=== PATIENT | female | born 1960 | race Caucasian/White ===

== ENCOUNTER → 2017-11-07 | Outpatient (CLI) | payer MEDICARE | PROVIDERS: ATTEND Internal Medicine Infectious Disease | DX: Z51.81 Encounter for therapeutic drug level monitoring (principal); Z79.2 Long term (current) use of antibiotics | CPT/HCPCS: 80202 ==

== ENCOUNTER 2017-12-28 19:52 | Emergency (ER) | payer MEDICARE, OTHER ==
[~2017-12-28] VITALS: Ht 152.4 cm; Wt 45.4 kg
[2017-12-28 20:11] LABS: BASOPHILS % (AUTO) 0 % (0-10); EOSINOPHILS % (AUTO) 0 % (0-10); LYMPHOCYTES # (AUTO) 0.6 X 10^3 (1.0-4.0); LYMPHOCYTES % (AUTO) 6 % (12-44); MEAN CORPUSCULAR HEMOGLOBIN 30 PG (25-34); MEAN CORPUSCULAR HGB CONC 33 G/DL (32-36); MEAN CORPUSCULAR VOLUME 91 FL (80-99); MEAN PLATELET VOLUME 9.8 FL (7.4-10.4); MONOCYTES % (AUTO) 10 % (0-12); NEUTROPHILS # (AUTO) 8.1 X 10^3 (1.8-7.8); NEUTROPHILS % (AUTO) 84 % (42-75); PLATELET COUNT 201 10^3/uL (130-400); RED BLOOD COUNT 1.77 10^6/uL (4.35-5.85); RED CELL DISTRIBUTION WIDTH 19.9 % (10.0-14.5); WHITE BLOOD COUNT 9.7 10^3/uL (4.3-11.0)
[2017-12-28 20:13] LABS: HEMATOCRIT 16 % (35-52); HEMOGLOBIN 5.3 G/DL (11.5-16.0)
[2017-12-28 20:24] LABS: INR 1.4 (0.8-1.4); PROTHROMBIN TIME PATIENT 17.3 SEC (12.2-14.7)
[2017-12-28 20:28] LABS: BAND NEUTROPHILS 6 %; BASOPHILS % (MANUAL) 0 %; EOSINOPHILS % (MANUAL) 0 %; LYMPHOCYTES % (MANUAL) 6 %; MONOCYTES % (MANUAL) 5 %; NEUTROPHILS % (MANUAL) 83 %; RBC MORPH NORMAL
[2017-12-28 20:29] LABS: ALBUMIN 2.8 GM/DL (3.2-4.5); BILIRUBIN,TOTAL 0.3 MG/DL (0.1-1.0); CALCIUM 9.3 MG/DL (8.5-10.1); CREATININE SERUM 3.81 MG/DL (0.60-1.30); POTASSIUM 4.6 MMOL/L (3.6-5.0); TOTAL PROTEIN 7.4 GM/DL (6.4-8.2)
[2017-12-28] MEDS ORDERED: fentaNYL INJECTION 100 MCG/2 ML AMP IVP ONE (20:30)
[2017-12-28] MEDS ORDERED: CEFEPIME INJECTION 2,000 MG in NS (IVPB) 50 ML IV ONE (20:30)
[2017-12-28] MEDS ORDERED: NS IV 1000 ML 1,000 ML ONE (21:19)
--- NOTE | 2017-12-28 21:28 | Diagnostic Imaging Report ---
PROCEDURE: CT abdomen and pelvis without contrast. TECHNIQUE: Multiple contiguous axial images were obtained through the abdomen and pelvis without the use of intravenous contrast. INDICATION: Recent unknown surgery with swelling at the incision site. COMPARISON: No comparison available. FINDINGS: There is a moderate right-sided pleural collection demonstrated. This is of low density compatible with an effusion. There is some minor right base consolidation. There do, however, appear to be alveolar infiltrates within the left lower lobe suggesting pneumonitis or pneumonia. The liver demonstrates no noncontrast evidence of a focal intrahepatic abnormality. The patient is status post cholecystectomy. There are a few bubbles of biliary gas likely related to sphincterotomy. There is gas noted within the common bile duct. The spleen demonstrates no focal abnormality. There is no adrenal mass. The pancreas is unremarkable. The kidneys are atrophic and demonstrate nephrocalcinosis. There is no hydronephrosis. There is an apparent gastric lap band. The small and large bowel appear normal in caliber without evidence of obstruction. There is some mild diffuse thickening demonstrated of the sigmoid colon and the rectum which may be on a congestive basis or related to third spacing. There is no free fluid within the pelvis. The urinary bladder is decompressed by a Benoit catheter. The uterus is unremarkable without evidence of a pelvic mass. No pathologically enlarged lymph nodes are demonstrated. Rather severe atherosclerotic calcification is present within the aorta and within its branches. There are degenerative features present within the spine but no acute or suspicious osseous abnormality. Extensive body wall edema is noted without evidence of a definable fluid collection or abscess. IMPRESSION: 1. Moderate right pleural effusion. 2. Alveolar opacities within the left lower lobe suggest developing pneumonia or pneumonitis. 3. Operative changes of cholecystectomy with pneumobilia. There is no abnormal biliary dilatation. 4. Prior operative changes of a gastric lap band. 5. Atrophic kidneys with nephrocalcinosis. 6. Advanced atherosclerotic disease. 7. No findings of bowel obstruction. The diffuse thickening of the distal segments of the colon is favored to likely be on a congestive basis as there is no adjacent inflammation within the pericolonic fat. 8. No free air, free fluid or abscess demonstrated. 9. Extensive body wall edema. Dictated by: Dictated on workstation # [id number]
--- NOTE | 2017-12-28 21:37 | Diagnostic Imaging Report ---
EXAMINATION: Portable chest INDICATION: Altered mental status with infected wound from abdominal surgery. Correlation is made with CT examination from 12/28/2017. FINDINGS: Patient's known right-sided effusion is not as well delineated on this examination. There is blunting of the right costophrenic angle. The patchy opacity within the left lower lobe minimally evident. In the right lung, there also appear to be some interstitial opacities within the more superior aspect of the right lung. Given the appearance on CT within the left lower lobes this is favored to be on an infectious basis. Heart size is mildly prominent but the central pulmonary vascularity appears normal. There is no pneumothorax. There is a gastric lap band in the left upper quadrant. IMPRESSION: 1. Patchy interstitial infiltrates within both lungs and known right-sided pleural effusion. Given the CT appearance of the opacities on the abdominal CT, this is favored to be on an infectious basis. Asymmetry would also be atypical for pulmonary edema. Dictated by: Dictated on workstation # [id number]
--- NOTE | 2017-12-28 21:42 | ED General ---
General Chief Complaint: Altered Mental Status Stated Complaint: AMS Nursing Triage Note: PT TO ROOM #5 [facility]IA [facility] C[facility] FROM [facility] WITH C/O ALTERED MENTAL STATUS. FACILITY REPORTS PT HAD DIALYSIS THIS AM AND RETURNED WITH ALTERED MENTAL STATUS. FACILITY REPORTS PT REFUSES TO ALLOW ABD DRSG TO BE CHANGED FROM SURGICAL PROCEDURE UNKNOWN. UPON ARRIVAL TO ED PT ABLE TO FOLLOW COMMANDS AND ALERT TO SELF, SAME, AND . PT UNABLE TO RECALL DAYS EVENTS AND CURRENT SITUATION. PT REPORTS PAIN TO LOWER ABD. LOWER ABD DRSG REMOVED WITH PROVIDER IN ROOM AND AREA NOTED TO HAVE PURULENT DRAINAGE WITH FOUL ODOR NOTED. [facility] PLACED 20G IV TO RT HAND AND INFUSED 350ML NS IN TRANSIT TO ED. LUNG SOUNDS CTA BILAT. 2MM PERRLA. BS 208. PT NOTED TO HAVE MILD EDEMA TO BILAT LOWER EXTREMITIES. Nursing Sepsis Screen: Possible Severe Sepsis Risk Source of Information: Patient, EMS, Family, Prison Records, Old Records Exam Limitations: No Limitations History of Present Illness Date Seen by Provider: Dec 28, 2017 Time Seen by Provider: 19:53 Initial Comments This 57-year-old woman presents to the emergency room via EMS from [facility] in [place], [place], with concerns about fever and altered mental status. Patient went to dialysis this morning and returned home disoriented, confused, and somewhat lethargic as reported by detention staff. She has an extensive chronic wound of the lower abdomen that is cared for by detention staff. They report the wound seems to be worsening and there appears to be black necrotic tissue in the wound. There is also greenish drainage coming from the wound (as seen on dressings). Patient has had increased pain in that area in recent days and her Percocet dose was recently increased. Staff also report that Protonix and antibiotics (Bactrim) were ordered to start today. Patient has a history of anemia and has required transfusions in the past. There is no obvious source of bleeding per detention staff. Patient developed a fever of 100.9 today for detention staff. Vital signs are stable upon arrival. Patient's primary care provider is Dr. Tate. Her critical care specialist is Ana Barrios. Patient is normally alert, oriented, conversational, and able to get around in a wheelchair independently. Allergies and Home Medications Allergies Coded Allergies: lisinopril (Verified Allergy, Unknown, 12/28/17) Patient Home Medication List Home Medication List Reviewed: Yes Review of Systems Review of Systems Constitutional: see HPI EENTM: no symptoms reported Respiratory: no symptoms reported Cardiovascular: no symptoms reported Gastrointestinal: no symptoms reported Genitourinary: see HPI : No Musculoskeletal: no symptoms reported Skin: see HPI Psychiatric/Neurological: See HPI Hematologic/Lymphatic: See HPI Immunological/Allergic: no symptoms reported Past Uydzebx-Xkthmg-Pygqyp Hx Past Med/Social Hx: Reviewed and Corrections made Patient Social History Recent Foreign Travel: No Contact w/Someone Who Travel: No Recent Infectious Disease Expo: No Past Medical History Surgeries: Yes (fistula left upper extremity) Abdominal Respiratory: No Cardiac: Yes (chronic hypoxia) High Cholesterol, Hypertension Neurological: No : No 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: No Genitourinary: Yes Renal Failure, Dialysis Gastrointestinal: No Musculoskeletal: No Endocrine: Yes Diabetes, Insulin dep HEENT: No Cancer: No Psychosocial: No Integumentary: Yes (chronic wound of the abdomen) Blood Disorders: Yes (anemia) Physical Exam-Suspected Sepsis Physical Exam Vital Signs Vital Signs - First Documented 12/28/17 19:55 Temp 99.6 Pulse 96 Resp 18 B/P (MAP) 138/83 (101) Pulse Ox 100 O2 Delivery Nasal Cannula O2 Flow Rate 2.00 Capillary Refill : Less Than 3 Seconds Blood Pressure Mean: 101 Height, Weight, BMI Height: 5'0" Weight: 100lbs. oz. 45.798095sw; BMI Method:Estimated General Appearance: No Apparent Distress, WD/WN HEENT: PERRL/EOMI, Normal ENT Inspection, Other (mucous membranes somewhat dry) Neck: Normal Inspection Respiratory: Lungs Clear, Normal Breath Sounds, No Accessory Muscle Use, No Respiratory Distress Cardiovascular: Regular Rate, Rhythm, No Edema, No Murmur Gastrointestinal: Abnormal Bowel Sounds (decreased bowel sounds), Tenderness, Other (there is a large deep packed wound extending across the lower abdomen. There appears to be some necrotic tissue within the wound. There is some green drainage on the dressing.) Extremity: Normal Capillary Refill, Normal Inspection, No Pedal Edema Neurologic/Psychiatric: Alert, No Motor/Sensory Deficits, Normal Mood/Affect, refrigerator car icer II-XII Norm as Tested, Other (alert and talkative but disoriented/confused) Skin: warm/dry, other (large packed abdominal wound with apparent necrotic tissue. There is greenish drainage on the dressing. Skin is indurated and very tender) Focused Exam Lactate Level 12/28/17 20:22: Lactic Acid Level 1.31 Lactic Acid Level Laboratory Tests Test 12/28/17 20:22 Lactic Acid Level 1.31 MMOL/L (0.50-2.00) Progress/Results/Core Measures Suspected Sepsis Recent Fever Within 48 Hours: Yes Infection Criteria Present: Suspected New Infection New/Unexplained Altered Menta: Yes Sepsis Screen: Possible Severe Sepsis Risk SIRS Temperature:99.6 Pulse: 96 Respiratory Rate: 18 Laboratory Tests 12/28/17 19:55: White Blood Count 9.7 Blood Pressure 138 /83 Mean: 101 12/28/17 20:22: Lactic Acid Level 1.31 Laboratory Tests 12/28/17 19:55: Creatinine 3.81H, INR Comment 1.4, Platelet Count 201, Total Bilirubin 0.3 Results/Orders Lab Results Laboratory Tests Test 12/28/17 19:55 12/28/17 20:01 12/28/17 20:22 Range/Units White Blood Count 9.7 4.3-11.0 10^3/uL Red Blood Count 1.77 L 4.35-5.85 10^6/uL Hemoglobin 5.3 *L 11.5-16.0 G/DL Hematocrit 16 *L 35-52 % Mean Corpuscular Volume 91 80-99 FL Mean Corpuscular Hemoglobin 30 25-34 PG Mean Corpuscular Hemoglobin Concent 33 32-36 G/DL Red Cell Distribution Width 19.9 H 10.0-14.5 % Platelet Count 201 130-400 10^3/uL Mean Platelet Volume 9.8 7.4-10.4 FL Neutrophils (%) (Auto) 84 H 42-75 % Lymphocytes (%) (Auto) 6 L 12-44 % Monocytes (%) (Auto) 10 0-12 % Eosinophils (%) (Auto) 0 0-10 % Basophils (%) (Auto) 0 0-10 % Neutrophils # (Auto) 8.1 H 1.8-7.8 X 10^3 Lymphocytes # (Auto) 0.6 L 1.0-4.0 X 10^3 Monocytes # (Auto) 1.0 0.0-1.0 X 10^3 Eosinophils # (Auto) 0.0 0.0-0.3 10^3/uL Basophils # (Auto) 0.0 0.0-0.1 10^3/uL Neutrophils % (Manual) 83 % Lymphocytes % (Manual) 6 % Monocytes % (Manual) 5 % Eosinophils % (Manual) 0 % Basophils % (Manual) 0 % Band Neutrophils 6 % Blood Morphology Comment NORMAL Prothrombin Time 17.3 H 12.2-14.7 SEC INR Comment 1.4 0.8-1.4 Activated Partial Thromboplast Time 40 H 24-35 SEC Sodium Level 133 L 135-145 MMOL/L Potassium Level 4.6 3.6-5.0 MMOL/L Chloride Level 94 L 98-107 MMOL/L Carbon Dioxide Level 20 L 21-32 MMOL/L Anion Gap 19 H 5-14 MMOL/L Blood Urea Nitrogen 33 H 7-18 MG/DL Creatinine 3.81 H 0.60-1.30 MG/DL Estimat Glomerular Filtration Rate 12 BUN/Creatinine Ratio 9 Glucose Level 155 H 70-105 MG/DL Calcium Level 9.3 8.5-10.1 MG/DL Corrected Calcium 10.3 H 8.5-10.1 MG/DL Total Bilirubin 0.3 0.1-1.0 MG/DL Aspartate Amino Transf (AST/SGOT) 25 5-34 U/L Alanine Aminotransferase (ALT/SGPT) 19 0-55 U/L Alkaline Phosphatase 275 H 40-136 U/L Total Protein 7.4 6.4-8.2 GM/DL Albumin 2.8 L 3.2-4.5 GM/DL Glucometer 208 H 70-110 MG/DL Lactic Acid Level 1.31 0.50-2.00 MMOL/L My Orders Orders - ZACHERY BRANTLEY MD Cbc With Automated Diff (12/28/17 20:03) Comprehensive Metabolic Panel (12/28/17 20:03) Blood Culture (12/28/17 20:03) Sputum Culture (12/28/17 20:03) Urinalysis (12/28/17 20:03) Urine Culture (12/28/17 20:03) Protime With Inr (12/28/17 20:03) Partial Thromboplastin Time (12/28/17 20:03) Chest 1 View, Ap/Pa Only (12/28/17 20:03) Saline Lock/Iv-Start (12/28/17 20:03) Saline Lock/Iv-Start (12/28/17 20:03) Vital Signs Adult Sepsis Patie Q15M (12/28/17 20:03) O2 (12/28/17 20:03) Remove Rings In Anticipation O (12/28/17 20:03) Lactic Acid Analyzer (12/28/17 20:03) Manual Differential (12/28/17 19:55) Red Cells Leukocytes Reduced (12/28/17 20:14) Ct Abdomen/Pelvis Wo (12/28/17 20:14) Wound Culture (12/28/17 20:14) Cefepime Injection (Maxipime Injection) (12/28/17 20:30) Type And Screen (12/28/17 20:14) Fentanyl Injection (Sublimaze Injection (12/28/17 20:30) Ns Iv 1000 Ml (Sodium Chloride 0.9%) (12/28/17 21:19) Medications Given in ED Current Medications Medications Dose Ordered Sig/Jorge A Route Start Time Stop Time Status Last Admin Dose Admin Cefepime HCl 2000 mg/Sodium Chloride 50 ml @ 100 mls/hr ONCE ONCE IV 12/28/17 20:30 12/28/17 20:59 DC 12/28/17 20:50 100 MLS/HR Fentanyl Citrate 12.5 mcg ONCE ONCE IVP 12/28/17 20:30 12/28/17 20:31 DC 12/28/17 20:49 12.5 MCG Vital Signs/I&O 12/28/17 12/28/17 19:55 21:51 Temp 99.6 98.0 Pulse 96 82 Resp 18 18 B/P (MAP) 138/83 (101) 149/40 Pulse Ox 100 96 O2 Delivery Nasal Cannula Nasal Cannula O2 Flow Rate 2.00 2.00 Capillary Refill : Less Than 3 Seconds Blood Pressure Mean: 101 Progress Note : Progress Note Septic workup was pursued because of report of fever. Patient received approximately 700 mL of normal saline as started by EMS. Patient was found to be severely anemic and blood transfusion was started with one unit of packed red blood cells. No active bleeding was identified. Blood and wound cultures were obtained. Cefepime 2 g IV was started for initial antibiotic management. Case was discussed with Dr. Hanks, hospitalist at [facility] in [place]. He excepts a transfer of patient. He requested the transfusion of one unit packed red blood cells as well as initial antibiotic therapy. He is in agreement with cefepime and vancomycin as a second antibiotic to be administered. We were not able to start the vancomycin prior to transfer. Blood was transfusing at the time of transfer. Patient's vital signs remained stable. She remained alert. CT scan was reviewed just prior to transfer and patient had a right pleural effusion with possible superimposed pneumonia. The abdominal wound did not demonstrate any deep abscess or other major findings on CT imaging. Blood sugar remained stable. Catheter urine was attempted but no urine was produced. Patient states she no longer produces any significant urine. Patient's states she is a full code but does not want prolonged life supporting measures if she has neurologic compromise. He did present to the emergency room prior to transfer. He supported the decision for transfer, antibiotics, and transfusion. Imaging studies were clouded to [facility]. Diagnostic Imaging Diagonstic Imaging: CT Plain Films/CT/US/NM/MRI: abdomen, pelvis Comments CT abdomen and pelvis viewed by me and report reviewed. See report below: NAME: LUKE DANGELO [facility] REC#: [id number] PT STATUS: REG ER : 1960 PHYSICIAN: ZACHERY BRANTLEY MD ADMIT DATE: 12/28/17/ER Signed Date of Exam: 12/28/17 CT ABDOMEN/PELVIS WO PROCEDURE: CT abdomen and pelvis without contrast. TECHNIQUE: Multiple contiguous axial images were obtained through the abdomen and pelvis without the use of intravenous contrast. INDICATION: Recent unknown surgery with swelling at the incision site. COMPARISON: No comparison available. FINDINGS: There is a moderate right-sided pleural collection demonstrated. This is of low density compatible with an effusion. There is some minor right base consolidation. There do, however, appear to be alveolar infiltrates within the left lower lobe suggesting pneumonitis or pneumonia. The liver demonstrates no noncontrast evidence of a focal intrahepatic abnormality. The patient is status post cholecystectomy. There are a few bubbles of biliary gas likely related to sphincterotomy. There is gas noted within the common bile duct. The spleen demonstrates no focal abnormality. There is no adrenal mass. The pancreas is unremarkable. The kidneys are atrophic and demonstrate nephrocalcinosis. There is no hydronephrosis. There is an apparent gastric lap band. The small and large bowel appear normal in caliber without evidence of obstruction. There is some mild diffuse thickening demonstrated of the sigmoid colon and the rectum which may be on a congestive basis or related to third spacing. There is no free fluid within the pelvis. The urinary bladder is decompressed by a Benoit catheter. The uterus is unremarkable without evidence of a pelvic mass. No pathologically enlarged lymph nodes are demonstrated. Rather severe atherosclerotic calcification is present within the aorta and within its branches. There are degenerative features present within the spine but no acute or suspicious osseous abnormality. Extensive body wall edema is noted without evidence of a definable fluid collection or abscess. IMPRESSION: 1. Moderate right pleural effusion. 2. Alveolar opacities within the left lower lobe suggest developing pneumonia or pneumonitis. 3. Operative changes of cholecystectomy with pneumobilia. There is no abnormal biliary dilatation. 4. Prior operative changes of a gastric lap band. 5. Atrophic kidneys with nephrocalcinosis. 6. Advanced atherosclerotic disease. 7. No findings of bowel obstruction. The diffuse thickening of the distal segments of the colon is favored to likely be on a congestive basis as there is no adjacent inflammation within the pericolonic fat. 8. No free air, free fluid or abscess demonstrated. 9. Extensive body wall edema. Dictated by: Dictated on workstation # [id number] Dict: 12/28/172114 Trans: 12/28/172138 Interpreted by: BRENT DAVIS MD Electronically signed by: BRENT DAVIS MD 12/28/172138 Diagonstic Imaging: Xray Plain Films/CT/US/NM/MRI: chest Comments Chest x-ray viewed by me and report reviewed. See report below: NAME: LUKE DANGELO [facility] REC#: [id number] PT STATUS: REG ER : 1960 PHYSICIAN: ZACHERY BRANTLEY MD ADMIT DATE: 12/28/17/ER Signed Date of Exam: 12/28/17 CHEST 1 VIEW, AP/PA ONLY EXAMINATION: Portable chest INDICATION: Altered mental status with infected wound from abdominal surgery. Correlation is made with CT examination from 12/28/2017. FINDINGS: Patient's known right-sided effusion is not as well delineated on this examination. There is blunting of the right costophrenic angle. The patchy opacity within the left lower lobe minimally evident. In the right lung, there also appear to be some interstitial opacities within the more superior aspect of the right lung. Given the appearance on CT within the left lower lobes this is favored to be on an infectious basis. Heart size is mildly prominent but the central pulmonary vascularity appears normal. There is no pneumothorax. There is a gastric lap band in the left upper quadrant. IMPRESSION: 1. Patchy interstitial infiltrates within both lungs and known right-sided pleural effusion. Given the CT appearance of the opacities on the abdominal CT, this is favored to be on an infectious basis. Asymmetry would also be atypical for pulmonary edema. Dictated by: Dictated on workstation # [id number] Dict: 12/28/172127 Trans: 12/28/172138 Interpreted by: BRENT DAVIS MD Electronically signed by: BRENT DAVIS MD 12/28/172138 Departure Impression Primary Impression: Febrile illness Additional Impressions: End stage renal failure on dialysis Pleural effusion, right Chronic abdominal wound infection Qualified Codes: S31.109A - Unspecified open wound of abdominal wall, unspecified quadrant without penetration into peritoneal cavity, initial encounter; L08.9 - Local infection of the skin and subcutaneous tissue, unspecified Abdominal pain Qualified Codes: R10.30 - Lower abdominal pain, unspecified Altered mental status Qualified Codes: R41.82 - Altered mental status, unspecified Severe anemia Disposition: 02 XFER SHT-TRM HOSP Condition: Stable Transfer Time Spoke to Accepting Phy: 20:35 Transfer Progress Notes Case was discussed with who accepts transfer. Transfer Time: 22:03 Transfer Facility: [facility] via [facility] Method of Transfer: EMS Departure-Patient Inst. Referrals: KELLI TATE MD (PCP/Family) Primary Care Physician ZACHERY BRANTLEY MD Dec 28, 2017 21:42
[2017-12-28 21:51] VITALS: BP 149/40
[2017-12-28 22:01] VITALS: BP 141/48
[2017-12-28 22:13] VITALS: BP 141/48
== END 2017-12-28 22:13 | disposition short-term general hospital (02) ==
LOC: EDUNIT# 19:52 → ER 19:53
DX: E11.22 Type 2 diabetes mellitus with diabetic chronic kidney disease (principal); I12.0 Hypertensive chronic kidney disease with stage 5 chronic kidney disease or end stage renal disease; N18.6 End stage renal disease; J91.8 Pleural effusion in other conditions classified elsewhere; D64.9 Anemia, unspecified; L98.499 Non-pressure chronic ulcer of skin of other sites with unspecified severity; R41.82 Altered mental status, unspecified; E78.00 Pure hypercholesterolemia, unspecified; Z99.2 Dependence on renal dialysis; Z88.8 Allergy status to other drugs, medicaments and biological substances
CPT/HCPCS: 36415; 36430; 51702; 71045; 74176; 80053; 82962; 83605; 85007; 85027; 85610; 85730; 86850; 86900; 86901; 86920; 87040; 87070; 87077; 87186; 87205; 99291

== ENCOUNTER 2018-01-05 18:59 | Emergency (ER) | payer MEDICARE, OTHER ==
[~2018-01-05] VITALS: Ht 167.6 cm; Wt 68.0 kg
[2018-01-05 20:04] LABS: BASOPHILS % (AUTO) 0 % (0-10); EOSINOPHILS % (AUTO) 0 % (0-10); HEMATOCRIT 23 % (35-52); HEMOGLOBIN 7.4 G/DL (11.5-16.0); LYMPHOCYTES # (AUTO) 0.7 X 10^3 (1.0-4.0); LYMPHOCYTES % (AUTO) 18 % (12-44); MEAN CORPUSCULAR HEMOGLOBIN 29 PG (25-34); MEAN CORPUSCULAR HGB CONC 32 G/DL (32-36); MEAN CORPUSCULAR VOLUME 91 FL (80-99); MEAN PLATELET VOLUME 10.1 FL (7.4-10.4); MONOCYTES # (AUTO) 0.6 X 10^3 (0.0-1.0); MONOCYTES % (AUTO) 14 % (0-12); NEUTROPHILS # (AUTO) 2.8 X 10^3 (1.8-7.8); NEUTROPHILS % (AUTO) 68 % (42-75); PLATELET COUNT 180 10^3/uL (130-400); RED BLOOD COUNT 2.58 10^6/uL (4.35-5.85); RED CELL DISTRIBUTION WIDTH 19.2 % (10.0-14.5); WHITE BLOOD COUNT 4.1 10^3/uL (4.3-11.0)
--- NOTE | 2018-01-05 20:15 | ED Integumentary General ---
General Chief Complaint: Skin/Wound Problems Stated Complaint: WOUND Nursing Triage Note: PT BROUGHT IN BY EMS WITH COMPLAINT OF ABD WOUND. PT RECENTLY DISCHARGED FROM [facility] FOR WOUND CARE. PER ASSISTED, PT NEEDED TO BE SENT TO FOR WOUND CARE TONIGHT. PT DOES NOT KNOW HOW WOUND BEGAN Source: patient Exam Limitations: no limitations History of Present Illness Date Seen by Provider: Jan 05, 2018 Time Seen by Provider: 19:15 Initial Comments Here with report of wound to the abdomen that there is concerns about worsening. Patient has been in another hospital for this wound and recently got out of the hospital at [facility] in [place], [place] and sent back to snf. Wound care evaluation was done today and apparently the wound care physician, Dr. 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 He is concerned that debridement and sent her for evaluation. Initially he wanted the patient sent to [facility] as reportedly [facility] in [place] does not believe it needs surgery. Dr. Childers is of different opinion. He actually requested EMS transport directly to but this was unable to be accomplished and patient was transferred to our facility. Patient reports that she feels about the same she' s has for the last several days. No recent fever. Wound pain is about the same. Denies nausea or vomiting. She does have PICC line placed to the right arm. She is apparently on vancomycin IV. History challenge by multiple facilities evaluating and doctors evaluating the patient. Timing/Duration: this afternoon Severity: mild, moderate Location: torso (pannus of the abdomen) Possible Cause: no cause identified Associated Symptoms: change in skin texture, edema; No fever Allergies and Home Medications Allergies Coded Allergies: lisinopril (Verified Allergy, Unknown, 12/28/17) Patient Home Medication List Home Medication List Reviewed: Yes Review of Systems Review of Systems Constitutional: see HPI; No chills, No fever Respiratory: no symptoms reported Cardiovascular: no symptoms reported Gastrointestinal: No diarrhea, No nausea, No vomiting Genitourinary: no symptoms reported Musculoskeletal: no symptoms reported Skin: see HPI, change in color, lesions, other (large pannus wound of the left and right lower abdomen) Psychiatric/Neurological: No Symptoms Reported All Other Systems Reviewed Negative Unless Noted: Yes Past Qqykeeu-Vvqfwk-Efzimw Hx Past Med/Social Hx: Reviewed Nursing Past Med/Soc Hx Patient Social History Alcohol Use: Denies Use Recreational Drug Use: No Smoking Status: Former Smoker 2nd Hand Smoke Exposure: No Recent Foreign Travel: No Contact w/Someone Who Travel: No Recent Infectious Disease Expo: No Recent Hopitalizations: No Immunizations Up To Date Tetanus Booster (TDap): Unknown PED Vaccines UTD: Yes Seasonal Allergies Seasonal Allergies: No Past Medical History Surgeries: Yes (fistula left upper extremity) Abdominal Respiratory: No Cardiac: Yes (chronic hypoxia) High Cholesterol, Hypertension Neurological: No 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: No Genitourinary: Yes Renal Failure, Dialysis Gastrointestinal: No Gastroesophageal Reflux Musculoskeletal: No Endocrine: Yes Diabetes, Insulin dep HEENT: No Cancer: No Psychosocial: No Integumentary: Yes (chronic wound of the abdomen) Recent Skin Changes Blood Disorders: Yes (anemia) Family Medical History Reviewed Nursing Family Hx Physical Exam Vital Signs Vital Signs - First Documented 01/05/18 19:00 Temp 97.7 Pulse 94 Resp 18 B/P (MAP) 119/25 (56) Pulse Ox 98 O2 Delivery Nasal Cannula O2 Flow Rate 2.00 Capillary Refill : Less Than 3 Seconds General Appearance: WD/WN, no apparent distress HEENT: PERRL/EOMI, pharynx normal Neck: full range of motion, supple Cardiovascular: regular rate, rhythm, no murmur Respiratory: lungs clear, normal breath sounds Gastrointestinal: soft, tenderness (lower pannus) Extremities: non-tender, normal inspection Neurologic/Psychiatric: alert, oriented x 3 Skin Problem Location: torso (anterior abdomen on the pannus from the area of the suprapubic region extending to the pannus fold from hip to hip) Skin Problem Character: other (wound is surrounded by warmth. There is a black pressure-like cover over the pannus wound. The wound extends well into the pannus. There does not appear to be foul-smelling drainage.) Progress/Results/Core Measures Results/Orders Lab Results Laboratory Tests Test 01/05/18 19:09 Range/Units White Blood Count 4.1 L 4.3-11.0 10^3/uL Red Blood Count 2.58 L 4.35-5.85 10^6/uL Hemoglobin 7.4 L 11.5-16.0 G/DL Hematocrit 23 L 35-52 % Mean Corpuscular Volume 91 80-99 FL Mean Corpuscular Hemoglobin 29 25-34 PG Mean Corpuscular Hemoglobin Concent 32 32-36 G/DL Red Cell Distribution Width 19.2 H 10.0-14.5 % Platelet Count 180 130-400 10^3/uL Mean Platelet Volume 10.1 7.4-10.4 FL Neutrophils (%) (Auto) 68 42-75 % Lymphocytes (%) (Auto) 18 12-44 % Monocytes (%) (Auto) 14 H 0-12 % Eosinophils (%) (Auto) 0 0-10 % Basophils (%) (Auto) 0 0-10 % Neutrophils # (Auto) 2.8 1.8-7.8 X 10^3 Lymphocytes # (Auto) 0.7 L 1.0-4.0 X 10^3 Monocytes # (Auto) 0.6 0.0-1.0 X 10^3 Eosinophils # (Auto) 0.0 0.0-0.3 10^3/uL Basophils # (Auto) 0.0 0.0-0.1 10^3/uL Sodium Level 141 135-145 MMOL/L Potassium Level 3.9 3.6-5.0 MMOL/L Chloride Level 99 98-107 MMOL/L Carbon Dioxide Level 18 L 21-32 MMOL/L Anion Gap 24 H 5-14 MMOL/L Blood Urea Nitrogen 44 H 7-18 MG/DL Creatinine 5.30 H 0.60-1.30 MG/DL Estimat Glomerular Filtration Rate 8 BUN/Creatinine Ratio 8 Glucose Level 210 H 70-105 MG/DL Lactic Acid Level 1.19 0.50-2.00 MMOL/L Calcium Level 9.3 8.5-10.1 MG/DL Corrected Calcium 10.1 8.5-10.1 MG/DL Total Bilirubin 0.2 0.1-1.0 MG/DL Aspartate Amino Transf (AST/SGOT) 13 5-34 U/L Alanine Aminotransferase (ALT/SGPT) 14 0-55 U/L Alkaline Phosphatase 194 H 40-136 U/L C-Reactive Protein High Sensitivity 3.97 H 0.00-0.50 MG/DL Total Protein 7.8 6.4-8.2 GM/DL Albumin 3.0 L 3.2-4.5 GM/DL My Orders Orders - FAIZAN MUIR MD Cbc With Automated Diff (01/05/18 19:56) Comprehensive Metabolic Panel (01/05/18 19:56) Hs C Reactive Protein (01/05/18 19:56) Lactic Acid Analyzer (01/05/18 19:56) Blood Culture (01/05/18 19:56) Vital Signs/I&O 01/05/18 19:00 Temp 97.7 Pulse 94 Resp 18 B/P (MAP) 119/25 (56) Pulse Ox 98 O2 Delivery Nasal Cannula O2 Flow Rate 2.00 Blood Pressure Mean: 56 Progress Progress Note : Progress Note Seen and evaluated. I did speak with Dr. Childers, the wound care physician who is phone number is [phone] regarding the wound. He is very concerned that this is what necrosis and medical condition and need surgical debridement. We will evaluate labs and I will try to contact [facility] in [place], [place] as that has been the facility treating her. Patient does have fairly significant wound. She is on dialysis and is due for dialysis tomorrow as she has it on Monday, and Monday. Monitor patient. 2035: I have spoken more with the patient about her illness. I have initiated contact with [facility] in [place], [place]. Patient and family report that the snf has concerns about their ability to care for her wound. The wound care team has concerns about the type of wound and the management needs. 2109: I have spoken with the surgeon on-call at [facility] in [place], [place]. 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 He indicates that she could be reevaluated at [facility] in [place]. We can arrange for direct admission to that facility and they are certainly willing to get this done for the patient for reevaluation especially due to concerns about wound changes from the snf and the wound care team at the snf. I did discuss this with the patient and she is really wanting to go to . There is concerns because her is the capability of [facility] in [facility] is able to handle her current needs and there may be cost associated with transfer to facility at greater distance due to current regulations. This was discussed with the patient. She really wants to go to but does not want to incur fees. She would prefer to just leave and have family member take her up there. 2119: I did call [facility] to inform them of the patient's concerns and the likelihood that she will department here AGAINST MEDICAL ADVICE and presented to the emergency department there. I did discuss all of the current findings and patient and family concerns and will send any and all information available to me to their facility to facilitate appropriate medical care. We have their fax number and direct line for the triage nurse. 2129: I rediscussed this all with the family and the patient has decided to leave AGAINST MEDICAL ADVICE as soon as family arise with oxygen and they will go directly to emergency department. Patient will be signed out AGAINST MEDICAL ADVICE due to ongoing care needs and my concern that she has not been out of a medical care facility in several months due to her dialysis and underlying medical condition and transfer by private vehicle could be dangerous to her. Patient understands and agrees. will be updated of departure. 2329: Sister arrives. She did not bring oxygen and is going back to the snf to get that. Patient is still wanting to go to by POV. She remains stable with heart rate of 77, O2 sat 99 percent on 2 L via nasal cannula with blood pressure 128/55 and in no distress. Patient still intends to leave AGAINST MEDICAL ADVICE. Departure Impression Primary Impression: Chronic abdominal wound infection Qualified Codes: S31.109S - Unspecified open wound of abdominal wall, unspecified quadrant without penetration into peritoneal cavity, sequela; L08.9 - Local infection of the skin and subcutaneous tissue, unspecified Additional Impressions: End stage renal failure on dialysis Calciphylaxis cutis Disposition: AGAINST MEDICAL ADVICE Condition: Stable/Unchanged Departure-Patient Inst. Decision time for Depature: 21:35 Referrals: KELLI PRAJAPATI MD (PCP/Family) Primary Care Physician Patient Instructions: Cellulitis (Skin Infection), Adult (DC) Add. Discharge Instructions: All discharge instructions reviewed with patient and/or family. Voiced understanding. You have large wound to the abdomen that needs further evaluation and care. You are leaving AGAINST MEDICAL ADVICE to go to [facility]. Please do not hesitate to return for any concerns as we will assist with transfer to closest appropriate medical facility as needed and provide care as needed. You should go directly to the Medical Center of your choosing. Copy Copies To 1: SHAWNA HINES TIMOTHY D MD Jan 05, 2018 20:15
[2018-01-05 20:17] LABS: BILIRUBIN,TOTAL 0.2 MG/DL (0.1-1.0); CALCIUM 9.3 MG/DL (8.5-10.1); CREATININE SERUM 5.3 MG/DL (0.60-1.30); POTASSIUM 3.9 MMOL/L (3.6-5.0); TOTAL PROTEIN 7.8 GM/DL (6.4-8.2)
[2018-01-06 00:07] VITALS: BP 128/55
== END 2018-01-06 00:07 | disposition left against medical advice (07) ==
LOC: EDUNIT# 18:59 → ER 19:02
DX: S31.109A Unspecified open wound of abdominal wall, unspecified quadrant without penetration into peritoneal cavity, initial encounter (principal); L08.9 Local infection of the skin and subcutaneous tissue, unspecified; E11.22 Type 2 diabetes mellitus with diabetic chronic kidney disease; I12.0 Hypertensive chronic kidney disease with stage 5 chronic kidney disease or end stage renal disease; N18.6 End stage renal disease; E83.59 Other disorders of calcium metabolism; E78.00 Pure hypercholesterolemia, unspecified; K21.9 Gastro-esophageal reflux disease without esophagitis; Z99.2 Dependence on renal dialysis; Z88.8 Allergy status to other drugs, medicaments and biological substances; Z87.891 Personal history of nicotine dependence; X58.XXXA Exposure to other specified factors, initial encounter
CPT/HCPCS: 36415; 80053; 83605; 85025; 86141; 87040

== ENCOUNTER 2018-01-23 10:18 | Emergency (ER) | payer MEDICARE, OTHER ==
[~2018-01-23] VITALS: Ht 167.6 cm; Wt 68.0 kg
[2018-01-23] MEDS ORDERED: DEXTROSE 50% 50 ML (IMS) SYR ONE (10:29)
[2018-01-23 10:54] LABS: BASOPHILS % (AUTO) 0 % (0-10); EOSINOPHILS % (AUTO) 1 % (0-10); HEMATOCRIT 24 % (35-52); HEMOGLOBIN 7.6 G/DL (11.5-16.0); LYMPHOCYTES # (AUTO) 0.8 X 10^3 (1.0-4.0); LYMPHOCYTES % (AUTO) 16 % (12-44); MEAN CORPUSCULAR HEMOGLOBIN 30 PG (25-34); MEAN CORPUSCULAR HGB CONC 32 G/DL (32-36); MEAN CORPUSCULAR VOLUME 94 FL (80-99); MEAN PLATELET VOLUME 9.8 FL (7.4-10.4); MONOCYTES # (AUTO) 0.9 X 10^3 (0.0-1.0); MONOCYTES % (AUTO) 18 % (0-12); NEUTROPHILS # (AUTO) 3.2 X 10^3 (1.8-7.8); NEUTROPHILS % (AUTO) 66 % (42-75); PLATELET COUNT 178 10^3/uL (130-400); RED BLOOD COUNT 2.54 10^6/uL (4.35-5.85); RED CELL DISTRIBUTION WIDTH 19.7 % (10.0-14.5); WHITE BLOOD COUNT 4.9 10^3/uL (4.3-11.0)
--- NOTE | 2018-01-23 11:09 | ED General ---
General Chief Complaint: General Problems/Pain Stated Complaint: "DOESN'T FEEL RIGHT" Nursing Triage Note: TO ED PER EMS FROM [facility]. STAFF REPORTS PATIENT NOT FEELING WELL ON EMS ARRIVAL IN CUSTODIAL BLOOD SUGAR 42 ORAL GLUCOSE GIVEN. ON ADMIT TO ED SLOW TO RESPOND BUT WILL ANSWER QUESTIONS. GLUCOSE RECHECKED REMIANS 42 D50 GIVEN IV AT 103. HAS DIALYSIS YESTERDAY. Nursing Sepsis Screen: No Definite Risk Source of Information: Patient, EMS, Family History of Present Illness Date Seen by Provider: Jan 23, 2018 Time Seen by Provider: 10:53 Initial Comments Here with report of not feeling well from the custodial. Apparently had low blood sugar. Was given oral glucose by EMS. This did not change her demeanor much. Arrives with blood sugar still 42. Report of fever today. 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 She has been seen at [facility] in [place], [place] as well as [facility]. She had several day visit at [facility] and then 10 day visit at . The visit was most recently. She did have dialysis yesterday and was told that her blood counts were low. This sometimes causes confusion with her. Did arrive with a temperature of 99.2. Family member reports that it was over 100 earlier. Timing/Duration: 1-2 Days Severity: Moderate Associated Systoms: No Chest Pain, No Cough; Fever/Chills; No Nausea/Vomiting, No Shortness of Air; Weakness Allergies and Home Medications Allergies Coded Allergies: lisinopril (Verified Allergy, Unknown, 12/28/17) Patient Home Medication List Home Medication List Reviewed: Yes Review of Systems Review of Systems Constitutional: see HPI; No chills; fever, weakness EENTM: no symptoms reported Respiratory: no symptoms reported Cardiovascular: no symptoms reported Gastrointestinal: No nausea, No vomiting Genitourinary: no symptoms reported Musculoskeletal: no symptoms reported Skin: see HPI, other (large pannus lesion covered by dressing) Psychiatric/Neurological: See HPI; Denies Headache; Weakness All Other Systems Reviewed Negative Unless Noted: Yes Past Zfboynu-Thvnkp-Mcafcl Hx Past Med/Social Hx: Reviewed Nursing Past Med/Soc Hx Patient Social History Alcohol Use: Denies Use Recreational Drug Use: No Smoking Status: Unknown if Ever Smoked 2nd Hand Smoke Exposure: No Recent Foreign Travel: No Contact w/Someone Who Travel: No Recent Infectious Disease Expo: No Recent Hopitalizations: No Immunizations Up To Date Tetanus Booster (TDap): Unknown PED Vaccines UTD: Yes Seasonal Allergies Seasonal Allergies: No Past Medical History Surgeries: Yes (fistula left upper extremity) Abdominal Respiratory: No Cardiac: Yes (chronic hypoxia) High Cholesterol, Hypertension Neurological: No 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: No Genitourinary: Yes Renal Failure, Dialysis Gastrointestinal: No Gastroesophageal Reflux Musculoskeletal: No Endocrine: Yes Diabetes, Insulin dep HEENT: No Cancer: No Psychosocial: No Integumentary: Yes (chronic wound of the abdomen) Recent Skin Changes Blood Disorders: Yes (anemia) Family Medical History Reviewed Nursing Family Hx No Pertinent Family Hx Physical Exam Vital Signs Vital Signs - First Documented 01/23/18 10:18 Temp 99.2 Pulse 86 Resp 18 B/P (MAP) 145/64 (91) Pulse Ox 100 O2 Delivery Nasal Cannula Capillary Refill : Less Than 3 Seconds Height, Weight, BMI Height: 5'6.00" Weight: 150lbs. oz. 68.107009te; BMI Method:Stated General Appearance: No Apparent Distress, Chronically ill HEENT: PERRL/EOMI, Pharynx Normal Neck: Non Tender, Supple Respiratory: Lungs Clear, Normal Breath Sounds Cardiovascular: Regular Rate, Rhythm, No Murmur Gastrointestinal: Soft, Tenderness (mild above pannus wounds but reports less than previous) Back: Normal Inspection, No CVA Tenderness, No Vertebral Tenderness Extremity: Normal Range of Motion, Non Tender Neurologic/Psychiatric: Alert, Oriented x3, Motor Weakness (global) Skin: Warm/Dry, Erythema (above pannus wound mild and less than on previous visit) Focused Exam Lactate Level 01/23/18 10:25: Lactic Acid Level 0.83 Lactic Acid Level Laboratory Tests Test 01/23/18 10:25 Lactic Acid Level 0.83 MMOL/L (0.50-2.00) Progress/Results/Core Measures Suspected Sepsis Recent Fever Within 48 Hours: Yes Infection Criteria Present: Suspected New Infection New/Unexplained Altered Menta: No Sepsis Screen: No Definite Risk SIRS Temperature:99.2 Pulse: 86 Respiratory Rate: 18 Laboratory Tests 01/23/18 10:25: White Blood Count 4.9 Blood Pressure 145 /64 Mean: 91 01/23/18 10:25: Lactic Acid Level 0.83 Laboratory Tests 01/23/18 10:25: Creatinine 5.05H, Platelet Count 178, Total Bilirubin 0.3 01/23/18 11:07: INR Comment 1.4 Results/Orders Lab Results Laboratory Tests Test 01/23/18 10:25 01/23/18 10:28 01/23/18 11:07 Range/Units White Blood Count 4.9 4.3-11.0 10^3/uL Red Blood Count 2.54 L 4.35-5.85 10^6/uL Hemoglobin 7.6 L 11.5-16.0 G/DL Hematocrit 24 L 35-52 % Mean Corpuscular Volume 94 80-99 FL Mean Corpuscular Hemoglobin 30 25-34 PG Mean Corpuscular Hemoglobin Concent 32 32-36 G/DL Red Cell Distribution Width 19.7 H 10.0-14.5 % Platelet Count 178 130-400 10^3/uL Mean Platelet Volume 9.8 7.4-10.4 FL Neutrophils (%) (Auto) 66 42-75 % Lymphocytes (%) (Auto) 16 12-44 % Monocytes (%) (Auto) 18 H 0-12 % Eosinophils (%) (Auto) 1 0-10 % Basophils (%) (Auto) 0 0-10 % Neutrophils # (Auto) 3.2 1.8-7.8 X 10^3 Lymphocytes # (Auto) 0.8 L 1.0-4.0 X 10^3 Monocytes # (Auto) 0.9 0.0-1.0 X 10^3 Eosinophils # (Auto) 0.0 0.0-0.3 10^3/uL Basophils # (Auto) 0.0 0.0-0.1 10^3/uL Sodium Level 136 135-145 MMOL/L Potassium Level 4.9 3.6-5.0 MMOL/L Chloride Level 100 98-107 MMOL/L Carbon Dioxide Level 19 L 21-32 MMOL/L Anion Gap 17 H 5-14 MMOL/L Blood Urea Nitrogen 51 H 7-18 MG/DL Creatinine 5.05 H 0.60-1.30 MG/DL Estimat Glomerular Filtration Rate 9 BUN/Creatinine Ratio 10 Glucose Level 39 *L 70-105 MG/DL Lactic Acid Level 0.83 0.50-2.00 MMOL/L Calcium Level 9.5 8.5-10.1 MG/DL Corrected Calcium 10.5 H 8.5-10.1 MG/DL Total Bilirubin 0.3 0.1-1.0 MG/DL Aspartate Amino Transf (AST/SGOT) 16 5-34 U/L Alanine Aminotransferase (ALT/SGPT) 13 0-55 U/L Alkaline Phosphatase 251 H 40-136 U/L Total Protein 6.7 6.4-8.2 GM/DL Albumin 2.8 L 3.2-4.5 GM/DL Glucometer 47 *L 70-110 MG/DL Prothrombin Time 16.8 H 12.2-14.7 SEC INR Comment 1.4 0.8-1.4 Activated Partial Thromboplast Time 40 H 24-35 SEC Micro Results Microbiology 01/23/18 Influenza Types A,B Antigen (WOLF) - Final, Complete My Orders Orders - FAIZAN MUIR MD D50w (Emergency) Syringe (Dextrose 50% 5 (01/23/18 10:29) Cbc With Automated Diff (01/23/18 10:40) Comprehensive Metabolic Panel (01/23/18 10:40) Blood Culture (01/23/18 10:40) Sputum Culture (01/23/18 10:40) Urinalysis (01/23/18 10:40) Urine Culture (01/23/18 10:40) Protime With Inr (01/23/18 10:40) Partial Thromboplastin Time (01/23/18 10:40) Chest 1 View, Ap/Pa Only (01/23/18 10:40) Saline Lock/Iv-Start (01/23/18 10:40) Vital Signs Adult Sepsis Patie Q15M (01/23/18 10:40) O2 (01/23/18 10:40) Remove Rings In Anticipation O (01/23/18 10:40) Lactic Acid Analyzer (01/23/18 10:40) Influenza A And B Antigens (01/23/18 10:40) General/Regular (01/23/18 Lunch) Piperacillin Sodium/Tazobactam (Zosyn Vi (01/23/18 12:45) Medications Given in ED Current Medications Medications Dose Ordered Sig/Jorge A Route Start Time Stop Time Status Last Admin Dose Admin Dextrose 50 ml STK-MED ONCE .ROUTE 01/23/18 10:29 01/23/18 10:30 DC 01/23/18 10:30 50 ML Vital Signs/I&O 01/23/18 10:18 Temp 99.2 Pulse 86 Resp 18 B/P (MAP) 145/64 (91) Pulse Ox 100 O2 Delivery Nasal Cannula Capillary Refill : Less Than 3 Seconds Blood Pressure Mean: 91 Progress Note : Progress Note Seen and evaluated. IV, labs, UA, chest x-ray, blood cultures and lactic acid ordered. D50 1 amp IV ordered for low blood sugar. Monitor patient. Doing better afterwards. Monitor patient. 1245: Patient noted to have right lower lobe pneumonia. Zosyn 4.5 g IV ordered. Initiated contact with [facility] in [facility] as patient will need admission but needs dialysis center. While in 250: I did speak with Dr. Pulido, on-call for hospitalist and reviewed the case. He accepted patient for transfer with Dr. Flood accepting. Patient will go by EMS. I did discuss this with the patient and family and they are in full agreement with transfer. Diagnostic Imaging Diagonstic Imaging: Xray Plain Films/CT/US/NM/MRI: chest Comments VIA [facility], [facility]. [place], [place] NAME: LUKE DANGELO [facility] REC#: [id number] PT STATUS: REG ER : 1960 PHYSICIAN: FAIZAN MUIR MD ADMIT DATE: 01/23/18/ER Draft Date of Exam:01/23/18 CHEST 1 VIEW, AP/PA ONLY INDICATION: Hypoglycemia. COMPARISON: 12/28/2017. FINDINGS: There is cardiomegaly and some venous congestion. There is a right basilar infiltrate. There is no pleural effusion or pneumothorax. The mediastinum is unremarkable. IMPRESSION: Right basilar infiltrate, suspect for pneumonia. Cardiomegaly and mild central pulmonary venous congestion. Dictated on workstation # [id number] Dict: 01/23/18 1115 Trans: 01/23/18 1119 [id number] Interpreted by: MOSHE ARECHIGA MD Electronically signed by: Departure Impression Primary Impression: Right lower lobe pneumonia Qualified Codes: J18.1 - Lobar pneumonia, unspecified organism Additional Impressions: End stage renal disease on dialysis Calciphylaxis Disposition: 02 XFER SHT-TRM HOSP Condition: Stable Transfer Time Spoke to Accepting Phy: 12:50 Transfer Time: 12:50 Transfer Facility: [place], [place], Dr. Flood accepting Method of Transfer: EMS Departure-Patient Inst. Referrals: KELLI PRAJAPATI MD (PCP/Family) Primary Care Physician FAIZAN MUIR MD Jan 23, 2018 11:09
[2018-01-23 11:16] LABS: ALBUMIN 2.8 GM/DL (3.2-4.5); BILIRUBIN,TOTAL 0.3 MG/DL (0.1-1.0); CALCIUM 9.5 MG/DL (8.5-10.1); CREATININE SERUM 5.05 MG/DL (0.60-1.30); POTASSIUM 4.9 MMOL/L (3.6-5.0); TOTAL PROTEIN 6.7 GM/DL (6.4-8.2)
--- NOTE | 2018-01-23 11:19 | Diagnostic Imaging Report ---
INDICATION: Hypoglycemia. COMPARISON: 12/28/2017. FINDINGS: There is cardiomegaly and some venous congestion. There is a right basilar infiltrate. There is no pleural effusion or pneumothorax. The mediastinum is unremarkable. IMPRESSION: Right basilar infiltrate, suspect for pneumonia. Cardiomegaly and mild central pulmonary venous congestion. Dictated by: Dictated on workstation # [id number]
[2018-01-23 11:30] LABS: INR 1.4 (0.8-1.4); PROTHROMBIN TIME PATIENT 16.8 SEC (12.2-14.7)
[2018-01-23] MEDS ORDERED: PIPERACILLIN SODIUM/TAZOBACTAM 4.5 GM in NS (IVPB) 100 ML IV ONE (12:45)
[2018-01-23 13:30] VITALS: BP 130/48
== END 2018-01-23 13:54 | disposition short-term general hospital (02) ==
LOC: EDUNIT# 10:18 → ER 10:19
DX: J18.1 Lobar pneumonia, unspecified organism (principal); E11.22 Type 2 diabetes mellitus with diabetic chronic kidney disease; I12.0 Hypertensive chronic kidney disease with stage 5 chronic kidney disease or end stage renal disease; N18.6 End stage renal disease; E83.59 Other disorders of calcium metabolism; E78.00 Pure hypercholesterolemia, unspecified; K21.9 Gastro-esophageal reflux disease without esophagitis; D64.9 Anemia, unspecified; Z99.2 Dependence on renal dialysis; Z88.8 Allergy status to other drugs, medicaments and biological substances; Z98.890 Other specified postprocedural states
CPT/HCPCS: 36415; 71045; 80053; 82962; 83605; 85025; 85610; 85730; 87040; 87804; 96365; 96375

== ENCOUNTER 2018-01-29 20:04 | Emergency (ER) | payer MEDICARE ==
[~2018-01-29] VITALS: Ht 167.6 cm; Wt 68.0 kg
[2018-01-29 20:21] LABS: BASOPHILS % (AUTO) 0 % (0-10); EOSINOPHILS % (AUTO) 0 % (0-10); HEMATOCRIT 21 % (35-52); LYMPHOCYTES # (AUTO) 0.5 X 10^3 (1.0-4.0); LYMPHOCYTES % (AUTO) 12 % (12-44); MEAN CORPUSCULAR HGB CONC 32 G/DL (32-36); MEAN CORPUSCULAR VOLUME 96 FL (80-99); MEAN PLATELET VOLUME 9.5 FL (7.4-10.4); MONOCYTES # (AUTO) 0.6 X 10^3 (0.0-1.0); MONOCYTES % (AUTO) 14 % (0-12); NEUTROPHILS % (AUTO) 74 % (42-75); PLATELET COUNT 135 10^3/uL (130-400); RED CELL DISTRIBUTION WIDTH 19.6 % (10.0-14.5)
[2018-01-29 20:23] LABS: HEMOGLOBIN 6.7 G/DL (11.5-16.0); MEAN CORPUSCULAR HEMOGLOBIN 30 PG (25-34)
[2018-01-29 20:35] LABS: INR 1.3 (0.8-1.4); PROTHROMBIN TIME PATIENT 16.6 SEC (12.2-14.7)
--- NOTE | 2018-01-29 20:35 | ED General ---
General Chief Complaint: Fever-Adult/Adol Stated Complaint: FEVER/AMS Nursing Triage Note: fever/ams after hd today. Nursing Sepsis Screen: No Definite Risk Source of Information: Patient (LIMITED HISTORIAN), Long-Term Records, Old Records History of Present Illness Date Seen by Provider: Jan 29, 2018 Time Seen by Provider: 20:07 Initial Comments PT ARRIVES VIA EMS FROM [facility] PT HAS ESRD ON DIALYSIS PT WAS NOTED TO HAVE FEVER OF 101.7 A SHORT WHILE AGO, ON RETURNING FROM DIALYSIS [facility] STAFF IMMEDIATELY CALLED EMS AND THEN GAVE TYLENOL [facility] REPORTED INITIAL BP OF 79/42 WITH REPEAT BP OF 117/52 BLOOD GLUCOSE 182 [facility] REPORTED "ALTERED MENTAL STATUS" --NORMALLY IS ALERT, ORIENTED. 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--HAS BEEN RECENTLY TREATED WITH VANCOMYCIN AND ZOSYN VIA PICC LINE, RECENTLY MID DECEMBER, BUT PT NO LONGER HAS PICC LINE AND IS NOT CURRENTLY ON ANY ANTIBIOTICS AT THIS TIME PT STATES SHE DOES NOT KNOW IF SHE HAS HAD A COUGH, OR IF SHE IS SHORT OF BREATH , OR IF SHE HAS CHEST PAIN OR IF SHE HAS HAD NAUSEA/VOMITING PT DOES REPORT THAT SHE DOES NOT MAKE URINE PT HAS HAD 4 VISITS HERE SINCE 12/28, LAST VISIT 01/23 AND PT HAD PNEUMONIA AT THAT TIME PT HAS HAD RECENT ADMITS TO [facility] A 10 DAY STAY AT , ALL IN THE LAST MONTH, ACCORDING TO OLD RECORDS IT IS ALSO NOTED IN OLD CHART THAT FAMILY MEMBER HAD REPORTED THAT PT OFTEN GETS CONFUSED/HAS ALTERED MENTAL STATUS WHEN HER HGB GETS LOW AND AFTER DIALYSIS --PT HAS CHRONIC ANEMIA PCP: DR. PRAJAPATI Allergies and Home Medications Allergies Coded Allergies: lisinopril (Verified Allergy, Unknown, 12/28/17) Home Medications Amlodipine Besylate 10 Mg Tablet, 10 MG PO DAILY, (Reported) Carvedilol 25 Mg Tab, 25 MG PO BID, (Reported) Clonidine HCl 0.1 Mg Tablet, 0.1 MG PO TID, (Reported) Insulin NPH Human Isophane 100 Unit/1 Ml Vial, 5 UNIT SQ HS, (Reported) Losartan Potassium 25 Mg Tablet, 12.5 MG PO DAILY, (Reported) Pantoprazole Sodium 40 Mg Tablet.dr, 40 MG PO DAILY, (Reported) Sevelamer Carbonate 800 Mg Tablet, 1,600 MG PO AC, (Reported) Patient Home Medication List Home Medication List Reviewed: Yes Review of Systems Review of Systems Constitutional: see HPI, fever, other (UNABLE TO GIVE ANY RELEVANT INFORMATION) Gastrointestinal: see HPI Skin: see HPI Psychiatric/Neurological: See HPI Past Yxspssr-Eehfhv-Qhcoxm Hx Patient Social History Alcohol Use: Denies Use Recreational Drug Use: No Smoking Status: Former Smoker Type Used: Cigarettes 2nd Hand Smoke Exposure: No Recent Foreign Travel: No Contact w/Someone Who Travel: No Recent Infectious Disease Expo: No Recent Hopitalizations: No Immunizations Up To Date Tetanus Booster (TDap): Unknown PED Vaccines UTD: Yes Seasonal Allergies Seasonal Allergies: No Past Medical History Surgeries: Yes (fistula left upper extremity; ABDOMINAL WALL WOUND) Abdominal, Dialysis, Vascular Surgery Respiratory: Yes (CHRONIC HYPOXIA) Cardiac: Yes (CALCIPHYLAXIS; CHF) Chronic Edema/Swelling, High Cholesterol, Hypertension Neurological: Yes (PERIPHERAL NEUROPATHY) Neuropathy : No 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: No 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 Genitourinary: Yes Renal Failure, Dialysis Gastrointestinal: Yes (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; ) Gastroesophageal Reflux Musculoskeletal: No Endocrine: Yes (CALCIPHYLAXIS) Diabetes, Insulin dep HEENT: No Cancer: No Psychosocial: No Integumentary: Yes (LARGE, OPEN NECROTIC 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 oz. 68.140241oj; BMI Method:Stated General Appearance: No Apparent Distress, Other (CHRONICALLY ILL APPEARING) HEENT: PERRL/EOMI, Other (ORAL MUCOSA DRY) Respiratory: No Accessory Muscle Use, No Respiratory Distress, Decreased Breath Sounds (IN BASES) Cardiovascular: Regular Rate, Rhythm, Systolic Murmur (1-2/6) Gastrointestinal: Tenderness (MILD TENDERNESS AROUND WOUND SITE), Other (LARGE DRDESSING IN PLACE OVER ENTIRE LOWER ABDOMEN--DRESSING IS CLEAN/DRY/INTACT. NO EVIDENCE OF CELLULITIS BEYOND EDGES OF DRESSING. ) Extremity: Pedal Edema (TRACE TO 1+ EDEMA. 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 ) Neurologic/Psychiatric: Alert, Sensory Deficit (PERIPHERAL NEUROPATHY, ), Other (KNOWS SHE IS HERE FOR FEVER, KNOWS HOSPITAL NAME BUT NOT TOWN, KNOWS MONTH BUT NOT DAY OF WEEK/DATE OR YEAR. CAN GIVE SOME INFORMATION ABOUT RECENT HEALTH ISSUES. BUT IS GENERALLY A POOR HISTORIAN. SLIGHTLY LETHARGIC. ) Skin: Warm/Dry, Ecchymosis (MULTIPLE BRUISES. ), Pallor Focused Exam Lactate Level 01/29/18 20:10: Lactic Acid Level 0.94 Lactic Acid Level Laboratory Tests Test 01/29/18 20:10 Lactic Acid Level 0.94 MMOL/L (0.50-2.00) Progress/Results/Core Measures Suspected Sepsis Recent Fever Within 48 Hours: Yes Infection Criteria Present: Documented Infection New/Unexplained Altered Menta: No Sepsis Screen: No Definite Risk SIRS Temperature:97.7 Pulse: 90 Respiratory Rate: 13 Laboratory Tests 01/29/18 20:10: White Blood Count 4.0L Blood Pressure 164 /59 Mean: 94 01/29/18 20:10: Lactic Acid Level 0.94 Laboratory Tests 01/29/18 20:10: Creatinine 4.05#H, INR Comment 1.3, Platelet Count 135, Total Bilirubin 0.4 Results/Orders Lab Results Laboratory Tests Test 01/29/18 20:10 Range/Units White Blood Count 4.0 L 4.3-11.0 10^3/uL Red Blood Count 2.20 L 4.35-5.85 10^6/uL Hemoglobin 6.7 *L 11.5-16.0 G/DL Hematocrit 21 L 35-52 % Mean Corpuscular Volume 96 80-99 FL Mean Corpuscular Hemoglobin 30 25-34 PG Mean Corpuscular Hemoglobin Concent 32 32-36 G/DL Red Cell Distribution Width 19.6 H 10.0-14.5 % Platelet Count 135 130-400 10^3/uL Mean Platelet Volume 9.5 7.4-10.4 FL Neutrophils (%) (Auto) 74 42-75 % Lymphocytes (%) (Auto) 12 12-44 % Monocytes (%) (Auto) 14 H 0-12 % Eosinophils (%) (Auto) 0 0-10 % Basophils (%) (Auto) 0 0-10 % Neutrophils # (Auto) 3.0 1.8-7.8 X 10^3 Lymphocytes # (Auto) 0.5 L 1.0-4.0 X 10^3 Monocytes # (Auto) 0.6 0.0-1.0 X 10^3 Eosinophils # (Auto) 0.0 0.0-0.3 10^3/uL Basophils # (Auto) 0.0 0.0-0.1 10^3/uL Prothrombin Time 16.6 H 12.2-14.7 SEC INR Comment 1.3 0.8-1.4 Activated Partial Thromboplast Time 40 H 24-35 SEC Sodium Level 137 135-145 MMOL/L Potassium Level 4.5 3.6-5.0 MMOL/L Chloride Level 98 98-107 MMOL/L Carbon Dioxide Level 23 21-32 MMOL/L Anion Gap 16 H 5-14 MMOL/L Blood Urea Nitrogen 30 H 7-18 MG/DL Creatinine 4.05 #H 0.60-1.30 MG/DL Estimat Glomerular Filtration Rate 11 BUN/Creatinine Ratio 7 Glucose Level 153 H 70-105 MG/DL Lactic Acid Level 0.94 0.50-2.00 MMOL/L Calcium Level 9.2 8.5-10.1 MG/DL Corrected Calcium 10.0 8.5-10.1 MG/DL Total Bilirubin 0.4 0.1-1.0 MG/DL Aspartate Amino Transf (AST/SGOT) 15 5-34 U/L Alanine Aminotransferase (ALT/SGPT) 12 0-55 U/L Alkaline Phosphatase 314 H 40-136 U/L Total Protein 7.1 6.4-8.2 GM/DL Albumin 3.0 L 3.2-4.5 GM/DL Micro Results Microbiology 01/29/18 Influenza Types A,B Antigen (WOLF) - Final, Complete My Orders Orders - TAL LOMAX DO Saline Lock/Iv-Start (01/29/18 20:07) Ekg Tracing (01/29/18 20:07) O2 (01/29/18 20:07) Monitor-Rhythm Ecg Trace Only (01/29/18 20:07) Cbc With Automated Diff (01/29/18 20:07) Comprehensive Metabolic Panel (01/29/18 20:07) Lactic Acid Analyzer (01/29/18 20:07) Protime With Inr (01/29/18 20:07) Partial Thromboplastin Time (01/29/18 20:07) Blood Culture (01/29/18 20:07) Influenza A And B Antigens (01/29/18 20:07) Chest 1 View, Ap/Pa Only (01/29/18 20:07) Piperacillin Sodium/Tazobactam (Zosyn Vi (01/29/18 21:00) Piperacillin Sodium/Tazobactam (Zosyn Vi (01/29/18 20:59) Ns (Ivpb) (Sodium Chloride 0.9% Ivpb Bag (01/29/18 21:00) Medications Given in ED Current Medications Medications Dose Ordered Sig/Jorge A Route Start Time Stop Time Status Last Admin Dose Admin Piperacillin Sod/ Tazobactam Sod 4.5 gm/Sodium Chloride 100 ml @ 200 mls/hr ONCE ONCE IV 01/29/18 21:00 01/29/18 21:29 DC 01/29/18 21:02 200 MLS/HR Vital Signs/I&O 01/29/18 01/29/18 01/29/18 20:05 20:05 21:54 Temp 97.7 99.0 Pulse 90 86 Resp 13 16 B/P (MAP) 164/59 (94) 157/35 (75) Pulse Ox 97 97 98 O2 Delivery Nasal Cannula Nasal Cannula Nasal Cannula O2 Flow Rate 2.00 2.00 2.00 Capillary Refill : Less Than 3 Seconds Blood Pressure Mean: 94 Progress Note : Progress Note UNEVENTFUL ER STAY PT HAD NO COMPLAINTS AND RESTED FOR MOST OF ER STAY VITALS STABLE ECG Initial ECG Impression Date: Jan 29, 2018 Initial ECG Impression Time: 20:12 Initial ECG Rate: 88 Initial ECG Rhythm: Normal Sinus Initial ECG Impression: Nonspecific Changes, 1st Degree AV Block Diagnostic Imaging Comments CXR--CHF WITH INTERVAL INCREASE IN FLUID, ESPECIALLY ON RIGHT PER RADIOLOGIST REPORT @ 2047 Reviewed: Reviewed by Me Departure Communication (Admissions) 2056--CALLED [facility]. BHAVESH FERRARA, HOSPITALIST. 2100--SPOKE WITH DR. FERRARA, ACCEPTS PT FOR ADMIT Impression Primary Impression: Febrile illness Additional Impressions: RIGHT PLEURAL EFFUSION VS INFILTRATE ESRD (end stage renal disease) on dialysis CHRONIC ABDOMINAL WOUND Calciphylaxis Severe anemia Altered mental status Disposition: XFER SHT-TRM HOSP Condition: Stable Departure-Patient Inst. Referrals: KELLI PRAJAPATI MD (PCP/Family) Primary Care Physician TAL LOMAX DO Jan 29, 2018 20:35
--- NOTE | 2018-01-29 20:38 | Diagnostic Imaging Report ---
INDICATION: Fever and renal insufficiency. Portable upright AP view of the chest is obtained with comparison made study of 01/23/2018. FINDINGS: Cardiomegaly and pulmonary venous congestion persists. There is mild increase in blunting of the costophrenic sulci, greater on the right. No consolidation is seen. IMPRESSION: Findings remain compatible with mild congestive heart failure with interval increase in pleural fluid, greater on the right. Dictated by: Dictated on workstation # [id number]
[2018-01-29] MEDS ORDERED: [UNRECOGNIZED DRUG - CODE] PO (20:40)
[2018-01-29] MEDS ORDERED: ASCO500C17 PO (20:40)
[2018-01-29] MEDS ORDERED: VITA1CAP PO (20:40)
[2018-01-29] MEDS ORDERED: SIMV10TA3 PO (20:40)
[2018-01-29] MEDS ORDERED: INSN1U SQ (20:40)
[2018-01-29] MEDS ORDERED: LOSA25TA6 PO (20:40)
[2018-01-29] MEDS ORDERED: CLON0.1T PO (20:40)
[2018-01-29] MEDS ORDERED: ASPI-808 PO (20:40)
[2018-01-29] MEDS ORDERED: INSU100I23 SQ (20:40)
[2018-01-29] MEDS ORDERED: AMLO10TA6 PO (20:40)
[2018-01-29] MEDS ORDERED: CRV25T PO (20:40)
[2018-01-29] MEDS ORDERED: GABA-488 PO (20:40)
[2018-01-29] MEDS ORDERED: FOLI1TAB24 PO (20:40)
[2018-01-29] MEDS ORDERED: TIZA4CAP8 PO (20:40)
[2018-01-29] MEDS ORDERED: CALC-250 PO (20:40)
[2018-01-29] MEDS ORDERED: ACID1TAB5 PO (20:40)
[2018-01-29] MEDS ORDERED: SEVE800T13 PO (20:40)
[2018-01-29] MEDS ORDERED: PANT40TA2 PO (20:40)
[2018-01-29] MEDS ORDERED: ASPI-586 PO (20:40)
[2018-01-29 20:43] LABS: BILIRUBIN,TOTAL 0.4 MG/DL (0.1-1.0); CALCIUM 9.2 MG/DL (8.5-10.1); CREATININE SERUM 4.05 MG/DL (0.60-1.30); POTASSIUM 4.5 MMOL/L (3.6-5.0); TOTAL PROTEIN 7.1 GM/DL (6.4-8.2)
[2018-01-29] MEDS ORDERED: PIPERACILLIN/TAZO 4.5 GM VIAL (ZOSYN) IV ONE (20:59)
[2018-01-29] MEDS ORDERED: NS (IVPB) 100 ML ONE (21:00)
[2018-01-29] MEDS ORDERED: PIPERACILLIN SODIUM/TAZOBACTAM 4.5 GM in NS (IVPB) 100 ML IV ONE (21:00)
[2018-01-29 21:54] VITALS: BP 157/35
== END 2018-01-29 21:54 | disposition short-term general hospital (02) ==
LOC: EDUNIT# 20:04 → ER 20:05
DX: I12.0 Hypertensive chronic kidney disease with stage 5 chronic kidney disease or end stage renal disease (principal); E11.22 Type 2 diabetes mellitus with diabetic chronic kidney disease; N18.6 End stage renal disease; E83.59 Other disorders of calcium metabolism; D64.9 Anemia, unspecified; R41.82 Altered mental status, unspecified; R50.9 Fever, unspecified; E78.00 Pure hypercholesterolemia, unspecified; E11.42 Type 2 diabetes mellitus with diabetic polyneuropathy; K21.9 Gastro-esophageal reflux disease without esophagitis; Z99.2 Dependence on renal dialysis; Z88.8 Allergy status to other drugs, medicaments and biological substances; Z79.4 Long term (current) use of insulin; Z87.891 Personal history of nicotine dependence
CPT/HCPCS: 36415; 71045; 80053; 83605; 85025; 85610; 85730; 87040; 87804; 93005; 93041; 96365

== ENCOUNTER 2018-02-21 07:46 | Outpatient (RCR) | payer MEDICARE ==
[~2018-02-21] VITALS: Ht 167.6 cm; Wt 68.0 kg
[2018-02-21 07:40] VITALS: BP 149/47
[~2018-02-21 07:46] MED LIST: ACID1TAB5 PO; AMLO10TA6 PO; ASCO500C17 PO; ASPI-586 PO; ASPI-808 PO; CALC-250 PO; CLON0.1T PO; CRV25T PO; FOLI1TAB24 PO; GABA-488 PO; INSN1U SQ; INSU100I23 SQ; LOSA25TA6 PO; PANT40TA2 PO; SEVE800T13 PO; SIMV10TA3 PO; TIZA4CAP8 PO; VITA1CAP PO; [UNRECOGNIZED DRUG - CODE] PO
[2018-02-21] MEDS ORDERED: NS IV 500 ML 500 ML IV ONE (09:15)
[2018-02-21 09:42] VITALS: BP 133/51
[2018-02-21 09:45] VITALS: BP 133/51
[2018-02-21 10:00] VITALS: BP 132/55
[2018-02-21 11:40] VITALS: BP 151/87
[2018-02-21 11:48] LABS: MEAN PLATELET VOLUME 9.4 FL (7.4-10.4); RED BLOOD COUNT 2.62 10^6/uL (4.35-5.85); RED CELL DISTRIBUTION WIDTH 16.5 % (10.0-14.5); WHITE BLOOD COUNT 6.1 10^3/uL (4.3-11.0)
== END 2018-02-21 12:15 | disposition home or self-care (01) ==
LOC: SDC 07:46
PROVIDERS: ATTEND Family Medicine
DX: D64.9 Anemia, unspecified (principal)
CPT/HCPCS: 36415; 36430; 85027; 86850; 86900; 86901; 86920

== ENCOUNTER 2018-02-23 23:53 | Emergency (ER) | payer MEDICARE ==
[~2018-02-23] VITALS: Ht 162.6 cm; Wt 68.0 kg
--- NOTE | 2018-02-24 00:17 | ED General ---
General Stated Complaint: BLOOD SUGAR 202, POSS FEVER Source of Information: Patient, EMS Exam Limitations: No Limitations History of Present Illness Date Seen by Provider: Feb 23, 2018 Time Seen by Provider: 23:55 Initial Comments Here by EMS from detention with report of altered mental status, high blood sugar and fever. EMS was called to the detention and found the patient to be alert and oriented 3, blood sugar 202 and temperature of 98.8. She did just have dialysis today. She does have a large wound that is related to calcipylaxis to the abdominal area. This is been evaluated and is currently undergoing wound care and she states it's actually doing better. Denies any complaints currently. Timing/Duration: 4-6 Hours Severity: Moderate Associated Systoms: No Chest Pain, No Nausea/Vomiting, No Shortness of Air, No Weakness Allergies and Home Medications Allergies Coded Allergies: lisinopril (Verified Allergy, Unknown, 12/28/17) Home Medications Amlodipine Besylate 10 Mg Tablet, 10 MG PO DAILY, (Reported) Carvedilol 25 Mg Tab, 25 MG PO BID, (Reported) Clonidine HCl 0.1 Mg Tablet, 0.1 MG PO TID, (Reported) Insulin NPH Human Isophane 100 Unit/1 Ml Vial, 5 UNIT SQ HS, (Reported) Losartan Potassium 25 Mg Tablet, 12.5 MG PO DAILY, (Reported) Pantoprazole Sodium 40 Mg Tablet.dr, 40 MG PO DAILY, (Reported) Sevelamer Carbonate 800 Mg Tablet, 1,600 MG PO AC, (Reported) Patient Home Medication List Home Medication List Reviewed: Yes Review of Systems Review of Systems Constitutional: see HPI; No weakness EENTM: No nose congestion, No throat pain Respiratory: No cough, No short of breath Cardiovascular: No chest pain, No edema Gastrointestinal: No abdominal pain, No nausea, No vomiting Genitourinary: No pain; other (patient does not urinate with dialysis) : No Musculoskeletal: No back pain; other (pain to the coccyx from chronic wound) Skin: change in color (all ecchymotic areas on bilateral upper extremities), other (chronic wound to the abdomen and coccyx) Psychiatric/Neurological: No Symptoms Reported; Denies Headache, Denies Weakness All Other Systems Reviewed Negative Unless Noted: Yes Past Xapexbw-Coclhz-Quqwqz Hx Past Med/Social Hx: Reviewed Nursing Past Med/Soc Hx Patient Social History Alcohol Use: Denies Use Recreational Drug Use: No Smoking Status: Current Everyday Smoker Type Used: Cigarettes 2nd Hand Smoke Exposure: No Recent Foreign Travel: No Contact w/Someone Who Travel: No Recent Hopitalizations: No Immunizations Up To Date Tetanus Booster (TDap): Unknown PED Vaccines UTD: Yes Seasonal Allergies Seasonal Allergies: No Past Medical History Surgeries: Yes (fistula left upper extremity; ABDOMINAL WALL WOUND) Abdominal, Dialysis, Vascular Surgery Respiratory: Yes (CHRONIC HYPOXIA) Cardiac: Yes (CALCIPHYLAXIS; CHF) Chronic Edema/Swelling, High Cholesterol, Hypertension Neurological: Yes (PERIPHERAL NEUROPATHY) Neuropathy 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: 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 Genitourinary: Yes Renal Failure, Dialysis Gastrointestinal: Yes (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; ) Gastroesophageal Reflux Musculoskeletal: No Endocrine: Yes (CALCIPHYLAXIS) Diabetes, Insulin dep HEENT: No Cancer: No Psychosocial: No Integumentary: Yes Recent Skin Changes Blood Disorders: Yes (CHRONIC ANEMIA) Family Medical History Reviewed Nursing Family Hx No Pertinent Family Hx Physical Exam Vital Signs Vital Signs - First Documented 02/23/18 23:53 Temp 99.1 Pulse 81 Resp 19 B/P (MAP) 127/49 (75) Pulse Ox 100 O2 Delivery Nasal Cannula O2 Flow Rate 2.00 Capillary Refill : Height, Weight, BMI Height: 5'6.00" Weight: 150lbs. 0.0oz. 68.820497xt; BMI Method:Stated General Appearance: No Apparent Distress, WD/WN HEENT: PERRL/EOMI, Pharynx Normal Neck: Non Tender, Supple Respiratory: Lungs Clear, Normal Breath Sounds Cardiovascular: Regular Rate, Rhythm, Systolic Murmur Gastrointestinal: Non Tender, Soft Back: Normal Inspection, No CVA Tenderness, No Vertebral Tenderness Neurologic/Psychiatric: Alert, Oriented x3 Skin: Warm/Dry, Ecchymosis (bilateral upper extremities), Other (large wound to the lower abdomen covered by wound VAC dressing.) Progress/Results/Core Measures Suspected Sepsis SIRS Temperature: Pulse: Respiratory Rate: Laboratory Tests 02/23/18 23:55: White Blood Count 6.9 Blood Pressure / Mean: Laboratory Tests 02/23/18 23:55: Creatinine 3.51H, Platelet Count 144, Total Bilirubin 0.4 Results/Orders Lab Results Laboratory Tests Test 02/23/18 23:55 Range/Units White Blood Count 6.9 4.3-11.0 10^3/uL Red Blood Count 2.52 L 4.35-5.85 10^6/uL Hemoglobin 7.5 L 11.5-16.0 G/DL Hematocrit 24 L 35-52 % Mean Corpuscular Volume 97 80-99 FL Mean Corpuscular Hemoglobin 30 25-34 PG Mean Corpuscular Hemoglobin Concent 31 L 32-36 G/DL Red Cell Distribution Width 16.4 H 10.0-14.5 % Platelet Count 144 130-400 10^3/uL Mean Platelet Volume 10.0 7.4-10.4 FL Neutrophils (%) (Auto) 74 42-75 % Lymphocytes (%) (Auto) 11 L 12-44 % Monocytes (%) (Auto) 14 H 0-12 % Eosinophils (%) (Auto) 0 0-10 % Basophils (%) (Auto) 0 0-10 % Neutrophils # (Auto) 5.1 1.8-7.8 X 10^3 Lymphocytes # (Auto) 0.8 L 1.0-4.0 X 10^3 Monocytes # (Auto) 1.0 0.0-1.0 X 10^3 Eosinophils # (Auto) 0.0 0.0-0.3 10^3/uL Basophils # (Auto) 0.0 0.0-0.1 10^3/uL Sodium Level 137 135-145 MMOL/L Potassium Level 4.1 3.6-5.0 MMOL/L Chloride Level 97 L 98-107 MMOL/L Carbon Dioxide Level 27 21-32 MMOL/L Anion Gap 13 5-14 MMOL/L Blood Urea Nitrogen 26 H 7-18 MG/DL Creatinine 3.51 H 0.60-1.30 MG/DL Estimat Glomerular Filtration Rate 13 BUN/Creatinine Ratio 7 Glucose Level 156 H 70-105 MG/DL Calcium Level 9.1 8.5-10.1 MG/DL Corrected Calcium 10.1 8.5-10.1 MG/DL Total Bilirubin 0.4 0.1-1.0 MG/DL Aspartate Amino Transf (AST/SGOT) 10 5-34 U/L Alanine Aminotransferase (ALT/SGPT) 7 0-55 U/L Alkaline Phosphatase 266 H 40-136 U/L C-Reactive Protein High Sensitivity 21.24 H 0.00-0.50 MG/DL Total Protein 6.9 6.4-8.2 GM/DL Albumin 2.7 L 3.2-4.5 GM/DL My Orders Orders - FAIZAN MUIR MD Cbc With Automated Diff (02/24/18 00:00) Comprehensive Metabolic Panel (02/24/18 00:00) Hs C Reactive Protein (02/24/18 00:00) Chest 1 View, Ap/Pa Only (02/24/18 00:00) Vital Signs/I&O 02/23/18 23:53 Temp 99.1 Pulse 81 Resp 19 B/P (MAP) 127/49 (75) Pulse Ox 100 O2 Delivery Nasal Cannula O2 Flow Rate 2.00 Capillary Refill : Progress Note : Progress Note Seen and evaluated. We will check basic labs and chest x-ray. Overall patient is mentating well and in no acute distress currently. Monitor patient. 0140: Chest x-ray does not reveal any new or acute findings. Labs are actually in good ranges for her. No elevation of white count and no indication of bacterial infection. Blood sugars are in good ranges. Discharged to detention with return precautions. Patient verbalize understanding instructions and agreement with plan. Diagnostic Imaging Diagonstic Imaging: Xray Plain Films/CT/US/NM/MRI: chest Comments No acute findings. Chronic cardiomegaly with very congestion but improved from previous. Departure Impression Primary Impression: End stage renal disease on dialysis Additional Impression: Diabetes mellitus Qualified Codes: E11.9 - Type 2 diabetes mellitus without complications; Z79.4 - long term care pharmacist (current) use of insulin Disposition: 01 HOME, SELF-CARE Condition: Improved Departure-Patient Inst. Decision time for Depature: 01:44 Referrals: KELLI PRAJAPATI MD (PCP/Family) Primary Care Physician Patient Instructions: Hyperglycemia, Adult (DC) Add. Discharge Instructions: Continue current medications as prescribed. Follow-up with your DrAnne in a few days for recheck. Return for worse pain, fever, vomiting, weakness, breathing problems or other concerns as needed. FAIZAN MUIR MD Feb 24, 2018 00:17
[2018-02-24 00:27] LABS: BASOPHILS % (AUTO) 0 % (0-10); EOSINOPHILS % (AUTO) 0 % (0-10); HEMATOCRIT 24 % (35-52); HEMOGLOBIN 7.5 G/DL (11.5-16.0); LYMPHOCYTES # (AUTO) 0.8 X 10^3 (1.0-4.0); LYMPHOCYTES % (AUTO) 11 % (12-44); MEAN CORPUSCULAR HEMOGLOBIN 30 PG (25-34); MEAN CORPUSCULAR HGB CONC 31 G/DL (32-36); MEAN CORPUSCULAR VOLUME 97 FL (80-99); MONOCYTES % (AUTO) 14 % (0-12); NEUTROPHILS # (AUTO) 5.1 X 10^3 (1.8-7.8); NEUTROPHILS % (AUTO) 74 % (42-75); PLATELET COUNT 144 10^3/uL (130-400); RED BLOOD COUNT 2.52 10^6/uL (4.35-5.85); RED CELL DISTRIBUTION WIDTH 16.4 % (10.0-14.5); WHITE BLOOD COUNT 6.9 10^3/uL (4.3-11.0)
[2018-02-24 00:48] LABS: ALBUMIN 2.7 GM/DL (3.2-4.5); BILIRUBIN,TOTAL 0.4 MG/DL (0.1-1.0); CALCIUM 9.1 MG/DL (8.5-10.1); CREATININE SERUM 3.51 MG/DL (0.60-1.30); POTASSIUM 4.1 MMOL/L (3.6-5.0); TOTAL PROTEIN 6.9 GM/DL (6.4-8.2)
[2018-02-24 02:05] VITALS: BP 157/74
--- NOTE | 2018-02-24 05:38 | Diagnostic Imaging Report ---
INDICATION: Hyperglycemia. Fever. COMPARISON: 01/29/2018. FINDINGS: Single frontal radiographic view of the chest was obtained and again demonstrates moderate cardiomegaly and mild prominence of pulmonary vasculature. Lungs continue to show small right basilar effusion with associated right basilar atelectasis. Overall, there has been no significant interval change and aeration. There is no large effusion on the left. No pneumothorax is identified on either side. IMPRESSION: 1. Stable exam of chest showing cardiomegaly with sequela of CHF including small right basilar effusion. Dictated by: Dictated on workstation # [id number]
== END 2018-02-24 02:40 | disposition home or self-care (01) ==
LOC: EDUNIT# 23:53 → ER 23:55
DX: E11.22 Type 2 diabetes mellitus with diabetic chronic kidney disease (principal); I13.0 Hypertensive heart and chronic kidney disease with heart failure and stage 1 through stage 4 chronic kidney disease, or unspecified chronic kidney disease; N18.6 End stage renal disease; I50.9 Heart failure, unspecified; E78.00 Pure hypercholesterolemia, unspecified; K21.9 Gastro-esophageal reflux disease without esophagitis; E11.40 Type 2 diabetes mellitus with diabetic neuropathy, unspecified; D64.9 Anemia, unspecified; F17.210 Nicotine dependence, cigarettes, uncomplicated; Z99.2 Dependence on renal dialysis; Z98.890 Other specified postprocedural states; Z88.8 Allergy status to other drugs, medicaments and biological substances; Z79.4 Long term (current) use of insulin
CPT/HCPCS: 36415; 71045; 80053; 85025; 86141

== ENCOUNTER 2018-03-04 09:00 | Emergency (ER) | payer MEDICARE ==
[~2018-03-04] VITALS: Ht 167.6 cm; Wt 68.0 kg
[2018-03-04 09:24] LABS: BASOPHILS % (AUTO) 0 % (0-10); EOSINOPHILS % (AUTO) 0 % (0-10); HEMATOCRIT 28 % (35-52); HEMOGLOBIN 8.5 G/DL (11.5-16.0); LYMPHOCYTES # (AUTO) 1.3 X 10^3 (1.0-4.0); LYMPHOCYTES % (AUTO) 12 % (12-44); MEAN CORPUSCULAR HEMOGLOBIN 30 PG (25-34); MEAN CORPUSCULAR HGB CONC 31 G/DL (32-36); MEAN CORPUSCULAR VOLUME 97 FL (80-99); MONOCYTES # (AUTO) 0.9 X 10^3 (0.0-1.0); MONOCYTES % (AUTO) 9 % (0-12); NEUTROPHILS # (AUTO) 8.5 X 10^3 (1.8-7.8); NEUTROPHILS % (AUTO) 79 % (42-75); PLATELET COUNT 184 10^3/uL (130-400); RED BLOOD COUNT 2.88 10^6/uL (4.35-5.85); RED CELL DISTRIBUTION WIDTH 16.7 % (10.0-14.5); WHITE BLOOD COUNT 10.7 10^3/uL (4.3-11.0)
[2018-03-04 09:35] LABS: INR 1.4 (0.8-1.4); PROTHROMBIN TIME PATIENT 16.9 SEC (12.2-14.7)
[2018-03-04 09:44] LABS: ALANINE AMINOTRANSFERASE < 6 U/L (0-55); ALBUMIN 2.4 GM/DL (3.2-4.5); ALKALINE PHOSPHATASE 215 U/L (40-136); BILIRUBIN,TOTAL 0.3 MG/DL (0.1-1.0); BUN/CREATININE RATIO 12; CALCIUM 9.2 MG/DL (8.5-10.1); CARBON DIOXIDE 22 MMOL/L (21-32); CHLORIDE 94 MMOL/L (98-107); CREATININE SERUM 4.92 MG/DL (0.60-1.30); GFR ESTIMATED 9; GLUCOSE 113 MG/DL (70-105); POTASSIUM 4.9 MMOL/L (3.6-5.0); SODIUM 131 MMOL/L (135-145); TOTAL PROTEIN 6.4 GM/DL (6.4-8.2)
--- NOTE | 2018-03-04 09:51 | Diagnostic Imaging Report ---
INDICATION: Shortness of air. TECHNIQUE: Single view chest 9:27 AM. CORRELATION STUDY: 02/24/2018 FINDINGS: Heart size is rather significantly enlarged but relatively stable. Vascularity slightly increased. Lung cronin generally stable. Previously noted small right pleural effusion appears diminished. IMPRESSION: 1. Findings of congestive failure stable to perhaps minimally improved. The previously noted right pleural effusion appears diminished. Dictated by: Dictated on workstation # [id number]
--- NOTE | 2018-03-04 10:17 | ED General ---
General Chief Complaint: Fever-Adult/Adol Stated Complaint: ALTERED MENTAL STATUS Nursing Triage Note: PT ARRIVED PER EMS[place], PT CO OF FEVER LOW GRADE AT [place] AND CONFUSION. PT HAS CHRONIC WOUND ON ABD THAT HAS ODOR NOTED, PT IS DIALYSIS PT. PT HAS SL IN L FA BY EMS. PT IS ALERT AT THIS X. DENIES PAIN, STATES HAS NOT FELT WELL FOR A FEW DAYS Nursing Sepsis Screen: No Definite Risk Source of Information: Patient Exam Limitations: No Limitations History of Present Illness Date Seen by Provider: Mar 04, 2018 Time Seen by Provider: 09:10 Initial Comments Here with concerns about fever and confusion today. She does have end-stage renal disease and is on dialysis on Monday, Monday and Monday. Last dialysis was Monday 2 days ago. Today he has the confusion which is worse than normal for her. She has multiple visits here and she does appear more confused today than typical. Wound has foul smell to it. She was previously on wound VAC but apparently had reaction to the tape and was getting leakage causing increasing wound. This was subsequently stopped and patient went back to wet-to -dry dressing. Wound smell started increasing over the last few days. She is tender to the area of the wound. Timing/Duration: 2-3 Days, Getting Worse Severity: Moderate Associated Systoms: No Chest Pain; Fever/Chills; No Nausea/Vomiting, No Shortness of Air; Weakness Allergies and Home Medications Allergies Coded Allergies: lisinopril (Verified Allergy, Unknown, 12/28/17) Home Medications Amlodipine Besylate 10 Mg Tablet, 10 MG PO DAILY, (Reported) Carvedilol 25 Mg Tab, 25 MG PO BID, (Reported) Clonidine HCl 0.1 Mg Tablet, 0.1 MG PO TID, (Reported) Insulin NPH Human Isophane 100 Unit/1 Ml Vial, 5 UNIT SQ HS, (Reported) Losartan Potassium 25 Mg Tablet, 12.5 MG PO DAILY, (Reported) Pantoprazole Sodium 40 Mg Tablet.dr, 40 MG PO DAILY, (Reported) Sevelamer Carbonate 800 Mg Tablet, 1,600 MG PO AC, (Reported) Patient Home Medication List Home Medication List Reviewed: Yes Review of Systems Review of Systems Constitutional: see HPI; No chills; fever EENTM: no symptoms reported Respiratory: No short of breath, No wheezing Cardiovascular: no symptoms reported Gastrointestinal: abdominal pain; No nausea, No vomiting Musculoskeletal: no symptoms reported Skin: see HPI, change in color, lesions Psychiatric/Neurological: See HPI; Denies Headache; Weakness Hematologic/Lymphatic: No Symptoms Reported All Other Systems Reviewed Negative Unless Noted: Yes Past Qejwcwf-Iagwbr-Wlkkne Hx Past Med/Social Hx: Reviewed Nursing Past Med/Soc Hx Patient Social History Alcohol Use: Denies Use Recreational Drug Use: No Smoking Status: Former Smoker Type Used: Cigarettes 2nd Hand Smoke Exposure: No Recent Foreign Travel: No Contact w/Someone Who Travel: No Recent Infectious Disease Expo: No Recent Hopitalizations: No Physical Abuse: No Sexual Abuse: No Immunizations Up To Date Tetanus Booster (TDap): Unknown PED Vaccines UTD: Yes Seasonal Allergies Seasonal Allergies: No Past Medical History Surgeries: Yes (fistula left upper extremity; ABDOMINAL WALL WOUND) Abdominal, Dialysis, Vascular Surgery Respiratory: Yes (CHRONIC HYPOXIA) Pneumonia Cardiac: Yes (CALCIPHYLAXIS; CHF) Chronic Edema/Swelling, High Cholesterol, Hypertension Neurological: Yes (PERIPHERAL NEUROPATHY) Neuropathy 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 Genitourinary: Yes Renal Failure, Dialysis Gastrointestinal: Yes (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; ) Gastroesophageal Reflux Musculoskeletal: No Endocrine: Yes (CALCIPHYLAXIS) Diabetes, Insulin dep HEENT: No Cancer: No Psychosocial: No Integumentary: Yes Recent Skin Changes Blood Disorders: Yes (CHRONIC ANEMIA) Family Medical History Reviewed Nursing Family Hx No Pertinent Family Hx Physical Exam-Suspected Sepsis Physical Exam Vital Signs Vital Signs - First Documented 03/04/18 09:03 Temp 97.6 Pulse 70 Resp 18 B/P (MAP) 136/42 (73) Pulse Ox 100 O2 Delivery Nasal Cannula O2 Flow Rate 2.00 Capillary Refill : Less Than 3 Seconds Blood Pressure Mean: 73 Height, Weight, BMI Height: 5'6.00" Weight: 150lbs. 0.0oz. 68.771786oj; BMI Method:Stated General Appearance: No Apparent Distress, Chronically ill, Thin HEENT: PERRL/EOMI, Pharynx Normal Neck: Non Tender, Supple Respiratory: Lungs Clear, Normal Breath Sounds Cardiovascular: Regular Rate, Rhythm, No Murmur Gastrointestinal: Soft, Other (large wound to lower abdomen from hip to hip in the area of the reflection of the pannus. Wound is 8 cm wide and the length is the full width of the pannus. There is surrounding redness and warmth as well as tenderness noted to this area.) Back: Normal Inspection, No CVA Tenderness, No Vertebral Tenderness Extremity: Normal Range of Motion, Non Tender Neurologic/Psychiatric: Alert, Other (sluggish but answers questions appropriately and follows commands. Somewhat confused as to time.) Skin: warm/dry, other (large ulceration to the pannus as noted above) Focused Exam Lactate Level 03/04/18 09:46: Lactic Acid Level 0.76 Lactic Acid Level Laboratory Tests Test 03/04/18 09:46 Lactic Acid Level 0.76 MMOL/L (0.50-2.00) Progress/Results/Core Measures Suspected Sepsis Recent Fever Within 48 Hours: Yes Infection Criteria Present: Documented Infection New/Unexplained Altered Menta: Yes Sepsis Screen: No Definite Risk SIRS Temperature:97.6 Pulse: 70 Respiratory Rate: 18 Laboratory Tests 03/04/18 09:10: White Blood Count 10.7 Blood Pressure 136 /42 Mean: 73 03/04/18 09:46: Lactic Acid Level 0.76 Laboratory Tests 03/04/18 09:10: Creatinine 4.92H, INR Comment 1.4, Platelet Count 184, Total Bilirubin 0.3 Results/Orders Lab Results Laboratory Tests Test 03/04/18 09:10 03/04/18 09:46 Range/Units White Blood Count 10.7 4.3-11.0 10^3/uL Red Blood Count 2.88 L 4.35-5.85 10^6/uL Hemoglobin 8.5 L 11.5-16.0 G/DL Hematocrit 28 L 35-52 % Mean Corpuscular Volume 97 80-99 FL Mean Corpuscular Hemoglobin 30 25-34 PG Mean Corpuscular Hemoglobin Concent 31 L 32-36 G/DL Red Cell Distribution Width 16.7 H 10.0-14.5 % Platelet Count 184 130-400 10^3/uL Mean Platelet Volume 10.0 7.4-10.4 FL Neutrophils (%) (Auto) 79 H 42-75 % Lymphocytes (%) (Auto) 12 12-44 % Monocytes (%) (Auto) 9 0-12 % Eosinophils (%) (Auto) 0 0-10 % Basophils (%) (Auto) 0 0-10 % Neutrophils # (Auto) 8.5 H 1.8-7.8 X 10^3 Lymphocytes # (Auto) 1.3 1.0-4.0 X 10^3 Monocytes # (Auto) 0.9 0.0-1.0 X 10^3 Eosinophils # (Auto) 0.0 0.0-0.3 10^3/uL Basophils # (Auto) 0.0 0.0-0.1 10^3/uL Prothrombin Time 16.9 H 12.2-14.7 SEC INR Comment 1.4 0.8-1.4 Activated Partial Thromboplast Time 49 H 24-35 SEC Sodium Level 131 L 135-145 MMOL/L Potassium Level 4.9 3.6-5.0 MMOL/L Chloride Level 94 L 98-107 MMOL/L Carbon Dioxide Level 22 21-32 MMOL/L Anion Gap 15 H 5-14 MMOL/L Blood Urea Nitrogen 59 H 7-18 MG/DL Creatinine 4.92 H 0.60-1.30 MG/DL Estimat Glomerular Filtration Rate 9 BUN/Creatinine Ratio 12 Glucose Level 113 H 70-105 MG/DL Calcium Level 9.2 8.5-10.1 MG/DL Corrected Calcium 10.5 H 8.5-10.1 MG/DL Total Bilirubin 0.3 0.1-1.0 MG/DL Aspartate Amino Transf (AST/SGOT) 11 5-34 U/L Alanine Aminotransferase (ALT/SGPT) < 6 0-55 U/L Alkaline Phosphatase 215 H 40-136 U/L Total Protein 6.4 6.4-8.2 GM/DL Albumin 2.4 L 3.2-4.5 GM/DL Lactic Acid Level 0.76 0.50-2.00 MMOL/L My Orders Orders - FAIZAN MUIR MD Cbc With Automated Diff (03/04/18 09:15) Comprehensive Metabolic Panel (03/04/18 09:15) Blood Culture (03/04/18:15) Sputum Culture (03/04/18:15) Urinalysis (03/04/18:15) Urine Culture (03/04/18:15) Protime With Inr (03/04/18:15) Partial Thromboplastin Time (03/04/18 09:15) Chest 1 View, Ap/Pa Only (03/04/18 09:15) Vital Signs Adult Sepsis Patie Q15M (12/9/18 09:15) O2 (03/04/18 09:15) Remove Rings In Anticipation O (03/04/18 09:15) Lactic Acid Analyzer (03/04/18 09:15) Wound Culture (03/04/18 10:34) Cefepime Injection (Maxipime Injection) (03/04/18 10:40) Vital Signs/I&O 03/04/18 03/04/18 09:03 09:03 Temp 97.6 Pulse 70 Resp 18 B/P (MAP) 136/42 (73) Pulse Ox 100 100 O2 Delivery Nasal Cannula O2 Flow Rate 2.00 Capillary Refill : Less Than 3 Seconds Blood Pressure Mean: 73 Progress Note : Progress Note Seen and evaluated. IV, labs, blood cultures and lactic acid ordered. Chest x- ray ordered. UA ordered but patient reports that she does not make urine. Wound dressing taken down and wound culture obtained. Foul-smelling drainage noted. Concerns of pseudomonas infection due to small bowel and parents of the wound but no culture verification yet. Patient will require IV antibiotics and due to her dialysis needs, will require dialysis center. 1045: I have made contact with [facility] in [facility] where she normally goes. Pending call back. 1051: I did speak to the on-call hospitalist and have reviewed the case with the PA on-call for with the hospitalist. They have accepted the patient in transfer. Cefepime 1 g IV initiated at this time. Patient to go by EMS. Patient and family agree with plan. Diagnostic Imaging Diagonstic Imaging: Xray Plain Films/CT/US/NM/MRI: chest Comments [facility], [place] NAME: [facility] REC#: [id number] PT STATUS: REG ER : 1960 PHYSICIAN: FAIZAN MUIR MD ADMIT DATE: 03/04/18/ER Draft Date of Exam:03/04/18 CHEST 1 VIEW, AP/PA ONLY INDICATION: Shortness of air. TECHNIQUE: Single view chest 9:27 AM. CORRELATION STUDY: 02/24/2018 FINDINGS: Heart size is rather significantly enlarged but relatively stable. Vascularity slightly increased. Lung cronin generally stable. Previously noted small right pleural effusion appears diminished. IMPRESSION: 1. Findings of congestive failure stable to perhaps minimally improved. The previously noted right pleural effusion appears diminished. Dictated on workstation # [id number] Dict: 03/04/1840 Trans: 03/04/18 0950 [facility] [id number] Interpreted by: HAYLIE ROSARIO DO Electronically signed by: Departure Impression Primary Impression: Chronic abdominal wound infection Qualified Codes: S31.109A - Unspecified open wound of abdominal wall, unspecified quadrant without penetration into peritoneal cavity, initial encounter; L08.9 - Local infection of the skin and subcutaneous tissue, unspecified Disposition: 02 XFER SHT-TRM HOSP Condition: Stable Transfer Time Spoke to Accepting Phy: 10:54 Transfer Facility: [place], [place], Dr. Taylor accepting Method of Transfer: EMS Departure-Patient Inst. Referrals: KELLI PRAJAPATI MD (PCP/Family) Primary Care Physician FAIZAN MUIR MD Mar 04, 2018 10:17
[2018-03-04] MEDS ORDERED: CEFEPIME INJECTION 1,000 MG in NS (IVPB) 50 ML IV STA (10:40)
[2018-03-04 11:48] VITALS: BP 101/35
== END 2018-03-04 11:52 | disposition short-term general hospital (02) ==
LOC: EDUNIT# 09:00 → ER 09:01
DX: E11.622 Type 2 diabetes mellitus with other skin ulcer (principal); L98.499 Non-pressure chronic ulcer of skin of other sites with unspecified severity; E11.22 Type 2 diabetes mellitus with diabetic chronic kidney disease; I13.2 Hypertensive heart and chronic kidney disease with heart failure and with stage 5 chronic kidney disease, or end stage renal disease; N18.6 End stage renal disease; I50.9 Heart failure, unspecified; K21.9 Gastro-esophageal reflux disease without esophagitis; D64.9 Anemia, unspecified; E78.00 Pure hypercholesterolemia, unspecified; E11.40 Type 2 diabetes mellitus with diabetic neuropathy, unspecified; Z88.8 Allergy status to other drugs, medicaments and biological substances; Z79.4 Long term (current) use of insulin; Z99.2 Dependence on renal dialysis; Z87.891 Personal history of nicotine dependence; Z87.01 Personal history of pneumonia (recurrent)
CPT/HCPCS: 36415; 71045; 80053; 83605; 85025; 85610; 85730; 87040; 87070; 87077; 87186; 87205

== ENCOUNTER 2018-04-15 21:54 | Emergency (ER) | payer MEDICARE | END 2018-04-16 02:04 | disposition home or self-care (01) | LOC: ER 21:54 ==

== ENCOUNTER 2018-04-17 15:21 | Emergency (ER) | payer MEDICARE ==
[~2018-04-17] VITALS: Ht 162.6 cm; Wt 40.8 kg
[~2018-04-17 15:21] MED LIST changes: -AMLO10TA6 PO; +AMLO10TA7 PO; +LEVO250T46 PO; +LOSA25TA41 PO; -LOSA25TA6 PO
--- NOTE | 2018-04-17 15:25 | NUR ---
triage time 1182
[2018-04-17 15:52] LABS: BASOPHILS % (AUTO) 0 % (0-10); EOSINOPHILS % (AUTO) 0 % (0-10); LYMPHOCYTES # (AUTO) 0.9 X 10^3 (1.0-4.0); LYMPHOCYTES % (AUTO) 20 % (12-44); MEAN CORPUSCULAR HEMOGLOBIN 29 PG (25-34); MEAN CORPUSCULAR HGB CONC 30 G/DL (32-36); MEAN CORPUSCULAR VOLUME 97 FL (80-99); MEAN PLATELET VOLUME 9.9 FL (7.4-10.4); MONOCYTES # (AUTO) 0.6 X 10^3 (0.0-1.0); MONOCYTES % (AUTO) 14 % (0-12); NEUTROPHILS # (AUTO) 2.9 X 10^3 (1.8-7.8); NEUTROPHILS % (AUTO) 65 % (42-75); PLATELET COUNT 133 10^3/uL (130-400); RED BLOOD COUNT 1.48 10^6/uL (4.35-5.85); RED CELL DISTRIBUTION WIDTH 18.2 % (10.0-14.5); WHITE BLOOD COUNT 4.5 10^3/uL (4.3-11.0)
[2018-04-17 15:56] LABS: HEMOGLOBIN 4.3 G/DL (11.5-16.0)
[2018-04-17 15:57] LABS: HEMATOCRIT 14 % (35-52)
[2018-04-17 16:04] LABS: INR 1.6 (0.8-1.4); PROTHROMBIN TIME PATIENT 18.6 SEC (12.2-14.7)
[2018-04-17 16:16] LABS: ALANINE AMINOTRANSFERASE < 6 U/L (0-55); ALBUMIN 1.7 GM/DL (3.2-4.5); ALKALINE PHOSPHATASE 179 U/L (40-136); BILIRUBIN,TOTAL 0.3 MG/DL (0.1-1.0); BUN/CREATININE RATIO 7; CALCIUM 8.2 MG/DL (8.5-10.1); CARBON DIOXIDE 25 MMOL/L (21-32); CHLORIDE 101 MMOL/L (98-107); CREATININE SERUM 2.68 MG/DL (0.60-1.30); GFR ESTIMATED 18; GLUCOSE 187 MG/DL (70-105); POTASSIUM 4.1 MMOL/L (3.6-5.0); SODIUM 141 MMOL/L (135-145); TOTAL PROTEIN 4.5 GM/DL (6.4-8.2)
[2018-04-17] MEDS ORDERED: NS IV 1000 ML 1,000 ML ONE (16:28)
--- NOTE | 2018-04-17 16:37 | ED General ---
General Chief Complaint: Abdominal/GI Problems Stated Complaint: ABD PAIN Nursing Triage Note: PT ARRIVED PER EMS, PT VERY PALE, PT HAS BEEN BLEEDING FROM RECTUM, NOSE R LEG AND ABD. LARGE AMT OF BLOOD LOSS PER EMS AND NH. PT ON O2 AT 8L PER MASK Nursing Sepsis Screen: No Definite Risk Source of Information: Patient Exam Limitations: No Limitations History of Present Illness Date Seen by Provider: Apr 17, 2018 Time Seen by Provider: 15:38 Initial Comments Here by EMS with report of bleeding from her abdominal wound, rectal bleeding, bleeding from her nose and bleeding from her leg. Patient is on dialysis on Monday, Monday and Monday. Seen a few days ago for wound infection and started on antibiotics at that time. 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 Denies fever but is extremely weak. Apparently she was quite pale and was even unresponsive for a time at the group home. She is responding now on answering questions appropriately. Her typical tertiary hospital is [facility] in [place], [place] due to her dialysis needs. Timing/Duration: 1/2 Hour Severity: Severe Associated Systoms: No Chest Pain, No Cough, No Fever/Chills, No Nausea/ Vomiting, No Shortness of Air; Weakness Allergies and Home Medications Allergies Coded Allergies: lisinopril (Verified Allergy, Unknown, 12/28/17) Home Medications Amlodipine Besylate 10 Mg Tablet, 10 MG PO DAILY, (Reported) Carvedilol 25 Mg Tab, 25 MG PO BID, (Reported) Clonidine HCl 0.1 Mg Tablet, 0.1 MG PO TID, (Reported) Insulin NPH Human Isophane 100 Unit/1 Ml Vial, 5 UNIT SQ HS, (Reported) Levofloxacin 250 Mg Tablet, 250 MG PO UD Take Monday, Monday and Monday after dialysis Prescribed by: ZACHERY YANG on 04/16/18 0149 Losartan Potassium 25 Mg Tablet, 12.5 MG PO DAILY, (Reported) Pantoprazole Sodium 40 Mg Tablet.dr, 40 MG PO DAILY, (Reported) Sevelamer Carbonate 800 Mg Tablet, 1,600 MG PO AC, (Reported) Patient Home Medication List Home Medication List Reviewed: Yes Review of Systems Review of Systems Constitutional: see HPI; No chills, No fever; weakness EENTM: epistaxis; No nose congestion Respiratory: no symptoms reported Cardiovascular: No chest pain, No edema Gastrointestinal: abdominal pain (In the area of the wound); No nausea, No vomiting; other (rectal bleeding) Genitourinary: other (does not urinate with dialysis) Musculoskeletal: No muscle pain; muscle weakness Skin: change in color, lesions Psychiatric/Neurological: Weakness Hematologic/Lymphatic: Anemia, Easy Bleeding All Other Systems Reviewed Negative Unless Noted: Yes Past Oyabkmo-Tiatls-Bqysqz Hx Past Med/Social Hx: Reviewed Nursing Past Med/Soc Hx Patient Social History Alcohol Use: Denies Use Recreational Drug Use: No Smoking Status: Former Smoker Type Used: Cigarettes 2nd Hand Smoke Exposure: No Recent Foreign Travel: No Contact w/Someone Who Travel: No Recent Infectious Disease Expo: No Recent Hopitalizations: No Immunizations Up To Date Tetanus Booster (TDap): Unknown PED Vaccines UTD: Yes Seasonal Allergies Seasonal Allergies: No Past Medical History Surgeries: Yes (fistula left upper extremity; ABDOMINAL WALL WOUND) Abdominal, Dialysis, Vascular Surgery Respiratory: Yes (CHRONIC HYPOXIA) Pneumonia Cardiac: Yes (CALCIPHYLAXIS; CHF) Chronic Edema/Swelling, High Cholesterol, Hypertension Neurological: Yes (PERIPHERAL NEUROPATHY) Neuropathy 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 Genitourinary: Yes Renal Failure, Dialysis Gastrointestinal: Yes (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; ) Gastroesophageal Reflux Musculoskeletal: No Endocrine: Yes (CALCIPHYLAXIS) Diabetes, Insulin dep HEENT: No Cancer: No Psychosocial: No Integumentary: Yes Recent Skin Changes Blood Disorders: Yes (CHRONIC ANEMIA) Family Medical History Reviewed Nursing Family Hx No Pertinent Family Hx Physical Exam Vital Signs Vital Signs - First Documented 04/17/18 16:00 Temp 96.2 Pulse 73 Resp 18 B/P (MAP) 106/44 (64) Pulse Ox 94 O2 Delivery OxyMask O2 Flow Rate 8.00 Capillary Refill : Greater Than 3 Seconds Height, Weight, BMI Height: 5'4.00" Weight: 90lbs. 4.0oz. 40.112196uf; BMI Method:Estimated General Appearance: No Apparent Distress, WD/WN HEENT: PERRL/EOMI, Pharynx Normal Neck: Non Tender, Supple Respiratory: Lungs Clear, Normal Breath Sounds Cardiovascular: Regular Rate, Rhythm, No Murmur Gastrointestinal: Soft, Other (large abdominal wound is bleeding and covered with blood soaked dressings and foul-smelling drainage.) Rectal: Other (gross blood from Rectum) Extremity: Pedal Edema (bilateral lower extremity edema 2+), Other (bleeding wound from under been on right leg at mid calf medial aspect.) Neurologic/Psychiatric: Alert, Motor Weakness (global) Skin: Cool, Pallor Focused Exam Lactate Level 04/17/18 17:50: Lactic Acid Level 2.86*H Lactic Acid Level Laboratory Tests Test 04/17/18 17:50 Lactic Acid Level 2.86 MMOL/L (0.50-2.00) *H Progress/Results/Core Measures Suspected Sepsis Recent Fever Within 48 Hours: No Infection Criteria Present: None New/Unexplained Altered Menta: No Sepsis Screen: No Definite Risk SIRS Temperature:96.2 Pulse: 73 Respiratory Rate: 18 Laboratory Tests 04/17/18 15:33: White Blood Count 4.5 Blood Pressure 106 /44 Mean: 64 04/17/18 17:50: Lactic Acid Level 2.86*H Laboratory Tests 04/17/18 15:33: Creatinine 2.68#H, INR Comment 1.6H, Platelet Count 133, Total Bilirubin 0.3 Results/Orders Lab Results Laboratory Tests Test 04/17/18 15:33 04/17/18 17:50 Range/Units White Blood Count 4.5 4.3-11.0 10^3/uL Red Blood Count 1.48 L 4.35-5.85 10^6/uL Hemoglobin 4.3 #*L 11.5-16.0 G/DL Hematocrit 14 *L 35-52 % Mean Corpuscular Volume 97 80-99 FL Mean Corpuscular Hemoglobin 29 25-34 PG Mean Corpuscular Hemoglobin Concent 30 L 32-36 G/DL Red Cell Distribution Width 18.2 H 10.0-14.5 % Platelet Count 133 130-400 10^3/uL Mean Platelet Volume 9.9 7.4-10.4 FL Neutrophils (%) (Auto) 65 42-75 % Lymphocytes (%) (Auto) 20 12-44 % Monocytes (%) (Auto) 14 H 0-12 % Eosinophils (%) (Auto) 0 0-10 % Basophils (%) (Auto) 0 0-10 % Neutrophils # (Auto) 2.9 1.8-7.8 X 10^3 Lymphocytes # (Auto) 0.9 L 1.0-4.0 X 10^3 Monocytes # (Auto) 0.6 0.0-1.0 X 10^3 Eosinophils # (Auto) 0.0 0.0-0.3 10^3/uL Basophils # (Auto) 0.0 0.0-0.1 10^3/uL Prothrombin Time 18.6 H 12.2-14.7 SEC INR Comment 1.6 H 0.8-1.4 Activated Partial Thromboplast Time 34 24-35 SEC Fibrinogen 474 221-496 MG/DL D-Dimer 2.35 H 0.00-0.49 UG/ML Sodium Level 141 135-145 MMOL/L Potassium Level 4.1 3.6-5.0 MMOL/L Chloride Level 101 98-107 MMOL/L Carbon Dioxide Level 25 21-32 MMOL/L Anion Gap 15 H 5-14 MMOL/L Blood Urea Nitrogen 18 7-18 MG/DL Creatinine 2.68 #H 0.60-1.30 MG/DL Estimat Glomerular Filtration Rate 18 BUN/Creatinine Ratio 7 Glucose Level 187 H 70-105 MG/DL Calcium Level 8.2 L 8.5-10.1 MG/DL Corrected Calcium 10.0 8.5-10.1 MG/DL Total Bilirubin 0.3 0.1-1.0 MG/DL Aspartate Amino Transf (AST/SGOT) 16 5-34 U/L Alanine Aminotransferase (ALT/SGPT) < 6 0-55 U/L Alkaline Phosphatase 179 H 40-136 U/L C-Reactive Protein High Sensitivity 16.64 H 0.00-0.50 MG/DL Total Protein 4.5 L 6.4-8.2 GM/DL Albumin 1.7 L 3.2-4.5 GM/DL Lactic Acid Level 2.86 *H 0.50-2.00 MMOL/L My Orders Orders - FAIZAN MUIR MD Cbc With Automated Diff (04/17/18 15:42) Comprehensive Metabolic Panel (04/17/18 15:42) Hs C Reactive Protein (04/17/18 15:42) Protime With Inr (04/17/18 15:42) Partial Thromboplastin Time (04/17/18 15:42) Red Cells Leukocytes Reduced (04/17/18 15:42) Saline Lock/Iv-Start (04/17/18 15:42) Type And Screen (04/17/18 15:42) Fresh Frozen Plasma (04/17/18 15:58) Ns Iv 1000 Ml (Sodium Chloride 0.9%) (04/17/18 16:28) Chest 1 View, Ap/Pa Only (04/17/18 16:42) Fibrin Degradation Products (04/17/18 16:50) Fibrinogen (04/17/18 16:50) Lactic Acid Analyzer (04/17/18 17:38) Blood Culture (04/17/18 17:38) Red Cells Leukocytes Reduced (04/17/18 15:33) Medications Given in ED Current Medications Medications Dose Ordered Sig/Jorge A Route Start Time Stop Time Status Last Admin Dose Admin Sodium Chloride 1,000 ml @ ud STK-MED ONCE .ROUTE 04/17/18 16:28 04/17/18 16:32 DC 04/17/18 16:53 1,000 MLS/HR Vital Signs/I&O 04/17/18 04/17/18 04/17/18 04/17/18 16:00 16:53 17:04 17:16 Temp 96.2 98.0 98.0 98.0 Pulse 73 73 74 72 Resp 18 18 18 15 B/P (MAP) 106/44 (64) 103/29 117/38 120/35 Pulse Ox 94 100 99 100 O2 Delivery OxyMask OxyMask OxyMask OxyMask O2 Flow Rate 8.00 8.00 8.00 12.00 Capillary Refill : Greater Than 3 Seconds Blood Pressure Mean: 64 Progress Note : Progress Note Seen and evaluated. EMS established IV on left arm. We established IV and other arm as well. Labs as well as type and cross for 2 units ordered. FFP added when he woke and noted to be 4.3. Platelets are normal. Hemoglobin is significantly decreased from previous visit which had hemoglobin in the range of 6 and previous visit to that hemoglobin was in the range of 8. Patient will require central line for blood product administration. Surgeon notified at [address] central line in the emergency department. 1716: Central line has been placed and blood products are continuing. We have discussed the case with [facility] in [facility] and they currently have no critical care beds available. I have discussed the case with [facility] in [facility]. They are also tight on critical care beds but believe they may be old to accept the transfer tonight. We will continue with the process of transfer there while continuing to manage the patient here. Blood pressure is 120/35 with heart rate of 70 and O2 sat of 100 percent on 8 L via oximeter asked currently. She has received one unit of blood and is getting a second unit of blood now with the FFP via central line. Family and patient informed of situation and agree with transfer to [facility] if available. 1740: I did discuss the case with Dr. Dax Ellis at [facility] in [facility], on- call for critical care. Case reviewed in full. He accepts patient for transfer. We discussed antibiotics and patient did receive a dose of Levaquin yesterday after dialysis so we will hold on antibiotics at this point as recent culture shows that abdominal wound is sensitive to Levaquin for all 3 organisms. Blood cultures and lactic acid have been drawn. Dr. Ellis is okay with waiting for antibiotics at this point as she has been dosed. Blood loss seems to be the greater issue than infection as patient is not febrile and she does not have an elevated white count. 1835: [facility] has called and given bed number for patient to the ICU and we will initiate transfer to their facility. EMS is currently on a transfer to another facility so we will have to wait for ambulance availability. All of findings and concerns were discussed with the patient and family and they agree with plan. Lactic acid is noted to be slightly over 2 which I believe is related to blood loss but certainly there could be a component of infection as well. She is currently prescribed appropriate antibiotic. We will continue current therapy as discussed above. A copy of the microbiology results are sent with the packet. Departure Impression Primary Impression: Profound anemia Qualified Codes: D64.9 - Anemia, unspecified Additional Impressions: GI bleed Qualified Codes: K62.5 - Hemorrhage of anus and rectum Wound infection Bleeding from wound Disposition: XFER SHT-TRM HOSP Condition: Stable Transfer Time Spoke to Accepting Phy: 17:40 Transfer Time: 18:40 Transfer Facility: [place], [place], Dr. Dax Ellis accepting. Method of Transfer: EMS Departure-Patient Inst. Referrals: SELF,KELLI BELL (PCP/Family) Primary Care Physician FAIZAN MUIR MD Apr 17, 2018 16:37
[2018-04-17 16:53] VITALS: BP 103/29
[2018-04-17 17:04] VITALS: BP 117/38
[2018-04-17 17:06] LABS: FIBRIN DEGRADATION PRODUCTS 2.35 UG/ML (0.00-0.49)
[2018-04-17 17:16] VITALS: BP 120/35
--- NOTE | 2018-04-17 17:37 | Diagnostic Imaging Report ---
INDICATION: Central venous catheter placement. COMPARISON: 03/04/2018. FINDINGS: Single view of the chest demonstrates left IJ central venous catheter in place. The tip is in the SVC. There is no pneumothorax. A second right IJ catheter is present with the tip in the SVC as well. There is minimal atelectasis in both bases. Heart is enlarged without pulmonary edema. IMPRESSION: Central venous catheters without pneumothorax. Dictated by: Dictated on workstation # [id number]
--- NOTE | 2018-04-17 18:32 | Progress Note-Post Operative ---
Post-Operative Progess Note Surgeon (s)/Mold Maintenance Technician (s) Surgeon SOFIYA RAINES DO Mold Maintenance Technician: na Pre-Operative Diagnosis anemia, GI bleed Post-Operative Diagnosis same Procedure & Operative Findings Date of Procedure 04/17/18 Procedure Performed/Findings right internal jugular vein ultrasound guided central line placement Anesthesia Type local Estimated Blood Loss Estimated blood loss (mL): minimal Specimens/Packing Specimens Removed nonapplicable SOFIYA RANIES DO Apr 17, 2018 18:32
--- NOTE | 2018-04-17 18:38 | Consultation ---
History of Present Illness History of Present Illness Patient Consulted On(epi/time) 04/17/18 16:33 Date Seen by Provider: Apr 17, 2018 Time Seen by Provider: 16:33 History of Present Illness consult requested by Dr. Rhodes for central line placement Patient seen and examined in emergency department. Patient is a 57-year-old female who [facility] has had more bleeding and was reportedly slightly unresponsive. Patient states that she usually has some bleeding from her abdominal wound but was having more extensive bleeding also from her rectum her nose and also from her abdominal wound and a right lower extremity wound. 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 Patient is extremely pale and lethargic. Her is with her. Patient is having some shortness of breath as well. She states that she has not had bleeding from her rectum previously. She has dialysis Monday and Fridays. She has a dialysis catheter left chest. Allergies and Home Medications Allergies Coded Allergies: lisinopril (Verified Allergy, Unknown, 12/28/17) Home Medications Amlodipine Besylate 10 Mg Tablet, 10 MG PO DAILY, (Reported) Carvedilol 25 Mg Tab, 25 MG PO BID, (Reported) Clonidine HCl 0.1 Mg Tablet, 0.1 MG PO TID, (Reported) Insulin NPH Human Isophane 100 Unit/1 Ml Vial, 5 UNIT SQ HS, (Reported) Levofloxacin 250 Mg Tablet, 250 MG PO UD Take Monday, Monday and Monday after dialysis Prescribed by: ZACHERY YANG on 04/16/18 0149 Losartan Potassium 25 Mg Tablet, 12.5 MG PO DAILY, (Reported) Pantoprazole Sodium 40 Mg Tablet.dr, 40 MG PO DAILY, (Reported) Sevelamer Carbonate 800 Mg Tablet, 1,600 MG PO AC, (Reported) Patient Home Medication List Home Medication List Reviewed: Yes Past Dccuumu-Nylivs-Ufhjnj Hx Patient Social History Alcohol Use: Denies Use Recreational Drug Use: No Smoking Status: Former Smoker Type Used: Cigarettes 2nd Hand Smoke Exposure: No Recent Foreign Travel: No Contact w/Someone Who Travel: No Recent Infectious Disease Expo: No Recent Hopitalizations: No Immunizations Up To Date Tetanus Booster (TDap): Unknown PED Vaccines UTD: Yes Seasonal Allergies Seasonal Allergies: No Surgeries History of Surgeries: Yes (fistula left upper extremity; ABDOMINAL WALL WOUND) Surgeries: Abdominal, Dialysis, Vascular Surgery Respiratory History of Respiratory Disorde: Yes (CHRONIC HYPOXIA) Respiratory Disorders: Pneumonia Cardiovascular History of Cardiac Disorders: Yes (CALCIPHYLAXIS; CHF) Cardiac Disorders: Chronic Edema/Swelling, High Cholesterol, Hypertension Neurological History of Neurological Disord: Yes (PERIPHERAL NEUROPATHY) Neurological Disorders: Neuropathy Reproductive System Hx 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: No 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 Genitourinary History of Genitourinary Disor: Yes Genitourinary Disorders: Renal Failure, Dialysis Gastrointestinal History of Gastrointestinal Di: Yes (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; ) Gastrointestinal Disorders: Gastroesophageal Reflux Musculoskeletal History of Musculoskeletal Dis: No Endocrine History of Endocrine Disorders: Yes (CALCIPHYLAXIS) Endocrine Disorders: Diabetes, Insulin dep HEENT History of HEENT Disorders: No Cancer History of Cancer: No Psychosocial History of Psychiatric Problem: No Integumentary History of Skin or Integumenta: Yes Skin/Integumentary Disorders: Recent Skin Changes Blood Transfusions History of Blood Disorders: Yes (CHRONIC ANEMIA) Family Medical History Significant Family History: No Pertinent Family Hx Review of Systems-General Constitutional: weakness EENTM: no symptoms reported Respiratory: see HPI Cardiovascular: no symptoms reported Gastrointestinal: see HPI Genitourinary: no symptoms reported Musculoskeletal: no symptoms reported Skin: see HPI Psychiatric/Neurological: No Symptoms Reported Physical Exam-General Problems Physical Exam Vital Signs Vital Signs - First Documented 04/17/18 16:00 Temp 96.2 Pulse 73 Resp 18 B/P (MAP) 106/44 (64) Pulse Ox 94 O2 Delivery OxyMask O2 Flow Rate 8.00 Capillary Refill : Greater Than 3 Seconds General Appearance: mild distress, thin HEENT: PERRL/EOMI, other ( blood from nares) Neck: non-tender, supple Respiratory: other (slightly labored breathing) Cardiovascular: regular rate, rhythm Gastrointestinal: other (Abdominal wound with pressure dressing applied) Rectal: deferred Extremities: other (Right lower extremity site bleeding from medial aspect) Neurologic/Psychiatric: no motor/sensory deficits, alert, normal mood/affect Skin: pallor Lymphatic: no adenopathy Data Review Labs Laboratory Tests 04/17/18 15:33: White Blood Count 4.5, Red Blood Count 1.48L, Hemoglobin 4.3#*L, Hematocrit 14*L , Mean Corpuscular Volume 97, Mean Corpuscular Hemoglobin 29, Mean Corpuscular Hemoglobin Concent 30L, Red Cell Distribution Width 18.2H, Platelet Count 133, Mean Platelet Volume 9.9, Neutrophils (%) (Auto) 65, Lymphocytes (%) (Auto) 20, Monocytes (%) (Auto) 14H, Eosinophils (%) (Auto) 0, Basophils (%) (Auto) 0, Neutrophils # (Auto) 2.9, Lymphocytes # (Auto) 0.9L, Monocytes # (Auto) 0.6, Eosinophils # (Auto) 0.0, Basophils # (Auto) 0.0, Prothrombin Time 18.6H, INR Comment 1.6H, Activated Partial Thromboplast Time 34, Fibrinogen 474, D-Dimer 2.35H, Sodium Level 141, Potassium Level 4.1, Chloride Level 101, Carbon Dioxide Level 25, Anion Gap 15H, Blood Urea Nitrogen 18, Creatinine 2.68#H, Estimat Glomerular Filtration Rate 18, BUN/Creatinine Ratio 7, Glucose Level 187H, Calcium Level 8.2L, Corrected Calcium 10.0, Total Bilirubin 0.3, Aspartate Amino Transf (AST/SGOT) 16, Alanine Aminotransferase (ALT/SGPT) < 6, Alkaline Phosphatase 179H, C-Reactive Protein High Sensitivity 16.64H, Total Protein 4.5L, Albumin 1.7L 04/17/18 17:50: Lactic Acid Level 2.86*H Assessment/Plan Assessment/Plan Assessment/Plan Chronic kidney disease requiring hemodialysis Profound anemia secondary to bleeding from GI tract nares and chronic abdominal wound Needs central line placement Patient and family were discussed risk and benefits of placing central line which they understand and wish to proceed. Arrangement for patient transfer due to hemodialysis needs is being made by Dr. Rhodes Central line to be placed. planning transfusion of packed red blood cells 2 units and [facility] SOFIYA RAINES DO Apr 17, 2018 18:38
--- NOTE | 2018-04-17 18:42 | NUR ---
REPORT CALLED TO SHANTEL GRAY AT [facility]
--- NOTE | 2018-04-17 19:12 | NUR ---
REPORT TO AZAEL GRAY
[2018-04-17 20:46] VITALS: BP 137/59
--- NOTE | 2018-04-18 02:40 | OPERATIVE REPORT ---
DATE OF SERVICE: 04/17/2018 PREOPERATIVE DIAGNOSIS: Anemia, gastrointestinal bleed. POSTOPERATIVE DIAGNOSIS: Anemia, gastrointestinal bleed. PROCEDURE: Right internal jugular vein ultrasound-guided central line placement. SURGEON: Sofiya Lucas DO ANESTHESIA: Local. ESTIMATED BLOOD LOSS: Minimal. COMPLICATIONS: None. INDICATIONS: The patient is a 57-year-old female with GI bleed and profound anemia. She has calciphylaxis of her abdomen, which has chronic bleeding wound and also now having rectal bleeding and bleeding from her nares. Her hemoglobin is in the 4 range. The patient needing transfusion and needing central line placed. The patient understands risks and benefits of the procedure along with her and wished for us to proceed with central line placement. PROCEDURE IN DETAIL: The right internal jugular vein area was prepped and draped in a sterile fashion. Timeout was performed. The ultrasound was used to locate the right internal jugular vein. A 2 mL of 1% lidocaine was used to anesthetize the area. Using ultrasound, the right internal jugular vein was accessed and dark nonpulsatile blood was withdrawn. A guidewire was inserted through the needle and the needle was removed. A #11 blade scalpel was used to make a stab incision at the insertion point. The dilator was then advanced over the guidewire and removed. The triple lumen catheter was then advanced over the guidewire and the wire was removed. The catheter was then sewn into place. All ports were accessed and flushed without difficulty. The area was then washed and dried and sterile bandage was applied. The patient tolerated the procedure well without any complications. Chest x-ray pending. Job ID: [id number] DocumentID: [id number] Dictated Date: 04/17/2018 18:45:32 Bluing Oven Tender Date: 04/18/2018 02:39:37 Dictated By: SOFIYA LUCAS DO
[2018-04-18] MEDS ORDERED: NS IV 1000 ML 2,000 ML ONE (07:11)
== END 2018-04-17 20:46 | disposition short-term general hospital (02) ==
LOC: EDUNIT# 15:21 → ER 15:23
DX: S31.109A Unspecified open wound of abdominal wall, unspecified quadrant without penetration into peritoneal cavity, initial encounter (principal); D64.9 Anemia, unspecified; K92.2 Gastrointestinal hemorrhage, unspecified; E78.00 Pure hypercholesterolemia, unspecified; E11.22 Type 2 diabetes mellitus with diabetic chronic kidney disease; I13.2 Hypertensive heart and chronic kidney disease with heart failure and with stage 5 chronic kidney disease, or end stage renal disease; N18.6 End stage renal disease; I50.9 Heart failure, unspecified; L08.9 Local infection of the skin and subcutaneous tissue, unspecified; E11.40 Type 2 diabetes mellitus with diabetic neuropathy, unspecified; Z79.4 Long term (current) use of insulin; Z99.2 Dependence on renal dialysis; Z98.890 Other specified postprocedural states; Z87.891 Personal history of nicotine dependence; Z87.01 Personal history of pneumonia (recurrent); X58.XXXA Exposure to other specified factors, initial encounter
CPT/HCPCS: 36415; 71045; 80053; 83605; 85025; 85379; 85384; 85610; 85730; 86141; 86850; 86900; 86901; 86920; 87040

== ENCOUNTER 2018-05-03 13:31 | Outpatient (CLI) | payer MEDICARE ==
[~2018-05-03] VITALS: Ht 162.6 cm; Wt 40.9 kg
[2018-05-03 13:45] VITALS: BP 152/61
--- NOTE | 2018-05-03 15:36 | Diagnostic Imaging Report ---
INDICATION: PICC line placement. COMPARISON: 04/17/2018 FINDINGS: The right PICC catheter has been placed, the tip extends to a level just below the right mainstem bronchus in the mid to lower SVC in good position. Bilateral effusions greater right. Cardiomegaly. Vascular congestion and zones of atelectasis. Questionable findings for edema present. IMPRESSION: PICC line in good position mid to lower SVC. There maybe failure pattern with cardiomegaly, vascular congestion, pleural fluid and infiltrates or edema with zones of atelectasis. Dictated by: Dictated on workstation # [id number]
== END 2018-05-03 16:00 | disposition home or self-care (01) ==
LOC: SDC 13:31
PROVIDERS: ATTEND Family Medicine
DX: Z99.2 Dependence on renal dialysis (principal)
CPT/HCPCS: 36569; 71045; 76937

== ENCOUNTER 2018-05-14 10:45 | Outpatient (CLI) | payer MEDICARE ==
[~2018-05-14] VITALS: Ht 162.6 cm; Wt 40.8 kg
== END 2018-05-14 11:38 | disposition home or self-care (01) ==
LOC: PREOP 10:45
PROVIDERS: ATTEND Podiatrist Foot & Ankle Surgery
DX: Z01.818 Encounter for other preprocedural examination (principal)

== ENCOUNTER 2018-05-15 06:19 | Day surgery (SDC) | payer MEDICARE ==
[~2018-05-15] VITALS: Ht 162.6 cm; Wt 69.0 kg
--- NOTE | 2018-05-15 06:35 | NUR ---
KAYLENE AMADOR, PEANUT SHAKER NOTIFIED OF BLOOD SUGAR 57
[2018-05-15] MEDS ORDERED: PROPOFOL INJECTION 50 ML IV ONE (06:49)
[2018-05-15] MEDS ORDERED: LACTATED RINGERS 1,000 ML IV PRN (06:57)
[2018-05-15 06:59] VITALS: BP 139/71
[2018-05-15] MEDS ORDERED: MIDAZOLAM 2 MG/2 ML (VERSED) VIAL ONE (06:59)
[2018-05-15] MEDS ORDERED: ceFAZolin INJECTION 1,000 MG in NS (IVPB) 50 ML IV ONE (07:00)
--- NOTE | 2018-05-15 07:07 | Progress Note-Pre Operative ---
Pre-Operative Progress Note H&P Reviewed The H&P was reviewed, patient examined and no changes noted. Date Seen by Provider: May 15, 2018 Time Seen by Provider: 07:07 Date H&P Reviewed: May 15, 2018 Time H&P Reviewed: 07:07 Pre-Operative Diagnosis: Osteomyelitis left 3rd toe DAVID PERKINS DPM May 15, 2018 07:07
[2018-05-15] MEDS ORDERED: BUP/EPI 0.5% 1:200,000 (SENSORCAINE) 30 ML VIAL ONE (07:09)
[2018-05-15] MEDS ORDERED: LIDOCAINE 1% INJ 20 ML 20 ML VIAL ONE (07:10)
[2018-05-15] MEDS ORDERED: BUPIVACAINE 0.25% 30 ML (SENSORCAINE) VIAL ONE (07:12)
[2018-05-15] MEDS ORDERED: ceFAZolin 1,000 MG/SWFI 10 ML IV PUSH IV ONE ×2 (07:15)
[2018-05-15] MEDS ORDERED: NS IV 500 ML 500 ML IV PRN (07:17)
[2018-05-15] MEDS ORDERED: LACTATED RINGERS 1,000 ML IV SCH (08:08)
--- NOTE | 2018-05-15 08:08 | Progress Note-Post Operative ---
Post-Operative Progess Note Surgeon (s)/Felt Machine Mechanic (s) Surgeon DAVID PERKINS DPM Felt Machine Mechanic: NONE Pre-Operative Diagnosis Osteomyelitis left 3rd toe Post-Operative Diagnosis Same Procedure & Operative Findings Date of Procedure 05/15/18 Procedure Performed/Findings Partial amputation of the left 3rd toe Anesthesia Type MAC Estimated Blood Loss Estimated blood loss (mL): minimal Specimens/Packing Specimens Removed Distal and middle phalanx of left 3rd toe DAVID PERKINS DPM May 15, 2018 08:08
[2018-05-15] MEDS ORDERED: HYDROcodone/APAP 5 MG/325 MG (LORTAB) TAB PO PRN (08:15)
[2018-05-15] MEDS ORDERED: ONDANSETRON 4 MG/2 ML (SDV) Z0FRAN IVP PRN (08:30)
[2018-05-15 09:05] VITALS: BP 123/56
[2018-05-15 09:35] VITALS: BP 105/56
[2018-05-15 10:22] VITALS: BP 105/56
--- NOTE | 2018-05-15 11:01 | Anesthesia-General Post-Op ---
MAC Patient Condition Mental Status/LOC: Same as Preop Cardiovascular: Satisfactory Nausea/Vomiting: Absent Respiratory: Satisfactory Pain: Controlled Complications: Absent Post Op Complications Complications None Follow Up Care/Instructions Patient Instructions None needed. Anesthesiology Discharge Order Discharge Order Patient is doing well, no complaints, stable vital signs, no apparent adverse anesthesia problems. No complications reported per nursing. KAYLENE AMADOR CRNA May 15, 2018 11:01
--- NOTE | 2018-05-15 11:05 | Physical Therapy Ortho Eval ---
PT Orthopedic Evaluation Type of Surgery amputation of 3rd digit left foot. Prior Level of Function Current Living Status: Homeless (NH) Established Durable Medical Eq: Front Wheeled Walker, Hospital Bed Pt has a lift recliner and a 4WW Subjective Subjective Agreeable to PT. Has not been walking recently due to osteomyelitis left foot Entry Into Home: Level Entry Other Obstacles: Pt resides in a nursing facility Motor Control Motor Control: Motor Control WNL ROM ROM: WFL Strength Strength: Gen Weak,No Focal Deficit Transfer Transfers (B, C, W/C) (FIM): 4 (generally min assist with all functional transfers) Gait Gait Assistive Device: FWW Right Lower Extremity: Right Weight Bearing Status RLE: Full Weight Bearing Left Lower Extremity: Left Weight Bearing Status LLE: Full Weight Bearing Summary/Comments Pt was able to transfer to stand with min assist and steadying assist initially. She only took 3-4 steps to transfer to the chair with the FWW and required assist to lower to the chair in a safe fashion. Limited tolerance to standing and requires assist with transfer for safety. Pt required min assist to transfer to sit EOB. She required min assist to dress upper and lower body and assist to don her shoes. Plan Treatment Plan: Discharge Treatment Duration: 1 visit PT/Family Agrees to Plan: Yes Time Time In: 930 Time Out: 1000 Total Billed Treatment Time: 30 Billed Treatment Time visit EVM 15 FA 15 STACY GARCIA PT May 15, 2018 11:05
--- NOTE | 2018-05-15 11:44 | OPERATIVE REPORT ---
DATE OF SERVICE: 05/15/2018 SURGEON: Beatris Perkins DPM. PREOPERATIVE DIAGNOSIS: Osteomyelitis, left third toe. POSTOPERATIVE DIAGNOSIS: Osteomyelitis, left third toe. PROCEDURE: Partial amputation, left third toe. WOUND CLASS: Contaminated. ANESTHESIA: Monitored anesthesia care. HEMOSTASIS: None. INDICATIONS: This 57-year-old female presents with a chronic wound to the left third toe. X-rays indicating a significant osteolysis of the distal phalanx of the left third toe and visualization of the distal phalanx was also noted for quite some time through the wound. Since she does have chronic osteomyelitis, left third toe, she is agreeable to surgical intervention after risks and complications were discussed at length. No guarantees were extended to the patient and she is willing to proceed. DESCRIPTION OF PROCEDURE: The patient was brought back to the operating table, placed in secure supine position. Appropriate time out was performed. A pneumatic ankle tourniquet was placed on left lower extremity over several layers of padding, but it was never inflated during the procedure. The left foot was addressed with 6 mL of 0.25% Marcaine injected in a local infusion to the left third ray utilizing aseptic technique. The left foot was then prepped and draped in normal sterile manner. The left foot was then addressed at the third toe where a full-thickness ulceration was noted at the distal tip. There is a rigid contracture of the left third digit. Two semi-elliptical incisions were created to the left third digit overlying the proximal interphalangeal joint area. The first started from the medial aspect of the joint and went superior to the lateral aspect of the joint. A second incision was from the same beginning and ending points but extended to the distal plantar aspect of the middle phalanx, distal aspect allowing for plantar flap to be created. Next, the middle and distal phalanx were disarticulated at the proximal interphalangeal joint and the distal aspect of the toe was sent for gross and microscopic evaluation. A sample of the distal phalanx was also sent for cultures and sensitivities. The extensor and flexor tendons were cut as proximally as possible. There was not an excessive amount of bleeding, but there was some during this procedure. The wound was flushed with copious amounts of normal saline after which the head of the proximal phalanx was further contoured and smoothed with a rongeur and hand rasp. The wounds were flushed once again and a post-flush swab culture was taken prior to closure. Closure was then performed with 4-0 Prolene in a simple interrupted type stitch. The edges of the skin were coapted without tension. Appropriate cap refill time was noted to the plantar flap. Postoperative dressing consisted of Betadine soaked Adaptic, sterile 4 x 4's, Kerlix, all secured with a loose Coban wrap. The patient tolerated the anesthesia and procedure well and was transferred from the operating room to the recovery area with vital signs stable. Postoperative instructions were given to the patient to keep the dressing dry, clean and intact. She was given a postoperative prescription for hydrocodone. She will continue with her PICC line for antibiotic. We will see the patient back in the office in approximately 10 days' period of time or sooner if necessary. Job ID: [id number] DocumentID: [id number] Dictated Date: 05/15/2018 08:17:51 Extension Course Coordinator Date: 05/15/2018 11:43:17 Dictated By: BEATRIS PERKINS DPM
== END 2018-05-15 10:22 ==
LOC: SDC 06:19
PROVIDERS: ATTEND Podiatrist Foot & Ankle Surgery
DX: E11.69 Type 2 diabetes mellitus with other specified complication (principal); M86.672 Other chronic osteomyelitis, left ankle and foot; I13.11 Hypertensive heart and chronic kidney disease without heart failure, with stage 5 chronic kidney disease, or end stage renal disease; I50.32 Chronic diastolic (congestive) heart failure; N18.6 End stage renal disease; E11.22 Type 2 diabetes mellitus with diabetic chronic kidney disease; E11.40 Type 2 diabetes mellitus with diabetic neuropathy, unspecified; E78.2 Mixed hyperlipidemia; I34.0 Nonrheumatic mitral (valve) insufficiency; G47.33 Obstructive sleep apnea (adult) (pediatric); Z66 Do not resuscitate; Z79.82 Long term (current) use of aspirin; Z79.4 Long term (current) use of insulin; Z79.899 Other long term (current) drug therapy; Z99.2 Dependence on renal dialysis
CPT/HCPCS: 82962; 87070; 87075; 87077; 87081; 87101; 87205

== ENCOUNTER → 2018-05-16 | Outpatient (CLI) | payer MEDICARE ==
[~2018-05-16] VITALS: Ht 162.6 cm; Wt 69.0 kg
[~2018-05-16] MED LIST changes: +ACHD5005 PO; +DARB200V SQ; +DOCU-143 PO; +GABA-486 PO; +INSU100I10 SQ; +NS IV 500 ML 500 ML ONE
[2018-05-16 16:20] VITALS: BP 157/43
--- NOTE | 2018-05-16 18:05 | NUR ---
TO ROOM 403 PER PERSONAL W/C FOR COMPLETION OF ORDERED TREATMENT. REPORT TO Isaura PETTIT RN AND CARE OF PT TRANSFERRED TO [facility].
[2018-05-16 18:48] VITALS: BP 132/55
[2018-05-16 19:03] VITALS: BP 129/46
[2018-05-16 21:15] VITALS: BP 140/58
--- NOTE | 2018-05-16 21:15 | NUR ---
pt picc line flushed with 20ml ns post blood transfusion
[2018-05-16 21:30] VITALS: BP 140/58
== END ==
LOC: SDC 17:16
PROVIDERS: ATTEND Family Medicine
DX: D64.9 Anemia, unspecified (principal)
CPT/HCPCS: 86850; 86900; 86901; 86920

== ENCOUNTER 2018-06-14 07:16 | Outpatient (CLI) | payer MEDICARE ==
[2018-06-14] VITALS (7 sets, daily range): BP systolic 119–171; BP diastolic 46–79
[~2018-06-14] VITALS: Ht 162.6 cm; Wt 40.9 kg
[~2018-06-14 07:16] MED LIST changes: -NS IV 500 ML 500 ML ONE
[2018-06-14] MEDS ORDERED: NS IV 500 ML 500 ML IV ONE (08:00)
[2018-06-14] MEDS ORDERED: NS IV 500 ML 500 ML ONE (08:23)
[2018-06-14 11:40] LABS: HEMOGLOBIN 6.9 G/DL (11.5-16.0)
== END 2018-06-14 14:55 | disposition home or self-care (01) ==
LOC: SDC 07:16
PROVIDERS: ATTEND Internal Medicine Nephrology
DX: E61.1 Iron deficiency (principal)
CPT/HCPCS: 36415; 36430; 85014; 85018; 86850; 86900; 86901; 86920

== ENCOUNTER 2018-06-20 09:31 | Emergency (ER) | payer MEDICARE ==
[~2018-06-20] VITALS: Ht 167.6 cm; Wt 65.8 kg
--- NOTE | 2018-06-20 09:49 | ED Integumentary General ---
General Stated Complaint: ABD BLEEDING Source: patient, EMS, assisted records Exam Limitations: no limitations History of Present Illness Date Seen by Provider: Jun 20, 2018 Time Seen by Provider: 09:31 Initial Comments The patient presents to ER by EMS from medical [place] with chief complaint that this morning she was sitting on the toilet and had some bleeding from her abdominal wounds. She has a history of calciphylaxis and wounds on her abdomen which are under the care of Dr. Isaacs, wound care at [place], [place]. She just had a debridement done 2 days ago. EMS reports when they arrived the assisted and artery replaced the dressing and the bleeding had spontaneously stopped. She had to have blood transfusions for hemoglobin of 5 a few days ago so they are worried she might be anemic. She does have a history of chronic end- stage renal disease on hemodialysis with a fistula in her left arm. She has not had any fevers or chills and stood up for EMS with no problems, dizziness, lightheadedness, chest pain or shortness of breath. Patient says she has no new medicines for pain if she needs it. The patient states she's not on antibiotics yet but apparently Dr. Isaacs had ordered some and they are just waiting for them to arrive from pharmacy. No history of coronary artery disease. Allergies and Home Medications Allergies Coded Allergies: lisinopril (Verified Allergy, Unknown, 05/15/18) Home Medications Amlodipine Besylate 10 Mg Tablet, 10 MG PO DAILY, (Reported) Ascorbic Acid 500 Mg Capsule, 500 MG PO DAILY, (Reported) Aspirin 325 Mg Tablet, 325 MG PO DAILY, (Reported) Carvedilol 25 Mg Tab, 25 MG PO BID, (Reported) Cholecalciferol 5,000 Unit Capsule, 5,000 UNIT PO DAILY, (Reported) Clonidine HCl 0.1 Mg Tablet, 0.1 MG PO TID, (Reported) Darbepoetin Jesus 200 Mcg/Ml Soln, 100 MCG SQ WEEK, (Reported) Docusate Sodium 100 Mg Capsule, 100 MG PO BID, (Reported) Folic Acid 1 Mg Tablet, 1 MG PO DAILY, (Reported) Gabapentin 100 Mg Capsule, 100 MG PO HS, (Reported) Hydrocodone Bit/Acetaminophen 1 Tab Tab, 1-2 TAB PO Q6H PRN for PAIN-MODERATE Prescribed by: DAVID PERKINS on 05/15/18 0811 Insulin Glargine,Hum.rec.anlog 100 Unit/1 Ml Insuln.pen, 4 UNIT SQ HS, (Reported ) Insulin Lispro 100 Unit/1 Ml Insuln.pen, 0-14 UNIT SQ TID PRN for sliding scale, (Reported) Lanthanum Carbonate 1,000 Mg Powd.pack, 1,000 MG PO TIDWM, (Reported) Pantoprazole Sodium 40 Mg Tablet.dr, 40 MG PO DAILY, (Reported) Sevelamer Carbonate 800 Mg Tablet, 1,600 MG PO AC, (Reported) Simvastatin 10 Mg Tablet, 10 MG PO HS, (Reported) Patient Home Medication List Home Medication List Reviewed: Yes Review of Systems Review of Systems Constitutional: No chills, No fever, No malaise EENTM: No ear discharge, No hearing loss, No ear pain Respiratory: No cough, No short of breath Cardiovascular: No chest pain, No edema Gastrointestinal: No abdominal pain, No constipation, No diarrhea, No nausea, No vomiting Genitourinary: No discharge, No dysuria Musculoskeletal: No back pain, No joint pain Skin: see HPI Past Ikihxzr-Hxrtak-Mpbwdr Hx Patient Social History Alcohol Use: Denies Use Recreational Drug Use: No Type Used: Cigarettes 2nd Hand Smoke Exposure: No Recent Hopitalizations: Yes Immunizations Up To Date Tetanus Booster (TDap): Unknown PED Vaccines UTD: Yes Seasonal Allergies Seasonal Allergies: No Past Medical History Surgeries: Yes (fistula left upper extremity; ABDOMINAL WALL WOUND) Abdominal, Dialysis, Vascular Surgery Respiratory: Yes (CHRONIC HYPOXIA) Pneumonia Cardiac: Yes (CALCIPHYLAXIS; CHF) Chronic Edema/Swelling, High Cholesterol, Hypertension Neurological: Yes (PERIPHERAL NEUROPATHY) Neuropathy 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: No 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 Genitourinary: Yes Renal Failure, Dialysis Gastrointestinal: Yes (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; ) Gastroesophageal Reflux Musculoskeletal: Yes (osteomyelitis) Endocrine: Yes (CALCIPHYLAXIS) Diabetes, Insulin dep HEENT: No Cancer: No Psychosocial: No Integumentary: Yes Recent Skin Changes Blood Disorders: Yes (CHRONIC ANEMIA) Family Medical History No Pertinent Family Hx Physical Exam Vital Signs Capillary Refill : General Appearance: WD/WN, no apparent distress HEENT: PERRL/EOMI, normal ENT inspection, TMs normal, pharynx normal Neck: supple, normal inspection Cardiovascular: normal peripheral pulses, regular rate, rhythm, no edema Respiratory: lungs clear, normal breath sounds, no respiratory distress, no accessory muscle use Gastrointestinal: normal bowel sounds Extremities: non-tender, normal inspection, normal capillary refill Neurologic/Psychiatric: alert, normal mood/affect, oriented x 3 Skin: warm/dry, other (chronic wounds on the anterior abdomen that look like they've been recently debrided. The bases are a mixture of beefy, pink granulomatous tissue and some scant mucopurulent discharge. Hemostatic.) Skin Problem Location: other (lower abdomen) Progress/Results/Core Measures Results/Orders Lab Results Laboratory Tests Test 06/20/18 09:35 Range/Units White Blood Count 4.2 L 4.3-11.0 10^3/uL Red Blood Count 2.63 L 4.35-5.85 10^6/uL Hemoglobin 7.4 L 11.5-16.0 G/DL Hematocrit 24 L 35-52 % Mean Corpuscular Volume 91 80-99 FL Mean Corpuscular Hemoglobin 28 25-34 PG Mean Corpuscular Hemoglobin Concent 31 L 32-36 G/DL Red Cell Distribution Width 16.3 H 10.0-14.5 % Platelet Count 123 L 130-400 10^3/uL Mean Platelet Volume 10.0 7.4-10.4 FL Neutrophils (%) (Auto) 68 42-75 % Lymphocytes (%) (Auto) 18 12-44 % Monocytes (%) (Auto) 13 H 0-12 % Eosinophils (%) (Auto) 1 0-10 % Basophils (%) (Auto) 0 0-10 % Neutrophils # (Auto) 2.9 1.8-7.8 X 10^3 Lymphocytes # (Auto) 0.8 L 1.0-4.0 X 10^3 Monocytes # (Auto) 0.5 0.0-1.0 X 10^3 Eosinophils # (Auto) 0.0 0.0-0.3 10^3/uL Basophils # (Auto) 0.0 0.0-0.1 10^3/uL Sodium Level 138 135-145 MMOL/L Potassium Level 4.5 3.6-5.0 MMOL/L Chloride Level 93 L 98-107 MMOL/L Carbon Dioxide Level 26 21-32 MMOL/L Anion Gap 19 H 5-14 MMOL/L Blood Urea Nitrogen 34 H 7-18 MG/DL Creatinine 4.22 H 0.60-1.30 MG/DL Estimat Glomerular Filtration Rate 11 BUN/Creatinine Ratio 8 Glucose Level 147 H 70-105 MG/DL Calcium Level 9.2 8.5-10.1 MG/DL My Orders Orders - JUAN BROWN Basic Metabolic Panel (06/20/18 09:41) Cbc With Automated Diff (06/20/18 09:41) Progress Progress Note : Time: 10:24 Progress Note Wounds are non-malodorous do not demonstrate significant evidence of infection. Vital signs are normal she is afebrile. We will obtain basic labs to rule out significant anemia or evidence of gross infection. She is already supposed to be on antibiotics outpatient so we will not make any changes to that plan. She has a scheduled follow-up appointment in the next 2 weeks with her wound care center. Sounds like the bleeding that was of concern in the first place was hemostatic by the time she arrived at our ER and she has no further concerns that we can address today. Departure Impression Primary Impression: Chronic abdominal wound infection Qualified Codes: S31.109S - Unspecified open wound of abdominal wall, unspecified quadrant without penetration into peritoneal cavity, sequela; L08.9 - Local infection of the skin and subcutaneous tissue, unspecified Additional Impression: End stage renal failure on dialysis Disposition: 01 HOME, SELF-CARE Condition: Stable Departure-Patient Inst. Decision time for Depature: 10:26 Referrals: KELLI PRAJAPATI MD (PCP/Family) Primary Care Physician Patient Instructions: Debridement of a Wound or Burn (DC) Add. Discharge Instructions: Obtain the antibiotics if prescribed by wound care. Keep the wound dressings changed as prescribed. If a small amount of bleeding does occur apply direct pressure for 10 minutes. Change dressing as necessary for soiling. Follow-up with wound care and return to the ER if you begin to have fevers, nausea vomiting or intractable pain. JUAN BROWN Jun 20, 2018 09:49
[2018-06-20 09:52] LABS: BASOPHILS % (AUTO) 0 % (0-10); EOSINOPHILS % (AUTO) 1 % (0-10); HEMATOCRIT 24 % (35-52); HEMOGLOBIN 7.4 G/DL (11.5-16.0); LYMPHOCYTES # (AUTO) 0.8 X 10^3 (1.0-4.0); LYMPHOCYTES % (AUTO) 18 % (12-44); MEAN CORPUSCULAR HEMOGLOBIN 28 PG (25-34); MEAN CORPUSCULAR HGB CONC 31 G/DL (32-36); MEAN CORPUSCULAR VOLUME 91 FL (80-99); MONOCYTES # (AUTO) 0.5 X 10^3 (0.0-1.0); MONOCYTES % (AUTO) 13 % (0-12); NEUTROPHILS # (AUTO) 2.9 X 10^3 (1.8-7.8); NEUTROPHILS % (AUTO) 68 % (42-75); PLATELET COUNT 123 10^3/uL (130-400); RED CELL DISTRIBUTION WIDTH 16.3 % (10.0-14.5); WHITE BLOOD COUNT 4.2 10^3/uL (4.3-11.0)
--- OUTSIDE RECORDS SUMMARY | 2018-06-20 09:57 | XMS REPORT ---
Author Author VICTORINA[facility]LLI [facility] Address [address] [place] [address] Care Team Providers Care Chief Privacy Officer Name Role Phone KELLI PRAJAPATI Unavailable PROBLEMS Type Condition ICD9-CM Code NZB22-EV Code Onset Dates Condition Status SNOMED Code Problem Type 2 diabetes mellitus with diabetic chronic kidney disease, unspecified CKD stage, unspecified whether group home insulin use E11.22 Active 827573504 Problem Blindness of both eyes H54.3 Active Problem Non-rheumatic mitral regurgitation I34.0 Active 607993945 Problem Adenomatous polyps D36.9 Active 29099061 Problem Ascites R18.8 Active 199549771 Problem Benign essential HTN I10 Active 16892528 Problem Chronic diastolic heart failure I50.32 Active 463070455 Problem End stage renal disease N18.6 Active 60813710 Problem Abdominal pannus E65 Active 427136926 Problem Obese E66.9 Active 302558504 Problem Mixed dyslipidemia E78.2 Active 447054692 Problem Primary osteoarthritis of both knees M17.0 Active 964925614 Problem Obstructive sleep apnea G47.33 Active 53147247 ALLERGIES Substance Reaction Event Type Date Status Lisinopril cough Drug Allergy Apr, Active ENCOUNTERS Encounter Location Date Diagnosis [facility] [address] [address] Apr, [address] [address] Apr, [address] [address] Apr, [facility] [address] [place] [address] Apr, [facility] [address] [address] Apr, [address] [address] Apr, IMMUNIZATIONS No Known Immunizations SOCIAL HISTORY Never Assessed REASON FOR VISIT PLAN OF CARE VITAL SIGNS MEDICATIONS Medication Instructions Dosage Frequency Start Date End Date Duration Status Coreg 25 MG Orally 2 times a day as directed 12h 90 days Active Sevelamer Carbonate 800 MG TAKE 2 TABLETS BY MOUTH WITH EACH MEAL 30 Active Morphine Sulfate 15 MG Orally every 4 hrs prn 1 tablet as needed prior to dressing change or outing 30 days Active Aspirin 81 81 MG Orally Once a day 1 tablet 24h 30 day(s) Active Novolin R 100 UNIT/ML Injection 3 times a day before meals 15 units 30 days Active Gabapentin 300 MG Orally 3 times a day 1 capsule 8h 90 days Active Protonix 40 MG Orally Once a day 1 tablet 24h 90 days Active Oxycodone-Acetaminophen 7.5-325 MG Orally every 6 hrs 1-2 tablet as needed 6h 30 days Active Zocor 10 MG Orally Once a day 1 tablet in the evening 24h 90 days Active Tessalon Perles 100 MG Orally Three times a day 1 capsule as needed 8h 14 days Active Folic Acid 1 MG Orally Once a day 1 tablet 24h 90 days Active Norvasc 10 MG Orally Once a day 1 tablet 24h 90 days Active Lanthanum Carbonate 1000 MG Orally Twice a day 1 tablet with meals 12h 30 day(s) Active Colace 100 MG Orally 2 times a day 1 capsule as needed 12h 30 day(s) Active MiraLax - Orally Once a day 1 packet mixed with 8 ounces of fluid 24h 30 day(s) Active Catapres 0.1 MG Orally 3 times a day 1 tablet at bedtime 8h 30 day(s ) Active Novolin N 100 UNIT/ML Subcutaneous at bedtime 15 units 30 days Active RESULTS No Results PROCEDURES No Known procedures INSTRUCTIONS MEDICATIONS ADMINISTERED No Known Medications MEDICAL (GENERAL) HISTORY Type Description Date Medical History Abdominal pannus Medical History Benign essential HTN Medical History Blindness of both eyes Medical History Chronic diastolic heart failure Medical History Type 2 diabetes mellitus with diabetic chronic kidney disease , unspecified CKD stage, 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
[2018-06-20 10:04] LABS: CALCIUM 9.2 MG/DL (8.5-10.1); CREATININE SERUM 4.22 MG/DL (0.60-1.30); POTASSIUM 4.5 MMOL/L (3.6-5.0)
--- NOTE | 2018-06-20 10:17 | NUR ---
[facility] CALLED BY BRIAN Goncalves RN TO COME GET HER.
--- NOTE | 2018-06-20 10:43 | NUR ---
SEE LIST FOR CURRENT MEDS
[2018-06-20 10:44] VITALS: BP 127/72
== END 2018-06-20 12:15 | disposition home or self-care (01) ==
LOC: ER 09:32
DX: S31.109A Unspecified open wound of abdominal wall, unspecified quadrant without penetration into peritoneal cavity, initial encounter (principal); L08.9 Local infection of the skin and subcutaneous tissue, unspecified; I12.0 Hypertensive chronic kidney disease with stage 5 chronic kidney disease or end stage renal disease; N18.6 End stage renal disease; R09.02 Hypoxemia; E78.00 Pure hypercholesterolemia, unspecified; E11.42 Type 2 diabetes mellitus with diabetic polyneuropathy; K21.9 Gastro-esophageal reflux disease without esophagitis; E11.69 Type 2 diabetes mellitus with other specified complication; M86.9 Osteomyelitis, unspecified; D64.9 Anemia, unspecified; E11.22 Type 2 diabetes mellitus with diabetic chronic kidney disease; Z88.8 Allergy status to other drugs, medicaments and biological substances; Z79.82 Long term (current) use of aspirin; Z79.4 Long term (current) use of insulin; Z87.01 Personal history of pneumonia (recurrent); Z99.2 Dependence on renal dialysis
CPT/HCPCS: 36415; 80048; 85025; 99283

== ENCOUNTER 2018-07-05 07:55 | Outpatient (CLI) | payer MEDICARE ==
[2018-07-05] VITALS (8 sets, daily range): BP systolic 119–161; BP diastolic 56–74
[~2018-07-05] VITALS: Ht 167.6 cm; Wt 65.9 kg
[2018-07-05 14:09] LABS: HEMOGLOBIN 7.1 G/DL (11.5-16.0)
[2018-07-05 16:59] LABS: HEMOGLOBIN 10.3 G/DL (11.5-16.0)
== END 2018-07-05 17:40 | disposition home or self-care (01) ==
LOC: SDC 07:55
PROVIDERS: ATTEND Internal Medicine Nephrology
DX: E61.1 Iron deficiency (principal)
CPT/HCPCS: 36415; 36430; 85014; 85018; 86850; 86900; 86901; 86920

== ENCOUNTER 2018-08-02 07:55 | Outpatient (RCR) | payer MEDICARE ==
[~2018-08-02] VITALS: Ht 167.6 cm; Wt 65.9 kg
[2018-08-02] MEDS ORDERED: NS IV 500 ML 500 ML ONE (09:05)
[2018-08-02 09:25] VITALS: BP 157/73
[2018-08-02 09:40] VITALS: BP 150/81
[2018-08-02 11:25] VITALS: BP 157/79
[2018-08-02 11:45] VITALS: BP 154/76
[2018-08-02 13:24] VITALS: BP 168/84
[2018-08-02 13:43] LABS: HEMOGLOBIN 8.7 G/DL (11.5-16.0)
--- NOTE | 2018-08-02 13:49 | NUR ---
[facility]ONTENA[facility] NOTIFIED PT IS READY FOR DISCHARGE TO HOME.
[2018-08-02 14:15] VITALS: BP 175/76
== END 2018-08-02 14:15 | disposition home or self-care (01) ==
LOC: LAB 07:55 → SDC 14:15
PROVIDERS: ATTEND Nurse Practitioner Community Health
DX: D63.8 Anemia in other chronic diseases classified elsewhere (principal)
CPT/HCPCS: 36415; 36430; 85014; 85018; 86850; 86900; 86901; 86920

== ENCOUNTER 2018-11-25 20:43 | Emergency (ER) | payer MEDICARE, MEDICAID ==
[~2018-11-25] VITALS: Ht 167.6 cm; Wt 77.1 kg
[2018-11-25] MEDS ORDERED: BACITRACIN OINTMENT 28 GM TUBE ONE (21:38)
[2018-11-25 21:49] LABS: BASOPHILS % (AUTO) 0 % (0-10); EOSINOPHILS % (AUTO) 0 % (0-10); HEMATOCRIT 33 % (35-52); HEMOGLOBIN 10.2 G/DL (11.5-16.0); INR 1.3 (0.8-1.4); LYMPHOCYTES # (AUTO) 0.4 X 10^3 (1.0-4.0); LYMPHOCYTES % (AUTO) 6 % (12-44); MEAN CORPUSCULAR HEMOGLOBIN 30 PG (25-34); MEAN CORPUSCULAR HGB CONC 31 G/DL (32-36); MEAN CORPUSCULAR VOLUME 96 FL (80-99); MEAN PLATELET VOLUME 10.1 FL (7.4-10.4); MONOCYTES # (AUTO) 0.5 X 10^3 (0.0-1.0); MONOCYTES % (AUTO) 7 % (0-12); NEUTROPHILS # (AUTO) 5.9 X 10^3 (1.8-7.8); NEUTROPHILS % (AUTO) 87 % (42-75); PLATELET COUNT 132 10^3/uL (130-400); PROTHROMBIN TIME PATIENT 16.8 SEC (12.2-14.7); RED CELL DISTRIBUTION WIDTH 16.1 % (10.0-14.5); WHITE BLOOD COUNT 6.7 10^3/uL (4.3-11.0)
[2018-11-25 21:59] LABS: BILIRUBIN,TOTAL 0.4 MG/DL (0.1-1.0); CALCIUM 9.9 MG/DL (8.5-10.1); CREATININE SERUM 3.55 MG/DL (0.60-1.30); POTASSIUM 4.2 MMOL/L (3.6-5.0); TOTAL PROTEIN 7.7 GM/DL (6.4-8.2)
--- NOTE | 2018-11-25 22:00 | NUR ---
Approx 4cm ulcer noted to rt medial arteaga. Bacitracin oint, abd pads, and kerlix gauze drsg applied. Approx 1.5cm ulcer noted to lt anterior arteaga. Xeroform reinforced and covered with bandage. Lower medial abd ulcer noted to have packing in place. No redness or swelling noted to surrounding tissue. Provider in room during drsg change.
[2018-11-25] MEDS ORDERED: PIPERACILLIN/TAZOBACTAM (BULK) 4.5 GM in NS (IVPB) 100 ML IV ONE (22:30)
[2018-11-25 22:31] LABS: BAND NEUTROPHILS 7 %; NEUTROPHILS % (MANUAL) 78 %
[2018-11-25 22:32] LABS: LYMPHOCYTES % (MANUAL) 11 %; MONOCYTES % (MANUAL) 1 %; REACTIVE LYMPHOCYTES 3 %
[2018-11-25 22:33] LABS: RBC MORPH NORMAL
[2018-11-25] MEDS ORDERED: PIPERACILLIN/TAZO 4.5 GM VIAL (ZOSYN) IV ONE (22:39)
[2018-11-25] MEDS ORDERED: NS (IVPB) 100 ML ONE (22:40)
--- NOTE | 2018-11-25 22:43 | ED General ---
General Chief Complaint: Fever-Adult/Adol Stated Complaint: FEVER Nursing Triage Note: Pt to room #5 via w/c by [facility] staff with c/o fever. Ed staff assisted pt via w/c to ED cart. Pt a&ox4 with weakness noted. Pt reports non productive cough that has been going on for "a while." Reports discomfort to neck and back which pt reports to be chronic. Initial tympanic temp 100.4. Multiple dressings noted to bilat lower extremities and lower abd. Nursing Sepsis Screen: Possible Sepsis Risk Source of Information: Patient, Custodial Records, Old Records Exam Limitations: No Limitations History of Present Illness Date Seen by Provider: Nov 25, 2018 Time Seen by Provider: 21:34 Initial Comments This 58-year-old woman with end-stage renal failure on dialysis presents to the emergency room via EMS from [facility] in [place] with complaints of fever and cough today. Her temperature on arrival is 100.4. She has problems with chronic wounds on her legs and her abdomen. She receives wound care from Dr. Isaacs at [facility]. She has been diagnosed with calciphylaxis of the abdominal wall. Allergies and Home Medications Allergies Coded Allergies: lisinopril (Verified Allergy, Unknown, 05/15/18) Home Medications Amlodipine Besylate 10 Mg Tablet, 10 MG PO DAILY, (Reported) Ascorbic Acid 500 Mg Capsule, 500 MG PO DAILY, (Reported) Aspirin 325 Mg Tablet, 325 MG PO DAILY, (Reported) Carvedilol 25 Mg Tab, 25 MG PO BID, (Reported) Cholecalciferol 5,000 Unit Capsule, 5,000 UNIT PO DAILY, (Reported) Clonidine HCl 0.1 Mg Tablet, 0.1 MG PO TID, (Reported) Darbepoetin Jesus 200 Mcg/Ml Soln, 100 MCG SQ WEEK, (Reported) Docusate Sodium 100 Mg Capsule, 100 MG PO BID, (Reported) Folic Acid 1 Mg Tablet, 1 MG PO DAILY, (Reported) Gabapentin 100 Mg Capsule, 100 MG PO HS, (Reported) Hydrocodone Bit/Acetaminophen 1 Tab Tab, 1-2 TAB PO Q6H PRN for PAIN-MODERATE Prescribed by: DAVID PERKINS on 05/15/18 0811 Insulin Glargine,Hum.rec.anlog 100 Unit/1 Ml Insuln.pen, 4 UNIT SQ HS, (Reported) Insulin Lispro 100 Unit/1 Ml Insuln.pen, 0-14 UNIT SQ TID PRN for sliding scale, (Reported) Lanthanum Carbonate 1,000 Mg Powd.pack, 1,000 MG PO TIDWM, (Reported) Pantoprazole Sodium 40 Mg Tablet.dr, 40 MG PO DAILY, (Reported) Sevelamer Carbonate 800 Mg Tablet, 1,600 MG PO AC, (Reported) Simvastatin 10 Mg Tablet, 10 MG PO HS, (Reported) Patient Home Medication List Home Medication List Reviewed: Yes Review of Systems Review of Systems Constitutional: see HPI EENTM: no symptoms reported Respiratory: see HPI Cardiovascular: no symptoms reported Gastrointestinal: see HPI Genitourinary: see HPI : No Musculoskeletal: see HPI Skin: see HPI Psychiatric/Neurological: No Symptoms Reported Hematologic/Lymphatic: No Symptoms Reported Immunological/Allergic: no symptoms reported Past Qdiwego-Aqukws-Bemwex Hx Patient Social History Alcohol Use: Denies Use Recreational Drug Use: No Smoking Status: Former Smoker Type Used: Cigarettes 2nd Hand Smoke Exposure: No Recent Foreign Travel: No Contact w/Someone Who Travel: No Recent Infectious Disease Expo: No Recent Hopitalizations: Yes Immunizations Up To Date Tetanus Booster (TDap): Unknown PED Vaccines UTD: Yes Seasonal Allergies Seasonal Allergies: No Past Medical History Surgeries: Yes (fistula left upper extremity; ABDOMINAL WALL WOUND) Abdominal, Amputation, Dialysis, Tubal Ligation, Vascular Surgery Respiratory: Yes (CHRONIC HYPOXIA, uses 3 L by nasal cannula continuously) Pneumonia Cardiac: Yes (CALCIPHYLAXIS; CHF) Chronic Edema/Swelling, High Cholesterol, Hypertension Neurological: Yes (PERIPHERAL NEUROPATHY) Neuropathy 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 Genitourinary: Yes Renal Failure, Dialysis Gastrointestinal: Yes (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; ) Gastroesophageal Reflux Musculoskeletal: Yes (osteomyelitis) Endocrine: Yes (CALCIPHYLAXIS) Diabetes, Insulin dep, Hypothyroidsim HEENT: No Cancer: No Psychosocial: Yes Anxiety Integumentary: Yes Recent Skin Changes Blood Disorders: Yes (CHRONIC ANEMIA) Family Medical History No Pertinent Family Hx Physical Exam-Suspected Sepsis Physical Exam Vital Signs Vital Signs - First Documented Capillary Refill : Less Than 3 Seconds Blood Pressure Mean: 98 Height, Weight, BMI Height: 5'6.00" Weight: 170lbs. 4.0oz. 77.568781pa; 26.1 BMI Method:Stated General Appearance: WD/WN, Mild Distress (when moved) HEENT: PERRL/EOMI, Normal ENT Inspection Neck: Normal Inspection Respiratory: No Accessory Muscle Use, No Respiratory Distress, Crackles (bilateral bases) Cardiovascular: No Edema, No Murmur, Tachycardia (mild) Gastrointestinal: Soft, Other (chronic wounds without erythema or inflammation. There is odor coming from the dressings which have a dark discoloration.) Extremity: Other (there is mild edema to the lower extremities bilaterally. The right leg is wrapped. When unwrapped it demonstrates inflamed tissue on the anterior and lateral surface which is oozing. There is also a 4 cm wound on the medial superior aspect of the lower leg. The lower leg is quite warm. The left lower extremity is also mildly edematous and quite warm. There is a dressed wound on the anterior surface which was not taken down.) Neurologic/Psychiatric: Alert, Oriented x3, Other (somnolent) Skin: other (see above) Focused Exam Lactate Level 11/25/18 21:07: Lactic Acid Level 1.83 Lactic Acid Level Laboratory Tests Test 11/25/18 21:07 Lactic Acid Level 1.83 MMOL/L (0.50-2.00) Progress/Results/Core Measures Suspected Sepsis Recent Fever Within 48 Hours: Yes Infection Criteria Present: Suspected New Infection New/Unexplained Altered Menta: No Sepsis Screen: Possible Sepsis Risk SIRS Temperature:100.4 Pulse: 92 Respiratory Rate: 18 Laboratory Tests 11/25/18 21:07: White Blood Count 6.7 Blood Pressure 126 /84 Mean: 98 11/25/18 21:07: Lactic Acid Level 1.83 Laboratory Tests 11/25/18 21:07: Creatinine 3.55H, INR Comment 1.3, Platelet Count 132, Total Bilirubin 0.4 Results/Orders Lab Results Laboratory Tests Test 11/25/18 21:07 Range/Units White Blood Count 6.7 4.3-11.0 10^3/uL Red Blood Count 3.43 L 4.35-5.85 10^6/uL Hemoglobin 10.2 L 11.5-16.0 G/DL Hematocrit 33 L 35-52 % Mean Corpuscular Volume 96 80-99 FL Mean Corpuscular Hemoglobin 30 25-34 PG Mean Corpuscular Hemoglobin Concent 31 L 32-36 G/DL Red Cell Distribution Width 16.1 H 10.0-14.5 % Platelet Count 132 130-400 10^3/uL Mean Platelet Volume 10.1 7.4-10.4 FL Neutrophils (%) (Auto) 87 H 42-75 % Lymphocytes (%) (Auto) 6 L 12-44 % Monocytes (%) (Auto) 7 0-12 % Eosinophils (%) (Auto) 0 0-10 % Basophils (%) (Auto) 0 0-10 % Neutrophils # (Auto) 5.9 1.8-7.8 X 10^3 Lymphocytes # (Auto) 0.4 L 1.0-4.0 X 10^3 Monocytes # (Auto) 0.5 0.0-1.0 X 10^3 Eosinophils # (Auto) 0.0 0.0-0.3 10^3/uL Basophils # (Auto) 0.0 0.0-0.1 10^3/uL Neutrophils % (Manual) 78 % Lymphocytes % (Manual) 11 % Monocytes % (Manual) 1 % Band Neutrophils 7 % Reactive Lymphocytes 3 % Blood Morphology Comment NORMAL Prothrombin Time 16.8 H 12.2-14.7 SEC INR Comment 1.3 0.8-1.4 Activated Partial Thromboplast Time 37 H 24-35 SEC Sodium Level 139 135-145 MMOL/L Potassium Level 4.2 3.6-5.0 MMOL/L Chloride Level 94 L 98-107 MMOL/L Carbon Dioxide Level 27 21-32 MMOL/L Anion Gap 18 H 5-14 MMOL/L Blood Urea Nitrogen 23 H 7-18 MG/DL Creatinine 3.55 H 0.60-1.30 MG/DL Estimat Glomerular Filtration Rate 13 BUN/Creatinine Ratio 6 Glucose Level 116 H 70-105 MG/DL Lactic Acid Level 1.83 0.50-2.00 MMOL/L Calcium Level 9.9 8.5-10.1 MG/DL Corrected Calcium 10.7 H 8.5-10.1 MG/DL Total Bilirubin 0.4 0.1-1.0 MG/DL Aspartate Amino Transf (AST/SGOT) 15 5-34 U/L Alanine Aminotransferase (ALT/SGPT) 7 0-55 U/L Alkaline Phosphatase 268 H 40-136 U/L C-Reactive Protein High Sensitivity 4.46 H 0.00-0.50 MG/DL Total Protein 7.7 6.4-8.2 GM/DL Albumin 3.0 L 3.2-4.5 GM/DL Micro Results Microbiology 11/25/18 Influenza Types A,B Antigen (WOLF) - Final, Complete My Orders Orders - ZACHERY BRANTLEY MD Cbc With Automated Diff (11/25/18 21:34) Comprehensive Metabolic Panel (11/25/18 21:34) Blood Culture (11/25/18 21:34) Protime With Inr (11/25/18 21:34) Partial Thromboplastin Time (11/25/18 21:34) Chest 1 View, Ap/Pa Only (11/25/18 21:34) Ed Iv/Invasive Line Start (11/25/18 21:34) Ed Iv/Invasive Line Start (11/25/18 21:34) Vital Signs Adult Sepsis Patie Q15M (11/25/18 21:34) O2 (11/25/18 21:34) Remove Rings In Anticipation O (11/25/18 21:34) Lactic Acid Analyzer (11/25/18 21:34) Influenza A And B Antigens (11/25/18 21:34) Bacitracin Ointment (Bacitracin Ointment (11/25/18 21:38) Manual Differential (11/25/18 21:07) Hs C Reactive Protein (11/25/18 22:22) Bacitracin Ointment (Bacitracin Ointment (11/26/18 09:00) Piperacillin/Tazobactam (Bulk) (Zosyn In (11/25/18 22:30) Piperacillin Sodium/Tazobactam (Zosyn Vi (11/25/18 22:39) Ns (Ivpb) (Sodium Chloride 0.9% Ivpb Bag (11/25/18 22:40) Medications Given in ED Current Medications Medications Dose Ordered Sig/Jorge A Route Start Time Stop Time Status Last Admin Dose Admin Piperacillin Sod/ Tazobactam Sod 4.5 gm/Sodium Chloride 120 ml @ 240 mls/hr ONCE ONCE IV 11/25/18 22:30 11/25/18 22:59 DC 11/25/18 22:55 240 MLS/HR Vital Signs/I&O 11/25/18 11/25/18 11/25/18 20:46 20:46 23:56 Temp 100.4 98.9 Pulse 92 89 Resp 18 16 B/P (MAP) 126/84 (98) 136/69 (91) Pulse Ox 95 95 98 O2 Delivery Nasal Cannula Nasal Cannula Nasal Cannula O2 Flow Rate 3.00 3.00 3.00 11/26/18 00:00 Intake Total 120 ml Balance 120 ml Capillary Refill : Less Than 3 Seconds Blood Pressure Mean: 98 Progress Note : Time: 22:49 Progress Note Septic workup was pursued. There is questionable increased interstitial markings in the right mid lung which could represent pneumonia and would be consistent with her cough. Influenza screening was negative. Blood cultures and lactic acid were drawn. Zosyn was administered for initial antibiotic therapy. Skin wounds could also be a source of infection. Since patient initially had a heart rate greater than 90 and fever, she meets criteria for sepsis. She does not make urine, so a urine culture was not obtained. Leg wrappings were taken down and examined. They were rewrapped to using bacitracin ointment, Telfa, and ABD pads. Patient typically receives her tertiary care at [facility]. Case was discussed with Dr. Xavier, hospitalist on-call, who graciously accepted the patient. Diagnostic Imaging Diagonstic Imaging: Xray Plain Films/CT/US/NM/MRI: chest Comments Chest x-ray viewed by me and compared with prior. There seems to be a bit of increase in interstitial markings in the right midlung, possibly infiltrate. Report not yet available. Departure Impression Primary Impression: Sepsis Qualified Codes: A41.9 - Sepsis, unspecified organism Additional Impressions: Right middle lobe pneumonia Qualified Codes: J18.1 - Lobar pneumonia, unspecified organism Calciphylaxis Open leg wound Qualified Codes: S81.809A - Unspecified open wound, unspecified lower leg, initial encounter chronic abdominal wound End stage renal failure on dialysis Disposition: 02 XFER SHT-TRM HOSP Condition: Stable Transfer Time Spoke to Accepting Phy: 22:34 Transfer Progress Notes Transfer accepted by Dr. Xavier. Transfer Time: 23:56 Transfer Facility: [place], [place]. Method of Transfer: EMS Departure-Patient Inst. Referrals: SELFKELLI MD (PCP/Family) Primary Care Physician ZACHERY BRANTLEY MD Nov 25, 2018 22:43
--- NOTE | 2018-11-25 23:08 | NUR ---
Contacted BRYAN Montejo @ [facility] to make facility aware pt will be transferring to [facility] room #7078. BRYAN Montejo voices no questions or concerns. BRYAN Montejo reports she will make family aware.
--- NOTE | 2018-11-25 23:10 | NUR ---
Contacted MARINA Loo @ [facility] for pt report. Pt to room #3016 upon arrival.
[2018-11-25 23:56] VITALS: BP 136/69
--- NOTE | 2018-11-26 07:31 | Diagnostic Imaging Report ---
INDICATION: Fever, cough. COMPARISON: 05/03/2018 TECHNIQUE: Single radiograph of the chest dates 11/25/2018. FINDINGS: The cardiac silhouette is enlarged. Mild central pulmonary vascular congestion. Prominence of the pulmonary interstitium diffusely; however, significantly increased opacities are noted throughout the right lung, greatest within the right lung base. Small right pleural effusion is suspected. Probable trace left pleural effusion. No pneumothorax. Calcific densities overlying the bilateral shoulders are stable. No acute osseous abnormality. Surgical clips are seen overlying the left upper abdomen, stable. IMPRESSION: Bilateral pulmonary opacities with associated trace pleural effusions. Findings may relate to congestive heart failure with interstitial edema given prominence of the cardiac silhouette and pulmonary vasculature. Additional infiltrate such as pneumonia may be present, particularly within the right lung base. Recommend clinical correlation and radiographic followup. Dictated by: Dictated on workstation # [id number]
[2018-11-26] MEDS ORDERED: BACITRACIN OINTMENT 28 GM TUBE TOP SCH (09:00)
== END 2018-11-25 23:56 | disposition short-term general hospital (02) ==
LOC: EDUNIT# 20:43 → ER 20:44
DX: S81.809A Unspecified open wound, unspecified lower leg, initial encounter (principal); S31.109A Unspecified open wound of abdominal wall, unspecified quadrant without penetration into peritoneal cavity, initial encounter; E83.59 Other disorders of calcium metabolism; A41.9 Sepsis, unspecified organism; J18.1 Lobar pneumonia, unspecified organism; I13.2 Hypertensive heart and chronic kidney disease with heart failure and with stage 5 chronic kidney disease, or end stage renal disease; I50.9 Heart failure, unspecified; N18.6 End stage renal disease; E11.22 Type 2 diabetes mellitus with diabetic chronic kidney disease; E11.40 Type 2 diabetes mellitus with diabetic neuropathy, unspecified; R09.02 Hypoxemia; K21.9 Gastro-esophageal reflux disease without esophagitis; F41.9 Anxiety disorder, unspecified; E11.69 Type 2 diabetes mellitus with other specified complication; M86.9 Osteomyelitis, unspecified; Z99.81 Dependence on supplemental oxygen; Z99.2 Dependence on renal dialysis; Z88.8 Allergy status to other drugs, medicaments and biological substances; Z79.82 Long term (current) use of aspirin; Z79.4 Long term (current) use of insulin; Z87.891 Personal history of nicotine dependence; Z98.51 Tubal ligation status; X58.XXXA Exposure to other specified factors, initial encounter
CPT/HCPCS: 36415; 71045; 80053; 83605; 85007; 85027; 85610; 85730; 86141; 87040; 87186; 87804

== ENCOUNTER 2018-12-16 19:28 | Emergency (ER) | payer MEDICARE, MEDICAID ==
[~2018-12-16] VITALS: Ht 165 cm; Wt 68.0 kg
[2018-12-16] MEDS ORDERED: NS IV 1000 ML 1,000 ML IV SCH (19:41)
[2018-12-16] MEDS ORDERED: VANCOMYCIN INJECTION 1,000 MG in NS (IVPB) 250 ML IV ONE (19:45)
[2018-12-16] MEDS ORDERED: ACETAMINOPHEN 500 MG TAB (TYLENOL) PO PRN (19:45)
[2018-12-16 19:51] LABS: BASOPHILS % (AUTO) 0 % (0-10); EOSINOPHILS % (AUTO) 0 % (0-10); HEMATOCRIT 29 % (35-52); LYMPHOCYTES # (AUTO) 0.5 X 10^3 (1.0-4.0); LYMPHOCYTES % (AUTO) 16 % (12-44); MEAN CORPUSCULAR HEMOGLOBIN 30 PG (25-34); MEAN CORPUSCULAR HGB CONC 31 G/DL (32-36); MEAN CORPUSCULAR VOLUME 95 FL (80-99); MEAN PLATELET VOLUME 10.5 FL (7.4-10.4); MONOCYTES # (AUTO) 0.4 X 10^3 (0.0-1.0); MONOCYTES % (AUTO) 14 % (0-12); NEUTROPHILS % (AUTO) 70 % (42-75); PLATELET COUNT 99 10^3/uL (130-400); RED CELL DISTRIBUTION WIDTH 16.8 % (10.0-14.5); WHITE BLOOD COUNT 2.9 10^3/uL (4.3-11.0)
[2018-12-16 20:02] LABS: INR 1.5 (0.8-1.4); PROTHROMBIN TIME PATIENT 18.2 SEC (12.2-14.7)
[2018-12-16 20:10] LABS: ALBUMIN 2.9 GM/DL (3.2-4.5); BILIRUBIN,TOTAL 0.3 MG/DL (0.1-1.0); CALCIUM 9.5 MG/DL (8.5-10.1); CREATININE SERUM 3.77 MG/DL (0.60-1.30); MAGNESIUM 1.9 MG/DL (1.6-2.4); POTASSIUM 4.8 MMOL/L (3.6-5.0); TOTAL PROTEIN 7.5 GM/DL (6.4-8.2)
[2018-12-16] MEDS: CEFEPIME INJECTION 1,000 MG in WATER (STERILE) FOR INJECTION 10 ML IV ONE ×2 (20:19→20:21)
--- NOTE | 2018-12-16 20:33 | Diagnostic Imaging Report ---
INDICATION: Nausea, emesis and fever Upright portable AP view of the chest is obtained with comparison made to the study of 11/25/2018. There is suboptimal inspiration on current study. There is mild cardiomegaly. There is mild persistent density seen in the lower lobe of the right lung with mild blunting of the right costophrenic sulcus. Overall these findings are stable or slightly improved. There is no pneumothorax or new infiltrate. IMPRESSION: Mild residual abnormal density in the lower half of the right hemithorax is stable or mildly improved compared to 11/25/2018 study. Dictated by: Dictated on workstation # [id number]
--- NOTE | 2018-12-16 21:16 | NUR ---
ASSUMED CARE OF THIS PATIENT AT THIS TIME REPORT GIVEN BY ATILIO GRAY
[2018-12-16] MEDS ORDERED: DEXTROSE 50% 50 ML (IMS) SYR ONE (22:24)
[2018-12-16 22:34] VITALS: BP 141/64
[2018-12-16] MEDS ORDERED: DEXTROSE 50% 50 ML (IMS) SYR IV ONE (22:45)
--- NOTE | 2019-01-26 23:04 | ED General ---
General Chief Complaint: Fever-Adult/Adol Stated Complaint: N,V,FEVER Nursing Triage Note: patient sent for evaluation after patient was found to have fever of above 100. Patient states that she was admitted recently and was told she was 'septic' patient also reports that she had antibiotics IV until 4 days ago Nursing Sepsis Screen: No Definite Risk Source of Information: EMS, Snf Records, Old Records Exam Limitations: Other (PT IS EXTREMELY POOR HISTORIAN) History of Present Illness Date Seen by Provider: Dec 16, 2018 Time Seen by Provider: 19:40 Initial Comments PT ARRIVES VIA EMS FROM [facility] PT NOTED TO HAVE FEVER OF 101, SO SENT TO ER PT HAS A PICC LINE IN PLACE, FOR REPORTEDLY RECENT "SEPSIS", BUT PT REPORTEDLY HAS NOT HAD ANY ANTIBIOTICS FOR 4 DAYS PT DOES NOT KNOW WHERE SHE WAS RECENTLY ADMITTED, OR WHAT SHE WAS BEING TREATED FOR OR WHERE SHE HAD AN INFECTION PT IS UNABLE TO GIVE ANY RELIABLE INFORMATION APPEARS THAT PT WAS SEEN HERE 11/25/18 AND TRANSFERRED TO [facility] FOR SEPSIS, POSSIBLY FROM LEG CELLULITIS PT HAS RIGHT LEG WOUNDS/ULCERS PACKED AND DRESSINGS IN PLACE. BOTH LEGS APPEAR TO BE VERY ERYTHEMATOUS AND WARM PT APPARENTLY WAS BEING TREATED BY DR. WILKS FOR WOUND CARE PT HAS ESRD ON DIALYSIS. PT DOES NOT MAKE URINE PCP: DR. IRIZARRY, HAD BEEN DR. PRAJAPATI PRIOR TO LONGTERM PLACEMENT Allergies and Home Medications Allergies Coded Allergies: lisinopril (Verified Allergy, Unknown, 05/15/18) Home Medications Amlodipine Besylate 10 Mg Tablet, 10 MG PO DAILY, (Reported) Ascorbic Acid 500 Mg Capsule, 500 MG PO DAILY, (Reported) Aspirin 325 Mg Tablet, 325 MG PO DAILY, (Reported) Carvedilol 25 Mg Tab, 25 MG PO BID, (Reported) Cholecalciferol 5,000 Unit Capsule, 5,000 UNIT PO DAILY, (Reported) Clonidine HCl 0.1 Mg Tablet, 0.1 MG PO TID, (Reported) Darbepoetin Jesus 200 Mcg/Ml Soln, 100 MCG SQ WEEK, (Reported) Docusate Sodium 100 Mg Capsule, 100 MG PO BID, (Reported) Folic Acid 1 Mg Tablet, 1 MG PO DAILY, (Reported) Gabapentin 100 Mg Capsule, 100 MG PO HS, (Reported) Hydrocodone Bit/Acetaminophen 1 Tab Tab, 1-2 TAB PO Q6H PRN for PAIN-MODERATE Prescribed by: DAVID PERKINS on 05/15/18 0811 Insulin Glargine,Hum.rec.anlog 100 Unit/1 Ml Insuln.pen, 4 UNIT SQ HS, (Reported) Insulin Lispro 100 Unit/1 Ml Insuln.pen, 0-14 UNIT SQ TID PRN for sliding scale, (Reported) Lanthanum Carbonate 1,000 Mg Powd.pack, 1,000 MG PO TIDWM, (Reported) Pantoprazole Sodium 40 Mg Tablet.dr, 40 MG PO DAILY, (Reported) Sevelamer Carbonate 800 Mg Tablet, 1,600 MG PO AC, (Reported) Simvastatin 10 Mg Tablet, 10 MG PO HS, (Reported) Patient Home Medication List Home Medication List Reviewed: Yes Review of Systems Review of Systems Constitutional: fever Musculoskeletal: see HPI Skin: see HPI Past Xezaeqk-Hrrvje-Lyebji Hx Past Med/Social Hx: Reviewed and Corrections made Patient Social History Smoking Status: Unknown if Ever Smoked Type Used: Cigarettes 2nd Hand Smoke Exposure: No Recent Foreign Travel: No Contact w/Someone Who Travel: No Recent Infectious Disease Expo: No Recent Hopitalizations: Yes Physical Abuse: No Sexual Abuse: No Immunizations Up To Date Tetanus Booster (TDap): Unknown PED Vaccines UTD: Yes Seasonal Allergies Seasonal Allergies: No Past Medical History Surgeries: Yes (A-V DIALYSIS GRAFT/fistula left upper extremity; ABDOMINAL WALL WOUND) Abdominal, Amputation, Dialysis, Tubal Ligation, Vascular Surgery Respiratory: Yes (CHRONIC HYPOXIA, uses 3 L by nasal cannula continuously) Pneumonia Cardiac: Yes (CALCIPHYLAXIS; CHF) Chronic Edema/Swelling, High Cholesterol, Hypertension Neurological: Yes (PERIPHERAL NEUROPATHY) Neuropathy 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: 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 Genitourinary: Yes Renal Failure, Dialysis Gastrointestinal: Yes (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; ) Gastroesophageal Reflux Musculoskeletal: Yes (OSTEOMYELITIS; CHRONIC GENERALIZED WEAKNESS AND PAIN ) Endocrine: Yes (CALCIPHYLAXIS) Diabetes, Insulin dep, Hypothyroidsim HEENT: No Cancer: No Psychosocial: Yes Anxiety Integumentary: Yes (CHRONIC LEG WOUNDS/LEG CELLULITIS; OPEN ABDOMINAL WOUND DUE TO CALCIPHYLAXIS) Blood Disorders: Yes (CHRONIC ANEMIA) Family Medical History No Pertinent Family Hx SEPSIS DUE TO PSEUDOMONAS Physical Exam Vital Signs Capillary Refill : Less Than 3 Seconds Height, Weight, BMI Height: 5'6.00" Weight: 170lbs. 4.0oz. [id number]; 24.00 BMI Method:Stated General Appearance: No Apparent Distress, Obese, Other (VERY MALODOROUS; KEEPS EYES CLOSED AT ALL TIMES) Respiratory: Normal Breath Sounds, No Accessory Muscle Use, No Respiratory Distress, Decreased Breath Sounds (IN BASES BILATERALLY) Cardiovascular: Regular Rate, Rhythm, No JVD, No Murmur Gastrointestinal: Soft Extremity: Other (KEEPS KNEES FLEXED AT 30-45 DEGREES; BILATERAL LOWER LEGS WITH ERYTHEMA AND WARMTH, RIGHT LEG WITH ULCERATIONS THAT HAVE PACKING IN PLACE AND DRESSINGS IN PLACE. NO OBVIOUS WOUNDS OR ANY DRESSINGS ON LEFT LEG. ) Neurologic/Psychiatric: Alert (BUT LETHARGIC. ), Other (PT NOT WANTING TO TALK OR FOLLOW COMMANDS. ) Skin: Normal Color, Warm/Dry, Other ( ABOVE) Progress/Results/Core Measures Suspected Sepsis Recent Fever Within 48 Hours: Yes Infection Criteria Present: Documented Infection New/Unexplained Altered Menta: No Sepsis Screen: No Definite Risk SIRS Temperature: Pulse: 82 Respiratory Rate: 17 Blood Pressure 141 /64 Mean: 91 Results/Orders Vital Signs/I&O Capillary Refill : Less Than 3 Seconds Blood Pressure Mean: 91 POS Point of Care Testing Finger Stick Blood Glucose: 66 Progress Note : Progress Note NO DETERIORATION IN PT'S CONDITION DURING ER STAY ECG Initial ECG Impression Date: Dec 16, 2018 Initial ECG Impression Time: 20:12 Initial ECG Rate: 87 Initial ECG Rhythm: Normal Sinus Initial ECG Impression: Nonspecific Changes, 1st Degree AV Block Diagnostic Imaging Comments CXR--MILD RESIDUAL DENSITY RIGHT RIGHT LOWER HALF OF CHEST, STABLE/SLIGHTLY IMPROVED--PER RADIOLOGIST REPORT AT 2039 Reviewed: Reviewed by Me Departure Communication (Admissions) 2049--CALLED [facility], WILL CALL BACK 2106--SPOKE WITH DR. BANSAL, ACCEPTS PT FOR ADMIT/TRANSFER. Impression Primary Impression: Sepsis Additional Impressions: Bilateral lower leg cellulitis CHRONIC RIGHT LEG ULCERS ESRD (end stage renal disease) on dialysis RLL INFILTRATE Pancytopenia IDDM (insulin dependent diabetes mellitus) Disposition: XFER SHT-TRM HOSP Condition: Improved Transfer Transfer Reason: Exceeds level of care Method of Transfer: EMS Departure-Patient Inst. Referrals: SELF,KELLI BELL (PCP) Primary Care Physician TAL LOMAX DO Jan 26, 2019 23:04 POS
== END 2018-12-16 22:34 | disposition short-term general hospital (02) ==
LOC: EDUNIT# 19:28 → ER 19:30
DX: A41.9 Sepsis, unspecified organism (principal); R65.20 Severe sepsis without septic shock; L03.115 Cellulitis of right lower limb; L03.116 Cellulitis of left lower limb; E11.22 Type 2 diabetes mellitus with diabetic chronic kidney disease; I13.2 Hypertensive heart and chronic kidney disease with heart failure and with stage 5 chronic kidney disease, or end stage renal disease; N18.6 End stage renal disease; I50.9 Heart failure, unspecified; E11.622 Type 2 diabetes mellitus with other skin ulcer; L97.919 Non-pressure chronic ulcer of unspecified part of right lower leg with unspecified severity; R91.8 Other nonspecific abnormal finding of lung field; D61.818 Other pancytopenia; E11.42 Type 2 diabetes mellitus with diabetic polyneuropathy; E78.00 Pure hypercholesterolemia, unspecified; K21.9 Gastro-esophageal reflux disease without esophagitis; E03.9 Hypothyroidism, unspecified; D64.9 Anemia, unspecified; F41.9 Anxiety disorder, unspecified; Z99.2 Dependence on renal dialysis; Z88.8 Allergy status to other drugs, medicaments and biological substances; Z79.82 Long term (current) use of aspirin; Z79.4 Long term (current) use of insulin; Z98.51 Tubal ligation status
CPT/HCPCS: 36415; 71045; 80053; 82150; 82962; 83605; 83690; 83735; 85025; 85610; 85730; 87040; 87077; 87186; 87804; 93005; 96361; 96365; 96367; 96375

== ENCOUNTER 2019-02-12 10:07 | Emergency (ER) | payer MEDICARE, MEDICAID ==
[~2019-02-12] VITALS: Ht 165 cm; Wt 75.0 kg
[2019-02-12] MEDS ORDERED: ONDANSETRON 4 MG/2 ML (SDV) Z0FRAN ONE (10:18)
[2019-02-12 10:24] LABS: BASOPHILS % (AUTO) 0 % (0-10); EOSINOPHILS % (AUTO) 0 % (0-10); HEMATOCRIT 24 % (35-52); HEMOGLOBIN 7.5 G/DL (11.5-16.0); LYMPHOCYTES # (AUTO) 0.4 X 10^3 (1.0-4.0); LYMPHOCYTES % (AUTO) 9 % (12-44); MEAN CORPUSCULAR HEMOGLOBIN 28 PG (25-34); MEAN CORPUSCULAR HGB CONC 31 G/DL (32-36); MEAN CORPUSCULAR VOLUME 92 FL (80-99); MEAN PLATELET VOLUME 10.6 FL (7.4-10.4); MONOCYTES # (AUTO) 0.4 X 10^3 (0.0-1.0); MONOCYTES % (AUTO) 9 % (0-12); NEUTROPHILS % (AUTO) 81 % (42-75); PLATELET COUNT 93 10^3/uL (130-400); RED CELL DISTRIBUTION WIDTH 15.9 % (10.0-14.5); WHITE BLOOD COUNT 3.8 10^3/uL (4.3-11.0)
[2019-02-12 10:42] LABS: INR 1.7 (0.8-1.4); PROTHROMBIN TIME PATIENT 20.4 SEC (12.2-14.7)
[2019-02-12 10:44] LABS: ALBUMIN 2.3 GM/DL (3.2-4.5); BILIRUBIN,TOTAL 0.4 MG/DL (0.1-1.0); CREATININE SERUM 5.29 MG/DL (0.60-1.30); TOTAL PROTEIN 6.2 GM/DL (6.4-8.2)
[2019-02-12] MEDS ORDERED: DEXTROSE 50% 50 ML (IMS) SYR ONE (10:49)
[2019-02-12] MEDS ORDERED: DEXTROSE 50% 50 ML (IMS) SYR IV ONE ×2 (11:00→13:15)
--- NOTE | 2019-02-12 11:34 | Diagnostic Imaging Report ---
INDICATION: Fever and confusion, renal failure. COMPARISON: 12/16/2018. FINDINGS: The magnitude and configuration of cardiomegaly is not significantly changed from prior. There is however increased distention of the central pulmonary venous structures and some perihilar pulmonary opacities which are likely edema but could reflect pneumonia in the appropriate scenario. There also is a small right pleural effusion and an elevated right diaphragm, not notably changed. IMPRESSION: Similar cardiomegaly but increased vascular congestion and likely mild perihilar edema versus pneumonia. Similar small right pleural effusion. Dictated by: Dictated on workstation # [id number]
--- NOTE | 2019-02-12 12:25 | ED General ---
General Chief Complaint: Fever-Adult/Adol Stated Complaint: LETHARGY;FEVER Nursing Triage Note: PT ARRIVED PER EMS FROM [place], PT HAS HAD LOW GRADE FEVER AND CONFUSION AT TIMES, PT MISSED DIALYSIS YESTERDAY PT UNABLE TO REMEBER WHY. PT HAS LOWER EXT WRAPPED D/T WEEPING. PT HAS DIALYSIS SHUNT IN L ARM, IV IN PLACE #20 PER EMS. PT WEARING O2@2LPER N/C Nursing Sepsis Screen: No Definite Risk Source of Information: Patient, Residential Records, Old Records Exam Limitations: No Limitations History of Present Illness Date Seen by Provider: Feb 12, 2019 Time Seen by Provider: 10:17 Initial Comments This 58-year-old woman presents to the emergency room via EMS from [facility] in [place], [place], because of confusion and "lethargy". Symptoms reportedly started yesterday. Patient has been slumping over and intermittently confused. long term staff reports she is normally alert and oriented. She has been afebrile with a temperature of 99.4 at the halfway. She is afebrile on assessment as well. long term staff reported her blood sugar was 64 this morning because she has not been eating well in recent days. With oral treatment she improved her blood sugar to 86. This morning she was confused and taking her clothes off for no particular reason. Yesterday she refused dialysis. long term reported her oxygen saturation was 85 percent on 2 L nasal cannula. She has wounds on her legs and wounds on her right leg are dressed. She was scheduled to see wound care today. Patient would not allow me to take down her dressings to examine her leg. She has had extensive wound care by Dr. 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 Patient is on dialysis and makes very little urine. Patient complains of soreness around the coccyx. Allergies and Home Medications Allergies Coded Allergies: lisinopril (Verified Allergy, Unknown, 05/15/18) Home Medications Amlodipine Besylate 10 Mg Tablet, 10 MG PO DAILY, (Reported) Ascorbic Acid 500 Mg Capsule, 500 MG PO DAILY, (Reported) Aspirin 325 Mg Tablet, 325 MG PO DAILY, (Reported) Carvedilol 25 Mg Tab, 25 MG PO BID, (Reported) Cholecalciferol 5,000 Unit Capsule, 5,000 UNIT PO DAILY, (Reported) Clonidine HCl 0.1 Mg Tablet, 0.1 MG PO TID, (Reported) Darbepoetin Jesus 200 Mcg/Ml Soln, 100 MCG SQ WEEK, (Reported) Docusate Sodium 100 Mg Capsule, 100 MG PO BID, (Reported) Folic Acid 1 Mg Tablet, 1 MG PO DAILY, (Reported) Gabapentin 100 Mg Capsule, 100 MG PO HS, (Reported) Hydrocodone Bit/Acetaminophen 1 Tab Tab, 1-2 TAB PO Q6H PRN for PAIN-MODERATE Prescribed by: DAVID PERKINS on 05/15/18 0811 Insulin Glargine,Hum.rec.anlog 100 Unit/1 Ml Insuln.pen, 4 UNIT SQ HS, (Reported) Insulin Lispro 100 Unit/1 Ml Insuln.pen, 0-14 UNIT SQ TID PRN for sliding scale, (Reported) Lanthanum Carbonate 1,000 Mg Powd.pack, 1,000 MG PO TIDWM, (Reported) Pantoprazole Sodium 40 Mg Tablet.dr, 40 MG PO DAILY, (Reported) Sevelamer Carbonate 800 Mg Tablet, 1,600 MG PO AC, (Reported) Simvastatin 10 Mg Tablet, 10 MG PO HS, (Reported) Patient Home Medication List Home Medication List Reviewed: Yes Review of Systems Review of Systems Constitutional: see HPI EENTM: no symptoms reported Respiratory: see HPI Cardiovascular: no symptoms reported Gastrointestinal: no symptoms reported Genitourinary: see HPI : No Musculoskeletal: no symptoms reported Skin: see HPI Psychiatric/Neurological: See HPI Hematologic/Lymphatic: No Symptoms Reported Immunological/Allergic: no symptoms reported Past Oujvayk-Gcppzx-Qabucj Hx Past Med/Social Hx: Reviewed and Corrections made Patient Social History Alcohol Use: Denies Use Recreational Drug Use: No Smoking Status: Former Smoker Type Used: Cigarettes 2nd Hand Smoke Exposure: No Recent Foreign Travel: No Contact w/Someone Who Travel: No Recent Infectious Disease Expo: No Recent Hopitalizations: No Immunizations Up To Date Tetanus Booster (TDap): Unknown PED Vaccines UTD: Yes Seasonal Allergies Seasonal Allergies: No Past Medical History Surgeries: Yes (A-V DIALYSIS GRAFT/fistula left upper extremity; ABDOMINAL WALL WOUND) Abdominal, Amputation, Dialysis, Tubal Ligation, Vascular Surgery Respiratory: Yes (CHRONIC HYPOXIA, uses 3 L by nasal cannula continuously) Pneumonia Cardiac: Yes (CALCIPHYLAXIS; CHF) Chronic Edema/Swelling, High Cholesterol, Hypertension Neurological: Yes (PERIPHERAL NEUROPATHY) Neuropathy 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 Genitourinary: Yes Renal Failure, Dialysis Gastrointestinal: Yes (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; ) Gastroesophageal Reflux Musculoskeletal: Yes (OSTEOMYELITIS; CHRONIC GENERALIZED WEAKNESS AND PAIN ) Endocrine: Yes (CALCIPHYLAXIS) Diabetes, Insulin dep, Hypothyroidsim HEENT: No Cancer: No Psychosocial: Yes Anxiety Integumentary: Yes (calciphylaxis of the abdominal wall) Recent Skin Changes Blood Disorders: Yes (CHRONIC ANEMIA) Family Medical History No Pertinent Family Hx SEPSIS DUE TO PSEUDOMONAS Physical Exam Vital Signs Vital Signs - First Documented 02/12/19 10:15 Temp 37.4 Pulse 83 Resp 16 B/P (MAP) 109/55 (73) Pulse Ox 93 O2 Delivery Nasal Cannula O2 Flow Rate 2.00 Capillary Refill : Less Than 3 Seconds Height, Weight, BMI Height: 5'6.00" Weight: 170lbs. 4.0oz. 77.566842gj; 27.00 BMI Method:Stated General Appearance: No Apparent Distress, Other (somnolent, frail-appearing) HEENT: PERRL/EOMI, Normal ENT Inspection Neck: Normal Inspection Respiratory: Lungs Clear, Normal Breath Sounds Cardiovascular: Regular Rate, Rhythm, No Edema, No Murmur Gastrointestinal: Normal Bowel Sounds, Non Tender, Soft Back: Other (tenderness and mild erythema over the lower sacrum) Extremity: Other (edema, erythema, and tenderness of the lower legs and feet bilaterally. There is yellowish drainage on the dressing of the right lower extremity. Patient did not allow me to remove her dressing.) Neurologic/Psychiatric: Alert (level of alertness is waxing and waning), No Motor/Sensory Deficits, Normal Mood/Affect, lens gauger II-XII Norm as Tested, Other (patient is intermittently confused and gives an accurate history) Skin: Other (see extremity exam above) Focused Exam Lactate Level 02/12/19 10:15: Lactic Acid Level 0.89 Lactic Acid Level Progress/Results/Core Measures Suspected Sepsis Recent Fever Within 48 Hours: Yes Infection Criteria Present: Suspected New Infection New/Unexplained Altered Menta: Yes Sepsis Screen: No Definite Risk SIRS Temperature: Pulse: 83 Respiratory Rate: 16 Laboratory Tests 02/12/19 10:15: White Blood Count 3.8L Blood Pressure 109 /55 Mean: 73 02/12/19 10:15: Lactic Acid Level 0.89 Laboratory Tests 02/12/19 10:15: Creatinine 5.29H, INR Comment 1.7H, Platelet Count 93L, Total Bilirubin 0.4 Results/Orders Lab Results Laboratory Tests Test 02/12/19 10:15 02/12/19 11:30 02/12/19 13:09 02/12/19 13:49 Range/Units White Blood Count 3.8 L 4.3-11.0 10^3/uL Red Blood Count 2.64 L 4.35-5.85 10^6/uL Hemoglobin 7.5 L 11.5-16.0 G/DL Hematocrit 24 L 35-52 % Mean Corpuscular Volume 92 80-99 FL Mean Corpuscular Hemoglobin 28 25-34 PG Mean Corpuscular Hemoglobin Concent 31 L 32-36 G/DL Red Cell Distribution Width 15.9 H 10.0-14.5 % Platelet Count 93 L 130-400 10^3/uL Mean Platelet Volume 10.6 H 7.4-10.4 FL Neutrophils (%) (Auto) 81 H 42-75 % Lymphocytes (%) (Auto) 9 L 12-44 % Monocytes (%) (Auto) 9 0-12 % Eosinophils (%) (Auto) 0 0-10 % Basophils (%) (Auto) 0 0-10 % Neutrophils # (Auto) 3.0 1.8-7.8 X 10^3 Lymphocytes # (Auto) 0.4 L 1.0-4.0 X 10^3 Monocytes # (Auto) 0.4 0.0-1.0 X 10^3 Eosinophils # (Auto) 0.0 0.0-0.3 10^3/uL Basophils # (Auto) 0.0 0.0-0.1 10^3/uL Prothrombin Time 20.4 H 12.2-14.7 SEC INR Comment 1.7 H 0.8-1.4 Activated Partial Thromboplast Time 42 H 24-35 SEC Sodium Level 134 L 135-145 MMOL/L Potassium Level 5.0 3.6-5.0 MMOL/L Chloride Level 93 L 98-107 MMOL/L Carbon Dioxide Level 27 21-32 MMOL/L Anion Gap 14 5-14 MMOL/L Blood Urea Nitrogen 43 H 7-18 MG/DL Creatinine 5.29 H 0.60-1.30 MG/DL Estimat Glomerular Filtration Rate 8 BUN/Creatinine Ratio 8 Glucose Level 50 *L 70-105 MG/DL Lactic Acid Level 0.89 0.50-2.00 MMOL/L Calcium Level 9.0 8.5-10.1 MG/DL Corrected Calcium 10.4 H 8.5-10.1 MG/DL Total Bilirubin 0.4 0.1-1.0 MG/DL Aspartate Amino Transf (AST/SGOT) 14 5-34 U/L Alanine Aminotransferase (ALT/SGPT) 6 0-55 U/L Alkaline Phosphatase 209 H 40-136 U/L C-Reactive Protein High Sensitivity 19.45 H 0.00-0.50 MG/DL Total Protein 6.2 L 6.4-8.2 GM/DL Albumin 2.3 L 3.2-4.5 GM/DL Glucometer 79 62 L 123 H 70-110 MG/DL Micro Results Microbiology 02/12/19 Blood Culture - Preliminary, Resulted Probable Pseudomonas See Comments 02/12/19 Blood Culture - Preliminary, Resulted Probable Pseudomonas See Comments 02/12/19 Influenza Types A,B Antigen (WOLF) - Final, Complete My Orders Orders - ZACHERY BRANTLEY MD Cbc With Automated Diff (02/12/19 10:17) Comprehensive Metabolic Panel (02/12/19 10:17) Blood Culture (02/12/19 10:17) Protime With Inr (02/12/19 10:17) Partial Thromboplastin Time (02/12/19 10:17) Chest 1 View, Ap/Pa Only (02/12/19 10:17) Ed Iv/Invasive Line Start (02/12/19 10:17) Ed Iv/Invasive Line Start (02/12/19 10:17) Vital Signs Adult Sepsis Patie Q15M (02/12/19 10:17) O2 (02/12/19 10:17) Remove Rings In Anticipation O (02/12/19 10:17) Lactic Acid Analyzer (02/12/19 10:17) Influenza A And B Antigens (02/12/19 10:17) Ondansetron Injection (Zofran Injectio (02/12/19 10:18) D50w (Emergency) Syringe (Dextrose 50% 5 (02/12/19 11:00) D50w (Emergency) Syringe (Dextrose 50% 5 (02/12/19 10:49) Accucheck Stat ONCE (02/12/19 11:11) Hs C Reactive Protein (02/12/19 12:11) Piperacillin/Tazobactam (Bulk) (Zosyn In (02/12/19 13:00) Accucheck Stat ONCE (02/12/19 13:04) D50w (Emergency) Syringe (Dextrose 50% 5 (02/12/19 13:15) Medications Given in ED Vital Signs/I&O 02/13/19 00:00 Intake Total 110 ml Balance 110 ml Capillary Refill : Less Than 3 Seconds Blood Pressure Mean: 73 POS Point of Care Testing Finger Stick Blood Glucose: 79 Blood Glucose Action Taken: REPORTED TO DR Goncalves Progress Note : Time: 13:18 Progress Note Sepsis workup was pursued as a precaution. Blood sugar returned as 50. 25 ML of D50 was administered which recovered her blood sugar to 79. A repeat check later revealed a blood sugar of 69. A repeat dose of D50 is being given. WBC and temperature did not suggest an infection. However, a CRP was notably elevated at 19. I discussed the case with at [facility] in [place]. He agrees with transfer and graciously accepts this patient's case. He advised administering Zosyn 2.25 g for empiric treatment of possible bacterial infection. Patient requires transfer for dialysis and further evaluation and a facility with nephrology services. She may need a transfusion but will need dialysis along with that. She needs her wounds addressed as well but declined to have me evaluate her wounds here. Oxygen saturations in was maintained near 100 percent on 3 L nasal cannula. Diagnostic Imaging Diagonstic Imaging: Xray Plain Films/CT/US/NM/MRI: chest Comments Chest x-ray viewed by me and report reviewed. Compared with prior. See report below. NAME: [facility] REC#: [id number] PT STATUS: REG ER : 1960 PHYSICIAN: ZACHERY BRANTLEY MD ADMIT DATE: 02/12/19/ER Draft Date of Exam:02/12/19 CHEST 1 VIEW, AP/PA ONLY INDICATION: Fever and confusion, renal failure. COMPARISON: 12/16/2018. FINDINGS: The magnitude and configuration of cardiomegaly is not significantly changed from prior. There is however increased distention of the central pulmonary venous structures and some perihilar pulmonary opacities which are likely edema but could reflect pneumonia in the appropriate scenario. There also is a small right pleural effusion and an elevated right diaphragm, not notably changed. IMPRESSION: Similar cardiomegaly but increased vascular congestion and likely mild perihilar edema versus pneumonia. Similar small right pleural effusion. Dictated on workstation # [id number] Dict: 02/12/19 1130 Trans: 02/12/19 1133 [id number] Interpreted by: LASHONDA VILLAREAL Departure Impression Primary Impression: Altered mental status Qualified Codes: R41.82 - Altered mental status, unspecified Additional Impressions: Hypoglycemia Leg wound, right Qualified Codes: S81.801A - Unspecified open wound, right lower leg, initial encounter Hypoxia End stage renal failure on dialysis Disposition: 02 XFER SHT-TRM HOSP Condition: Improved Transfer Transfer Reason: Exceeds level of care Time Spoke to Accepting Phy: 12:45 Transfer Progress Notes Transfer accepted by Dr. Sharma at [facility]. Transfer Time: 13:50 Transfer Facility: [facility] [place] Method of Transfer: EMS Departure-Patient Inst. Referrals: KELLI PRAJAPATI MD (PCP/Family) Primary Care Physician ZACHERY BRANTLEY MD Feb 12, 2019 12:25 POS
[2019-02-12] MEDS ORDERED: PIPERACILLIN/TAZOBACTAM (BULK) 2.25 GM in NS (IVPB) 100 ML IV ONE (13:00)
--- NOTE | 2019-02-12 13:03 | NUR ---
[facility] NOTIFIED OF TRANSFER
--- NOTE | 2019-02-12 13:20 | NUR ---
PT SIGNED CONSENT FORM
[2019-02-12 13:51] VITALS: BP 134/65
== END 2019-02-12 13:50 | disposition short-term general hospital (02) ==
LOC: EDUNIT# 10:07 → ER 10:08
DX: S81.801A Unspecified open wound, right lower leg, initial encounter (principal); E11.649 Type 2 diabetes mellitus with hypoglycemia without coma; E11.22 Type 2 diabetes mellitus with diabetic chronic kidney disease; I12.0 Hypertensive chronic kidney disease with stage 5 chronic kidney disease or end stage renal disease; N18.6 End stage renal disease; R41.82 Altered mental status, unspecified; R09.02 Hypoxemia; E11.40 Type 2 diabetes mellitus with diabetic neuropathy, unspecified; E78.00 Pure hypercholesterolemia, unspecified; F41.9 Anxiety disorder, unspecified; D64.9 Anemia, unspecified; K21.9 Gastro-esophageal reflux disease without esophagitis; E03.9 Hypothyroidism, unspecified; Z99.2 Dependence on renal dialysis; Z88.8 Allergy status to other drugs, medicaments and biological substances; Z79.82 Long term (current) use of aspirin; Z79.4 Long term (current) use of insulin; Z87.891 Personal history of nicotine dependence; Z98.51 Tubal ligation status; Z99.81 Dependence on supplemental oxygen
CPT/HCPCS: 36415; 71045; 80053; 82962; 83605; 85025; 85610; 85730; 86141; 87040; 87077; 87804; 96365; 96375; 96376

== ENCOUNTER 2019-02-27 15:42 | Emergency (ER) | payer MEDICARE, MEDICAID ==
[~2019-02-27] VITALS: Ht 167 cm; Wt 52.2 kg
[~2019-02-27 15:42] MED LIST changes: +SIMV10TA26 PO; -SIMV10TA3 PO
[2019-02-27] MEDS ORDERED: ONDANSETRON 4 MG (ZOFRAN) ORAL DISSOLVE TAB SL STA (16:50)
--- NOTE | 2019-02-27 17:27 | ED General ---
General Chief Complaint: General Problems/Pain Stated Complaint: DIALYSIS SITE BLEEDING, NAUSEA Nursing Triage Note: PATIENT HERE FOR NAUSEA THAT STARTED WHEN SHE WOKE UP THIS AM. SHE WENT TO DIALYSIS AND ALSO HAD TROUBLES WITH BLEEIDNG AT HER SITE. Nursing Sepsis Screen: No Definite Risk Source of Information: Patient Exam Limitations: No Limitations History of Present Illness Date Seen by Provider: Feb 27, 2019 Time Seen by Provider: 16:55 Initial Comments Here from dialysis with report that the dialysis shunt to the left arm is still bleeding. She also had nausea. They did stop her dialysis somewhat early due to this. She is not sure how much fluid the tech. Patient reports that she had nausea prior to going to dialysis. She does have history of chronic wounds on her abdomen and legs. The wounds on her abdomen have actually healed although she still has some stuff with her legs. Her main complaint and concern is nausea and she does not really want much more than treatment for that at this point. Denies fever or chills. Denies diarrhea. She does not urinate. Timing/Duration: 12 Hours Severity: Mild, Moderate Associated Systoms: No Chest Pain, No Fever/Chills; Nausea/Vomiting; No Shortness of Air; Weakness Allergies and Home Medications Allergies Coded Allergies: lisinopril (Verified Allergy, Unknown, 05/15/18) Home Medications Amlodipine Besylate 10 Mg Tablet, 10 MG PO DAILY, (Reported) Ascorbic Acid 500 Mg Capsule, 500 MG PO DAILY, (Reported) Aspirin 325 Mg Tablet, 325 MG PO DAILY, (Reported) Carvedilol 25 Mg Tab, 25 MG PO BID, (Reported) Cholecalciferol 5,000 Unit Capsule, 5,000 UNIT PO DAILY, (Reported) Clonidine HCl 0.1 Mg Tablet, 0.1 MG PO TID, (Reported) Darbepoetin Jesus 200 Mcg/Ml Soln, 100 MCG SQ WEEK, (Reported) Docusate Sodium 100 Mg Capsule, 100 MG PO BID, (Reported) Folic Acid 1 Mg Tablet, 1 MG PO DAILY, (Reported) Gabapentin 100 Mg Capsule, 100 MG PO HS, (Reported) Hydrocodone Bit/Acetaminophen 1 Tab Tab, 1-2 TAB PO Q6H PRN for PAIN-MODERATE Prescribed by: DAVID PERKINS on 05/15/18 0811 Insulin Glargine,Hum.rec.anlog 100 Unit/1 Ml Insuln.pen, 4 UNIT SQ HS, (Reported) Insulin Lispro 100 Unit/1 Ml Insuln.pen, 0-14 UNIT SQ TID PRN for sliding scale, (Reported) Lanthanum Carbonate 1,000 Mg Powd.pack, 1,000 MG PO TIDWM, (Reported) Pantoprazole Sodium 40 Mg Tablet.dr, 40 MG PO DAILY, (Reported) Sevelamer Carbonate 800 Mg Tablet, 1,600 MG PO AC, (Reported) Simvastatin 10 Mg Tablet, 10 MG PO HS, (Reported) Patient Home Medication List Home Medication List Reviewed: Yes Review of Systems Review of Systems Constitutional: see HPI; No chills, No fever EENTM: no symptoms reported Respiratory: no symptoms reported Cardiovascular: no symptoms reported Gastrointestinal: see HPI, nausea, vomiting Genitourinary: see HPI Musculoskeletal: no symptoms reported Past Rskzrsx-Dzartp-Ldnxxx Hx Past Med/Social Hx: Reviewed Nursing Past Med/Soc Hx Patient Social History Alcohol Use: Denies Use Recreational Drug Use: No Smoking Status: Former Smoker Type Used: Cigarettes 2nd Hand Smoke Exposure: No Recent Foreign Travel: No Contact w/Someone Who Travel: No Recent Infectious Disease Expo: No Recent Hopitalizations: No Immunizations Up To Date Tetanus Booster (TDap): Unknown PED Vaccines UTD: Yes Seasonal Allergies Seasonal Allergies: No Past Medical History Surgeries: Yes (A-V DIALYSIS GRAFT/fistula left upper extremity; ABDOMINAL WALL WOUND) Abdominal, Amputation, Dialysis, Tubal Ligation, Vascular Surgery Respiratory: Yes (CHRONIC HYPOXIA, uses 3 L by nasal cannula continuously) Pneumonia Cardiac: Yes (CALCIPHYLAXIS; CHF) Chronic Edema/Swelling, High Cholesterol, Hypertension Neurological: Yes (PERIPHERAL NEUROPATHY) Neuropathy 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: 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 Genitourinary: Yes Renal Failure, Dialysis Gastrointestinal: Yes (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; ) Gastroesophageal Reflux Musculoskeletal: Yes (OSTEOMYELITIS; CHRONIC GENERALIZED WEAKNESS AND PAIN ) Endocrine: Yes (CALCIPHYLAXIS) Diabetes, Insulin dep, Hypothyroidsim HEENT: No Cancer: No Psychosocial: Yes Anxiety 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 4.0oz. [id number]; 18.00 BMI Method:Stated General Appearance: WD/WN, Chronically ill HEENT: PERRL/EOMI, Pharynx Normal Neck: Non Tender, Supple Respiratory: Lungs Clear, Normal Breath Sounds Cardiovascular: Regular Rate, Rhythm, No Murmur Gastrointestinal: Non Tender, Soft Extremity: Normal Range of Motion, Non Tender Neurologic/Psychiatric: Alert, Oriented x3 Skin: Normal Color, Warm/Dry, Other (dialysis shunt wound is no longer bleeding after pressure had been applied.) Progress/Results/Core Measures Suspected Sepsis Recent Fever Within 48 Hours: No Infection Criteria Present: None New/Unexplained Altered Menta: No Sepsis Screen: No Definite Risk SIRS Temperature: Pulse: 65 Respiratory Rate: 18 Blood Pressure 118 /37 Mean: 64 Results/Orders My Orders Orders - FAIZAN MUIR MD Ondansetron Oral Dissolve Tab (Zofran (02/27/19 16:50) Vital Signs/I&O 02/27/19 15:49 Pulse 65 Resp 18 B/P (MAP) 118/37 (64) Pulse Ox 96 Capillary Refill : Less Than 3 Seconds Blood Pressure Mean: 64 POS Progress Note : Progress Note Seen and evaluated. I offered workup. Patient really only wants to try some Zofran and if she gets to feeling better she would like to go back to the [facility]. Zofran 4 mg by mouth given. Monitor patient. 1750: Overall feeling better. Discharge back to [facility] with return precautions. Patient verbalize understanding instructions and agreement with plan. Departure Impression Primary Impression: Nausea and vomiting Qualified Codes: R11.2 - Nausea with vomiting, unspecified Additional Impression: End stage renal disease on dialysis Disposition: 01 HOME, SELF-CARE Condition: Improved Departure-Patient Inst. Decision time for Depature: 17:51 Referrals: KELLI PRAJAPATI MD (PCP/Family) Primary Care Physician Patient Instructions: Nausea and Vomiting, Adult (DC), End Stage Kidney Disease Add. Discharge Instructions: All discharge instructions reviewed with patient and/or family. Voiced understa nding. Continue home meds as previously prescribed. Continue dialysis appointments as scheduled. Return for worsening, fever, vomiting, weakness, breathing problems or other concerns as needed. FAIZAN MUIR MD Feb 27, 2019 17:27 POS
[2019-02-27 18:47] VITALS: BP 118/37
--- OUTSIDE RECORDS SUMMARY | 2019-03-25 14:11 | XMS REPORT | Continuity of Care Document ---
Author Organization Unknown Address Unknown Phone Unavailable Allergies Active Description Code Type Severity Reaction Onset Reported/Identified Relationship to Patient Clinical Status Yes lisinopril [id number] Drug Allerg y Unknown N/A 05/15/2018 Medications There is no data. 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 12/28/2017 Ot Z51.81 ENC OUNTER FOR THERAPEUTIC DRUG LEVEL MON 12/28/2017 Ot Z79.2 NURSING HOME (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 ANTIBIOTICS 12/28/2017 ZACHERY BRANTLEY MD Ot D64.9 ANEMIA, UNSPECIFIED 12/28/2017 ZACHERY BRANTLEY MD Ot 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 12/28/2017 ZACHERY BRANTLEY MD Ot E78.00 PURE HYPERCHOLESTEROLEMIA, UNSPECIFIED 12/28/2017 ZACHERY BRANTLEY MD Ot I12.0 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 12/28/2017 ZACHERY BRANTLEY MD Ot J91.8 PLEURAL EFFUSION IN OTHER CONDITIONS CLA 12/28/2017 ZACHERY BRANTLEY MD Ot L98.499 NON-PRESSURE CHRONIC ULCER OF SKIN OF SI 12/28/2017 ZACHERY BRANTLEY MD Ot N18.6 END STAGE RENAL DISEASE 12/28/2017 ZACHERY BRANTLEY MD Ot R41.82 ALTERED MENTAL STATUS, UNSPECIFIED 12/28/2017 ZACHERY BRANTLEY MD Ot Z88.8 ALLERGY STATUS TO OTH DRUG/MEDS/BIOL SUB 12/28/2017 ZACHERY BRANTLEY MD Ot 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 ON RENAL DIALYSIS 01/06/2018 FAIZAN MUIR MD Ot 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 01/06/2018 FAIZAN MUIR MD Ot E78.00 PURE HYPERCHOLESTEROLEMIA, UNSPECIFIED 01/06/2018 FAIZAN MUIR MD Ot E83.59 OTHER DISORDERS OF CALCIUM METABOLISM 01/06/2018 FAIZAN MUIR MD Ot I12.0 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 01/06/2018 FAIZAN MUIR MD Ot K21.9 GASTRO-ESOPHAGEAL REFLUX DISEASE WITHOUT 01/06/2018 FAIZAN MUIR MD Ot L08.9 LOCAL INFECTION OF THE SKIN AND SUBCUTAN 01/06/2018 FAIZAN MUIR MD Ot N18.6 END STAGE RENAL DISEASE 01/06/2018 FAIZAN MUIR MD Ot S31.109A UNSP OPN WND ABD WALL, UNSP Q W/O PENET 01/06/2018 FAIZAN MUIR MD Ot X58.XXXA EXPOSURE TO OTHER SPECIFIED FACTORS, INI 01/06/2018 FAIZAN MUIR MD Ot Z87.891 PERSONAL HISTORY OF NICOTINE DEPENDENCE 01/06/2018 FAIZAN MUIR MD Ot Z88.8 ALLERGY STATUS TO OTH DRUG/MEDS/BIOL SUB 01/06/2018 FAIZAN MUIR MD Ot 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 ON RENAL DIALYSIS 01/08/2018 FAIZAN MUIR MD Ot 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 01/08/2018 FAIZAN MUIR MD Ot E78.00 PURE HYPERCHOLESTEROLEMIA, UNSPECIFIED 01/08/2018 FAIZAN MUIR MD Ot E83.59 OTHER DISORDERS OF CALCIUM METABOLISM 01/08/2018 FAIZAN MUIR MD Ot I12.0 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 01/08/2018 FAIZAN MUIR MD Ot K21.9 GASTRO-ESOPHAGEAL REFLUX DISEASE WITHOUT 01/08/2018 FAIZAN MUIR MD Ot L08.9 LOCAL INFECTION OF THE SKIN AND SUBCUTAN 01/08/2018 FAIZAN MUIR MD Ot N18.6 END STAGE RENAL DISEASE 01/08/2018 FAIZAN MUIR MD Ot S31.109A UNSP OPN WND ABD WALL, UNSP Q W/O PENET 01/08/2018 FAIZAN MUIR MD Ot X58.XXXA EXPOSURE TO OTHER SPECIFIED FACTORS, INI 01/08/2018 FAIZAN MUIR MD, Ot Z87.891 PERSONAL HISTORY OF NICOTINE DEPENDENCE 01/08/2018 FAIZAN MUIR MD, Ot Z88.8 ALLERGY STATUS TO OTH DRUG/MEDS/BIOL SUB 01/08/2018 FAIZAN MUIR MD Ot 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 ON RENAL DIALYSIS 01/10/2018 Ot L03.311 CE LLULITIS OF ABDOMINAL WALL 01/10/2018 Ot Z51.81 ENC OUNTER FOR THERAPEUTIC DRUG LEVEL MON 01/10/2018 Ot 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 01/23/2018 Ot L03.311 CE LLULITIS OF ABDOMINAL WALL 01/23/2018 Ot Z51.81 ENC OUNTER FOR THERAPEUTIC DRUG LEVEL MON 01/23/2018 Ot 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 01/23/2018 FAIZAN MUIR MD Ot D64.9 ANEMIA, UNSPECIFIED 01/23/2018 FAIZAN MUIR MD Ot 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 01/23/2018 FAIZAN MUIR MD Ot E78.00 PURE HYPERCHOLESTEROLEMIA, UNSPECIFIED 01/23/2018 FAIZAN MUIR MD Ot E83.59 OTHER DISORDERS OF CALCIUM METABOLISM 01/23/2018 FAIZAN MUIR MD Ot I12.0 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 01/23/2018 FAIZAN MUIR MD Ot J18.1 LOBAR PNEUMONIA, UNSPECIFIED ORGANISM 01/23/2018 FAIZAN MUIR MD Ot K21.9 GASTRO-ESOPHAGEAL REFLUX DISEASE WITHOUT 01/23/2018 MATCH-E-BE-NASH-SHE-WISH BAND MD, FAIZAN D Ot N18.6 END STAGE RENAL DISEASE 01/23/2018 FAIZAN MUIR MD Ot R50.9 FEVER, UNSPECIFIED 01/23/2018 FAIZAN MUIR MD Ot Z88.8 ALLERGY STATUS TO OTH DRUG/MEDS/BIOL SUB 01/23/2018 FAIZAN MUIR MD Ot Z98.890 OTHER SPECIFIED POSTPROCEDURAL STATES 01/23/2018 FAIZAN MUIR MD Ot 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 ON RENAL DIALYSIS 01/25/2018 FAIZAN MUIR MD Ot D64.9 ANEMIA, UNSPECIFIED 01/25/2018 FAIZAN MUIR MD Ot 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 01/25/2018 FAIZAN MUIR MD Ot E78.00 PURE HYPERCHOLESTEROLEMIA, UNSPECIFIED 01/25/2018 FAIZAN MUIR MD Ot E83.59 OTHER DISORDERS OF CALCIUM METABOLISM 01/25/2018 FAIZAN MUIR MD Ot I12.0 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 01/25/2018 FAIZAN MUIR MD Ot J18.1 LOBAR PNEUMONIA, UNSPECIFIED ORGANISM 01/25/2018 FAIZAN MUIR MD Ot K21.9 GASTRO-ESOPHAGEAL REFLUX DISEASE WITHOUT 01/25/2018 FAIZAN MUIR MD Ot N18.6 END STAGE RENAL DISEASE 01/25/2018 FAIZAN MUIR MD Ot R50.9 FEVER, UNSPECIFIED 01/25/2018 FAIZAN MUIR MD Ot Z88.8 ALLERGY STATUS TO OTH DRUG/MEDS/BIOL SUB 01/25/2018 FAIZAN MUIR MD Ot Z98.890 OTHER SPECIFIED POSTPROCEDURAL STATES 01/25/2018 FAIZAN MUIR MD Ot 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 ON RENAL DIALYSIS 01/29/2018 DAMI DO, TAL K Ot D64.9 ANEMIA, UNSPECIFIED 01/29/2018 DAMI DO, TAL K Ot 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 01/29/2018 DAMI DO, TAL K Ot E11.42 TYPE 2 DIABETES MELLITUS WITH DIABETIC P 01/29/2018 DAMI DO, TAL K Ot E78.00 PURE HYPERCHOLESTEROLEMIA, UNSPECIFIED 01/29/2018 DAMI DO, TAL K Ot E83.59 OTHER DISORDERS OF CALCIUM METABOLISM 01/29/2018 DAMI DO, TAL K Ot I12.0 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 01/29/2018 DAMI DO, TAL K Ot K21.9 GASTRO-ESOPHAGEAL REFLUX DISEASE WITHOUT 01/29/2018 DAMI DO, TAL K Ot N18.6 END STAGE RENAL DISEASE 01/29/2018 DAMI DO, TAL K Ot R41.82 ALTERED MENTAL STATUS, UNSPECIFIED 01/29/2018 DAMI DO, TAL K Ot R50.9 FEVER, UNSPECIFIED 01/29/2018 DAMI DO, TAL K Ot Z79.4 NURSING HOME (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 INSULIN 01/29/2018 DAMI DO, TAL K Ot Z87.891 PERSONAL HISTORY OF NICOTINE DEPENDENCE 01/29/2018 DAMI DO, TAL K Ot Z88.8 ALLERGY STATUS TO OTH DRUG/MEDS/BIOL SUB 01/29/2018 DAMI DO, TAL K Ot 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 ON RENAL DIALYSIS 01/29/2018 Ot L03.311 CE LLULITIS OF ABDOMINAL WALL 01/29/2018 Ot Z51.81 ENC OUNTER FOR THERAPEUTIC DRUG LEVEL MON 01/29/2018 Ot Z79.2 NURSING HOME (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 ANTIBIOTICS 02/05/2018 DAMI DO, TAL K Ot D64.9 ANEMIA, UNSPECIFIED 02/05/2018 DAMI DO, TAL K Ot 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 02/05/2018 DAMI DO, TAL K Ot E11.42 TYPE 2 DIABETES MELLITUS WITH DIABETIC P 02/05/2018 DAMI DO, TAL K Ot E78.00 PURE HYPERCHOLESTEROLEMIA, UNSPECIFIED 02/05/2018 DAMI DO, TAL K Ot E83.59 OTHER DISORDERS OF CALCIUM METABOLISM 02/05/2018 DAMI DO, TAL K Ot I12.0 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 02/05/2018 DAMI DO, TAL K Ot K21.9 GASTRO-ESOPHAGEAL REFLUX DISEASE WITHOUT 02/05/2018 DAMI DO, TAL K Ot N18.6 END STAGE RENAL DISEASE 02/05/2018 DAMI DO, TAL K Ot R41.82 ALTERED MENTAL STATUS, UNSPECIFIED 02/05/2018 DAMI DO, TAL K Ot R50.9 FEVER, UNSPECIFIED 02/05/2018 TAL LOMAX DO Ot 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 02/05/2018 TAL LOMAX DO Ot Z87.891 PERSONAL HISTORY OF NICOTINE DEPENDENCE 02/05/2018 TAL LOMAX DO Ot Z88.8 ALLERGY STATUS TO OTH DRUG/MEDS/BIOL SUB 02/05/2018 TAL LOMAX DO Ot 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 ON RENAL DIALYSIS 02/20/2018 Ot L03.311 CE LLULITIS OF ABDOMINAL WALL 02/20/2018 Ot Z51.81 ENC OUNTER FOR THERAPEUTIC DRUG LEVEL MON 02/20/2018 Ot Z79.2 NURSING HOME (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 ANTIBIOTICS 02/21/2018 KELLI PRAJAPATI MD Ot D64.9 ANEMIA, UNSPECIFIED 02/24/2018 Ot L03.311 CE LLULITIS OF ABDOMINAL WALL 02/24/2018 Ot Z51.81 ENC OUNTER FOR THERAPEUTIC DRUG LEVEL MON 02/24/2018 Ot Z79.2 NURSING HOME (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 ANTIBIOTICS 02/24/2018 FAIZAN MUIR MD Ot D64.9 ANEMIA, UNSPECIFIED 02/24/2018 FAIZAN MUIR MD Ot 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 02/24/2018 FAIZAN MUIR MD Ot E11.40 TYPE 2 DIABETES MELLITUS WITH DIABETIC N 02/24/2018 FAIZAN MUIR MD Ot E78.00 PURE HYPERCHOLESTEROLEMIA, UNSPECIFIED 02/24/2018 FAIZAN MUIR MD Ot F17.210 NICOTINE DEPENDENCE, CIGARETTES, UNCOMPL 02/24/2018 FAIZAN MUIR MD Ot I13.0 HYP HRT CHR [facility] DIS W HRT FAIL AND ST 02/24/2018 FAIZAN MUIR MD Ot I50.9 HEART FAILURE, UNSPECIFIED 02/24/2018 FAIZAN MUIR MD, Ot K21.9 GASTRO-ESOPHAGEAL REFLUX DISEASE WITHOUT 02/24/2018 FAIZAN MUIR MD Ot N18.6 END STAGE RENAL DISEASE 02/24/2018 FAIZAN MUIR MD Ot R41.82 ALTERED MENTAL STATUS, UNSPECIFIED 02/24/2018 FAIZAN MUIR MD Ot Z79.4 NURSING HOME (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 INSULIN 02/24/2018 FAIZAN MUIR MD Ot Z88.8 ALLERGY STATUS TO OTH DRUG/MEDS/BIOL SUB 02/24/2018 FAIZAN MUIR MD Ot Z98.890 OTHER SPECIFIED POSTPROCEDURAL STATES 02/24/2018 FAIZAN MUIR MD Ot 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 ON RENAL DIALYSIS 02/26/2018 FAIZAN MUIR MD Ot D64.9 ANEMIA, UNSPECIFIED 02/26/2018 FAIZAN MUIR MD Ot 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 02/26/2018 FAIZAN MUIR MD Ot E11.40 TYPE 2 DIABETES MELLITUS WITH DIABETIC N 02/26/2018 FAIZAN MUIR MD, Ot E78.00 PURE HYPERCHOLESTEROLEMIA, UNSPECIFIED 02/26/2018 FAIZAN MUIR MD Ot F17.210 NICOTINE DEPENDENCE, CIGARETTES, UNCOMPL 02/26/2018 FAIZAN MUIR MD Ot I13.0 HYP HRT CHR [facility] DIS W HRT FAIL AND ST 02/26/2018 FAIZAN MUIR MD, Ot I50.9 HEART FAILURE, UNSPECIFIED 02/26/2018 FAIZAN MUIR MD, Ot K21.9 GASTRO-ESOPHAGEAL REFLUX DISEASE WITHOUT 02/26/2018 FAIZAN MUIR MD Ot N18.6 END STAGE RENAL DISEASE 02/26/2018 FAIZAN MUIR MD Ot R41.82 ALTERED MENTAL STATUS, UNSPECIFIED 02/26/2018 FAIZAN MUIR MD Ot Z79.4 NURSING HOME (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 INSULIN 02/26/2018 FAIZAN MUIR MD Ot Z88.8 ALLERGY STATUS TO OTH DRUG/MEDS/BIOL SUB 02/26/2018 FAIZAN MUIR MD Ot Z98.890 OTHER SPECIFIED POSTPROCEDURAL STATES 02/26/2018 FAIZAN MUIR MD Ot 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 ON RENAL DIALYSIS 03/04/2018 Ot L03.311 CE LLULITIS OF ABDOMINAL WALL 03/04/2018 Ot Z51.81 ENC OUNTER FOR THERAPEUTIC DRUG LEVEL MON 03/04/2018 Ot 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 03/04/2018 FAIZAN MUIR MD Ot D64.9 ANEMIA, UNSPECIFIED 03/04/2018 FAIZAN MUIR MD, Ot 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 03/04/2018 FAIZAN MUIR MD, Ot E11.40 TYPE 2 DIABETES MELLITUS WITH DIABETIC N 03/04/2018 FAIZAN MUIR MD, Ot E11.622 TYPE 2 DIABETES MELLITUS WITH OTHER SKIN 03/04/2018 FAIZAN MUIR MD Ot E78.00 PURE HYPERCHOLESTEROLEMIA, UNSPECIFIED 03/04/2018 FAIZAN MUIR MD Ot 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 03/04/2018 FAIZAN MUIR MD, Ot I50.9 HEART FAILURE, UNSPECIFIED 03/04/2018 FAIZAN MUIR MD, Ot K21.9 GASTRO-ESOPHAGEAL REFLUX DISEASE WITHOUT 03/04/2018 FAIZAN MUIR MD, Ot L98.499 NON-PRESSURE CHRONIC ULCER OF SKIN OF SI 03/04/2018 FAIZAN MUIR MD, Ot N18.6 END STAGE RENAL DISEASE 03/04/2018 FAIZAN MUIR MD, Ot R50.9 FEVER, UNSPECIFIED 03/04/2018 FAIZAN MUIR MD, Ot Z79.4 NURSING HOME (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 INSULIN 03/04/2018 FAIZAN MUIR MD, Ot Z87.01 PERSONAL HISTORY OF PNEUMONIA (RECURRENT 03/04/2018 FAIZAN MUIR MD, Ot Z87.891 PERSONAL HISTORY OF NICOTINE DEPENDENCE 03/04/2018 FAIZAN MUIR MD, Ot Z88.8 ALLERGY STATUS TO OTH DRUG/MEDS/BIOL SUB 03/04/2018 FAIZAN MUIR MD, Ot 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 ON RENAL DIALYSIS 03/07/2018 FAIZAN MUIR MD, Ot D64.9 ANEMIA, UNSPECIFIED 03/07/2018 FAIZAN MUIR MD, Ot 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 03/07/2018 FAIZAN MUIR MD, Ot E11.40 TYPE 2 DIABETES MELLITUS WITH DIABETIC N 03/07/2018 FAIZAN MUIR MD, Ot E11.622 TYPE 2 DIABETES MELLITUS WITH OTHER SKIN 03/07/2018 FAIZAN MUIR MD, Ot E78.00 PURE HYPERCHOLESTEROLEMIA, UNSPECIFIED 03/07/2018 FAIZAN MUIR MD Ot 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 03/07/2018 FAIZAN MUIR MD, Ot I50.9 HEART FAILURE, UNSPECIFIED 03/07/2018 FAIZAN MUIR MD, Ot K21.9 GASTRO-ESOPHAGEAL REFLUX DISEASE WITHOUT 03/07/2018 FAIZAN MUIR MD Ot L98.499 NON-PRESSURE CHRONIC ULCER OF SKIN OF SI 03/07/2018 FAIZAN MUIR MD, Ot N18.6 END STAGE RENAL DISEASE 03/07/2018 FAIZAN MUIR MD, Ot R50.9 FEVER, UNSPECIFIED 03/07/2018 FAIZAN MUIR MD, Ot 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 03/07/2018 FAIZAN MUIR MD, Ot Z87.01 PERSONAL HISTORY OF PNEUMONIA (RECURRENT 03/07/2018 FAIZAN MUIR MD, Ot Z87.891 PERSONAL HISTORY OF NICOTINE DEPENDENCE 03/07/2018 FAIZAN MUIR MD, Ot Z88.8 ALLERGY STATUS TO [facility] DRUG/MEDS/BIOL SUB 03/07/2018 FAIZAN MUIR MD Ot 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 ON RENAL DIALYSIS 04/12/2018 Ot Z51.81 ENC OUNTER FOR THERAPEUTIC DRUG LEVEL MON 04/12/2018 Ot Z79.2 NURSING HOME (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 ANTIBIOTICS 04/16/2018 ZACHERY BRANTLEY MD Ot D63.8 ANEMIA IN OTHER CHRONIC DISEASES CLASSIF 04/16/2018 ZACHERY BRANTLEY MD Ot D64.9 ANEMIA, UNSPECIFIED 04/16/2018 ZACHERY BRANTLEY MD Ot 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 04/16/2018 ZACHERY BRANTLEY MD Ot E78.00 PURE HYPERCHOLESTEROLEMIA, UNSPECIFIED 04/16/2018 ZACHERY BRANTLEY MD Ot 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 04/16/2018 ZACHERY BRANTLEY MD Ot I50.9 HEART FAILURE, UNSPECIFIED 04/16/2018 ZACHERY BRANTLEY MD, Ot K21.9 GASTRO-ESOPHAGEAL REFLUX DISEASE WITHOUT 04/16/2018 ZACHERY BRANTLEY MD Ot L08.9 LOCAL INFECTION OF THE SKIN AND SUBCUTAN 04/16/2018 ZACHERY BRANTLEY MD, Ot N18.6 END STAGE RENAL DISEASE 04/16/2018 ZACHERY BRANTLEY MD, Ot S31.109A UNSP OPN WND ABD WALL, UNSP Q W/O PENET 04/16/2018 ZACHERY BRANTLEY MD, Ot X58.XXXA EXPOSURE TO OTHER SPECIFIED FACTORS, INI 04/16/2018 ZACHERY BRANTLEY MD, Ot 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 04/16/2018 ZACHERY BRANTLEY MD, Ot Z87.01 PERSONAL HISTORY OF PNEUMONIA (RECURRENT 04/16/2018 ZACHERY BRANTLEY MD, Ot Z88.8 ALLERGY STATUS TO [facility] DRUG/MEDS/BIOL SUB 04/16/2018 ZACHERY BRANTLEY MD, Ot Z98.890 OTHER SPECIFIED POSTPROCEDURAL STATES 04/16/2018 ZACHERY BRANTLEY MD, Ot 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 ON RENAL DIALYSIS 04/17/2018 ZACHERY BRANTLEY MD, Ot D63.8 ANEMIA IN OTHER CHRONIC DISEASES CLASSIF 04/17/2018 ZACHERY BRANTLEY MD, Ot D64.9 ANEMIA, UNSPECIFIED 04/17/2018 ZACHERY BRANTLEY MD, Ot 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 04/17/2018 ZACHERY BRANTLEY MD, Ot E78.00 PURE HYPERCHOLESTEROLEMIA, UNSPECIFIED 04/17/2018 ZACHERY BRANTLEY MD, Ot 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 04/17/2018 ZACHERY BRANTLEY MD, Ot I50.9 HEART FAILURE, UNSPECIFIED 04/17/2018 ZACHERY BRANTLEY MD, Ot K21.9 GASTRO-ESOPHAGEAL REFLUX DISEASE WITHOUT 04/17/2018 ZACHERY BRANTLEY MD, Ot L08.9 LOCAL INFECTION OF THE SKIN AND SUBCUTAN 04/17/2018 ZACHERY BRANTLEY MD, Ot N18.6 END STAGE RENAL DISEASE 04/17/2018 ZACHERY BRANTLEY MD, Ot S31.109A UNSP OPN WND ABD WALL, UNSP Q W/O PENET 04/17/2018 ZACHERY BRANTLEY MD, Ot X58.XXXA EXPOSURE TO OTHER SPECIFIED FACTORS, INI 04/17/2018 ZACHERY BRANTLEY MD, Ot 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 04/17/2018 ZACHERY BRANTLEY MD, Ot Z87.01 PERSONAL HISTORY OF PNEUMONIA (RECURRENT 04/17/2018 ZACHERY BRANTLEY MD, Ot Z88.8 ALLERGY STATUS TO OTH DRUG/MEDS/BIOL SUB 04/17/2018 ZACHERY BRANTLEY MD, Ot Z98.890 OTHER SPECIFIED POSTPROCEDURAL STATES 04/17/2018 ZACHERY BRANTLEY MD, Ot 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 ON RENAL DIALYSIS 04/17/2018 FAIZNA MUIR MD, Ot D64.9 ANEMIA, UNSPECIFIED 04/17/2018 FAIZAN MUIR MD, Ot 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 04/17/2018 FAIZAN MUIR MD, Ot E11.40 TYPE 2 DIABETES MELLITUS WITH DIABETIC N 04/17/2018 FAIZAN MUIR MD, Ot E78.00 PURE HYPERCHOLESTEROLEMIA, UNSPECIFIED 04/17/2018 FAIZAN MUIR MD, Ot 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 04/17/2018 FAIZAN MUIR MD, Ot I50.9 HEART FAILURE, UNSPECIFIED 04/17/2018 FAIZAN MUIR MD, Ot K92.2 GASTROINTESTINAL HEMORRHAGE, UNSPECIFIED 04/17/2018 FAIZAN MUIR MD, Ot L08.9 LOCAL INFECTION OF THE SKIN AND SUBCUTAN 04/17/2018 FAIZAN MUIR MD, Ot N18.6 END STAGE RENAL DISEASE 04/17/2018 FAIZAN MUIR MD, Ot S31.109A UNSP OPN WND ABD WALL, UNSP Q W/O PENET 04/17/2018 FAIZAN MUIR MD, Ot X58.XXXA EXPOSURE TO OTHER SPECIFIED FACTORS, INI 04/17/2018 FAIZAN MUIR MD, Ot Z79.4 NURSING HOME (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 INSULIN 04/17/2018 FAIZAN MUIR MD, Ot Z87.01 PERSONAL HISTORY OF PNEUMONIA (RECURRENT 04/17/2018 FAIZAN MUIR MD, Ot Z87.891 PERSONAL HISTORY OF NICOTINE DEPENDENCE 04/17/2018 FAIZAN MUIR MD, Ot Z98.890 OTHER SPECIFIED POSTPROCEDURAL STATES 04/17/2018 FAIZAN MUIR MD, Ot 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 ON RENAL DIALYSIS 04/19/2018 FAIZAN MUIR MD, Ot D64.9 ANEMIA, UNSPECIFIED 04/19/2018 FAIZAN MUIR MD, Ot 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 04/19/2018 FAIZAN MUIR MD, Ot E11.40 TYPE 2 DIABETES MELLITUS WITH DIABETIC N 04/19/2018 FAIZAN MUIR MD, Ot E78.00 PURE HYPERCHOLESTEROLEMIA, UNSPECIFIED 04/19/2018 FAIZAN MUIR MD, Ot 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 04/19/2018 FAIZAN MUIR MD, Ot I50.9 HEART FAILURE, UNSPECIFIED 04/19/2018 FAIZAN MUIR MD, Ot K92.2 GASTROINTESTINAL HEMORRHAGE, UNSPECIFIED 04/19/2018 FAIZAN MUIR MD, Ot L08.9 LOCAL INFECTION OF THE SKIN AND SUBCUTAN 04/19/2018 FAIZAN MUIR MD, Ot N18.6 END STAGE RENAL DISEASE 04/19/2018 FAIZAN MUIR MD, Ot S31.109A UNSP OPN WND ABD WALL, UNSP Q W/O PENET 04/19/2018 FAIZAN MUIR MD, Ot X58.XXXA EXPOSURE TO OTHER SPECIFIED FACTORS, INI 04/19/2018 FAIZAN MUIR MD, Ot 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 04/19/2018 FAIZAN MUIR MD, Ot Z87.01 PERSONAL HISTORY OF PNEUMONIA (RECURRENT 04/19/2018 FAIZAN MUIR MD, Ot Z87.891 PERSONAL HISTORY OF NICOTINE DEPENDENCE 04/19/2018 FAIZAN MUIR MD, Ot Z98.890 OTHER SPECIFIED POSTPROCEDURAL STATES 04/19/2018 FAIZAN MUIR MD, Ot 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 ON RENAL DIALYSIS 04/19/2018 Ot Z51.81 ENC OUNTER FOR THERAPEUTIC DRUG LEVEL MON 04/19/2018 Ot 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 05/03/2018 KELLI PRAJAPATI MD Ot 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 22 TYPE 2 DIABETES MELLITUS W DIABETIC PARTS COUNTER ASSOCIATE 05/15/2018 MADDIE DPM, DAVID Q Ot E11. 40 TYPE 2 DIABETES MELLITUS WITH DIABETIC N 05/15/2018 MADDIE DPM, DAVID Q Ot E11. 69 TYPE 2 DIABETES MELLITUS WITH OTHER SPEC 05/15/2018 MADDIE DPM, DAVID Q Ot E78. 2 MIXED HYPERLIPIDEMIA 05/15/2018 MADDIE DPM, DAVID Q Ot G47. 33 OBSTRUCTIVE SLEEP APNEA (ADULT) (PEDIATR 05/15/2018 MADDIE DPM, DAVID Q Ot I13. 11 HYP HRT AND CHR [facility] DIS W/O HRT FAIL, W 05/15/2018 MADDIE DPM, DAVID Q Ot I34. 0 NONRHEUMATIC MITRAL (VALVE) INSUFFICIENC 05/15/2018 MADDIE DPM, DAVID Q Ot I50. 32 CHRONIC DIASTOLIC (CONGESTIVE) HEART ZOLTAN 05/15/2018 MADDIE DPM, DAVID Q Ot M86.672 OTHER CHRONIC OSTEOMYELITIS, LEFT ANKLE 05/15/2018 MADDIE DPM, DAVID Q Ot N18. 6 END STAGE RENAL DISEASE 05/15/2018 MADDIE DPM, DAVID Q Ot Z66 DO NOT RESUSCITATE 05/15/2018 MADDIE DPM, DAVID Q Ot Z79. 4 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 05/15/2018 MADDIE DPM, DAVID Q Ot Z79. 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 40 TYPE 2 DIABETES MELLITUS WITH DIABETIC N 05/16/2018 MADDIE DPM, DAVID Q Ot E11. 69 TYPE 2 DIABETES MELLITUS WITH OTHER SPEC 05/16/2018 MADDIE DPM, DAVID Q Ot E78. 2 MIXED HYPERLIPIDEMIA 05/16/2018 MADDIE DPM, DAVID Q Ot G47. 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 0 NONRHEUMATIC MITRAL (VALVE) INSUFFICIENC 05/16/2018 MADDIE DPM, DAVID Q Ot I50. 32 CHRONIC DIASTOLIC (CONGESTIVE) HEART ZOLTAN 05/16/2018 MADDIE DPM, DAVID Q Ot M86.672 OTHER CHRONIC OSTEOMYELITIS, LEFT ANKLE 05/16/2018 MADDIE DPM, DAVID Q Ot N18. 6 END STAGE RENAL DISEASE 05/16/2018 MADDIE DPM, DAVID Q Ot Z66 DO NOT RESUSCITATE 05/16/2018 MADDIE DPM, DAVID Q Ot Z79. 4 NURSING HOME (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 INSULIN 05/16/2018 MADDIE DPM, DAVID Q Ot Z79. 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 40 TYPE 2 DIABETES MELLITUS WITH DIABETIC N 05/24/2018 MADDIE DPM, DAVID Q Ot E11. 69 TYPE 2 DIABETES MELLITUS WITH OTHER SPEC 05/24/2018 MADDIE DPM, DAVID Q Ot E78. 2 MIXED HYPERLIPIDEMIA 05/24/2018 MADDIE DPM, DAVID Q Ot G47. 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 0 NONRHEUMATIC MITRAL (VALVE) INSUFFICIENC 05/24/2018 MADDIE DPM, DAVID Q Ot I50. 32 CHRONIC DIASTOLIC (CONGESTIVE) HEART ZOLTAN 05/24/2018 MADDIE DPM, DAVID Q Ot M86.672 OTHER CHRONIC OSTEOMYELITIS, LEFT ANKLE 05/24/2018 MADDIE DPM, DAVID Q Ot N18. 6 END STAGE RENAL DISEASE 05/24/2018 MADDIE DPM, DAVID Q Ot Z66 DO NOT RESUSCITATE 05/24/2018 MADDIE DPM, DAVID Q Ot Z79. 4 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 05/24/2018 MADDIE DPM, DAVID Q Ot Z79. 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 06/07/2018 KELLI PRAJAPATI MD Ot 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 ON RENAL DIALYSIS 06/08/2018 KELLI PRAJAPATI MD Ot D64.9 ANEMIA, UNSPECIFIED 06/14/2018 JULEE BELL, YVONNE Ot E61.1 IRON DEFICIENCY 06/15/2018 YVONNE LADD MD Ot E61.1 IRON DEFICIENCY 06/18/2018 KELLI PRAJAPATI MD Ot 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 ON RENAL DIALYSIS 06/20/2018 KELLI PRAJAPATI MD, Ot D64.9 ANEMIA, UNSPECIFIED 06/20/2018 Ot L03.311 CE LLULITIS OF ABDOMINAL WALL 06/20/2018 Ot Z51.81 ENC OUNTER FOR THERAPEUTIC DRUG LEVEL MON 06/20/2018 Ot Z79.2 NURSING HOME (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 ANTIBIOTICS 06/20/2018 KELLI PRAJAPATI MD Ot 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 ON RENAL DIALYSIS 06/20/2018 KELLI PRAJAPATI MD Ot D64.9 ANEMIA, UNSPECIFIED 06/20/2018 JUAN BROWN MD, Ot D64. 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 42 TYPE 2 DIABETES MELLITUS WITH DIABETIC P 06/20/2018 JUAN BROWN MD Ot E11. 69 TYPE 2 DIABETES MELLITUS WITH OTHER SPEC 06/20/2018 JUAN BROWN MD Ot E78. 00 PURE HYPERCHOLESTEROLEMIA, UNSPECIFIED 06/20/2018 JUAN BROWN MD Ot I12. 0 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 06/20/2018 JUAN BROWN MD Ot K21. 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 9 LOCAL INFECTION OF THE SKIN AND SUBCUTAN 06/20/2018 JUAN BROWN MD, Ot M86. 9 OSTEOMYELITIS, UNSPECIFIED 06/20/2018 JUAN BROWN MD Ot N18. 6 END STAGE RENAL DISEASE 06/20/2018 JUAN BROWN MD Ot R09. 02 HYPOXEMIA 06/20/2018 JUAN BROWN MD, Ot S31.109A UNSP OPN WND ABD WALL, UNSP Q W/O PENET 06/20/2018 JUAN BROWN MD, Ot Z79. 4 NURSING HOME (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 INSULIN 06/20/2018 JUAN BROWN MD, Ot Z79. 82 CELLOPHANE WORKER (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 ASPIRIN 06/20/2018 JUAN BROWN MD, Ot Z87. 01 PERSONAL HISTORY OF PNEUMONIA (RECURRENT 06/20/2018 JUAN BROWN MD, Ot Z88. 8 ALLERGY STATUS TO [facility] DRUG/MEDS/BIOL SUB 06/20/2018 JUAN BROWN MD, Ot Z99. 2 DEPENDENCE ON RENAL DIALYSIS 06/23/2018 JUAN BROWN MD Ot D64. 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 42 TYPE 2 DIABETES MELLITUS WITH DIABETIC P 06/23/2018 JUAN BROWN MD, Ot E11. 69 TYPE 2 DIABETES MELLITUS WITH OTHER SPEC 06/23/2018 JUAN BROWN MD Ot E78. 00 PURE HYPERCHOLESTEROLEMIA, UNSPECIFIED 06/23/2018 JUAN BROWN MD Ot I12. 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 9 LOCAL INFECTION OF THE SKIN AND SUBCUTAN 06/23/2018 JUAN BROWN MD, Ot M86. 9 OSTEOMYELITIS, UNSPECIFIED 06/23/2018 JUAN BROWN MD, Ot N18. 6 END STAGE RENAL DISEASE 06/23/2018 JUAN BROWN MD Ot R09. 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 82 CELLOPHANE WORKER (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 ASPIRIN 06/23/2018 JUAN BROWN MD, Ot Z87. 01 PERSONAL HISTORY OF PNEUMONIA (RECURRENT 06/23/2018 JUAN BROWN MD, Ot Z88. 8 ALLERGY STATUS TO [facility] DRUG/MEDS/BIOL SUB 06/23/2018 JUAN BROWN MD Ot Z99. 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 07/11/2018 FAIZAN MUIR MD, Ot I50.9 HEART FAILURE, UNSPECIFIED 07/11/2018 FAIZAN MUIR MD, Ot K21.9 GASTRO-ESOPHAGEAL REFLUX DISEASE WITHOUT 07/11/2018 FAIZAN MUIR MD, Ot N18.6 END STAGE RENAL DISEASE 07/11/2018 FAIZAN MUIR MD, Ot R41.82 ALTERED MENTAL STATUS, UNSPECIFIED 07/11/2018 FAIZAN MUIR MD, Ot Z79.4 NURSING HOME (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 INSULIN 07/11/2018 FAIZAN MUIR MD, Ot Z88.8 ALLERGY STATUS TO [facility] DRUG/MEDS/BIOL SUB 07/11/2018 FAIZAN MUIR MD Ot Z98.890 OTHER SPECIFIED POSTPROCEDURAL STATES 07/11/2018 FAIZAN MUIR MD, Ot 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 ON RENAL DIALYSIS 08/02/2018 SHYANNE ALFONSO Ot D63.8 ANEMIA IN OTHER CHRONIC DISEASES CLASSIF 08/27/2018 KELLI PRAJAPATI MD Ot D64.9 ANEMIA, UNSPECIFIED 11/25/2018 ZACHERY BRANTLEY MD Ot A41.9 SEPSIS, UNSPECIFIED ORGANISM 11/25/2018 ZACHERY BRANTLEY MD Ot 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 11/25/2018 ZACHERY BRANTLEY MD Ot E11.40 TYPE 2 DIABETES MELLITUS WITH DIABETIC N 11/25/2018 ZACHERY BRANTLEY MD Ot E11.69 TYPE 2 DIABETES MELLITUS WITH OTHER SPEC 11/25/2018 ZACHERY BRANTLEY MD Ot E83.59 OTHER DISORDERS OF CALCIUM METABOLISM 11/25/2018 ZACHERY BRANTLEY MD Ot F41.9 ANXIETY DISORDER, UNSPECIFIED 11/25/2018 ZACHERY BRANTLEY MD Ot 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 11/25/2018 ZACHERY BRANTLEY MD, Ot I50.9 HEART FAILURE, UNSPECIFIED 11/25/2018 ZACHERY BRANTLEY MD, Ot J18.1 LOBAR PNEUMONIA, UNSPECIFIED ORGANISM 11/25/2018 ZACHERY BRANTLEY MD, Ot K21.9 GASTRO-ESOPHAGEAL REFLUX DISEASE WITHOUT 11/25/2018 ZACHERY BRANTLEY MD, Ot M86.9 OSTEOMYELITIS, UNSPECIFIED 11/25/2018 ZACHERY BRANTLEY MD, Ot N18.6 END STAGE RENAL DISEASE 11/25/2018 ZACHERY BRANTLEY MD, Ot R09.02 HYPOXEMIA 11/25/2018 ZACHERY BRANTLEY MD, Ot R50.9 FEVER, UNSPECIFIED 11/25/2018 ZACHERY BRANTLEY MD, Ot S31.109A UNSP OPN WND ABD WALL, UNSP Q W/O PENET 11/25/2018 ZACHERY BRANTLEY MD, Ot S81.809A UNSPECIFIED OPEN WOUND, UNSPECIFIED LOWE 11/25/2018 ZACHERY BRANTLEY MD, Ot X58.XXXA EXPOSURE TO OTHER SPECIFIED FACTORS, INI 11/25/2018 ZACHERY BRANTLEY MD, Ot 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 11/25/2018 ZACHERY BRANTLEY MD, Ot Z79.82 CELLOPHANE WORKER (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 ASPIRIN 11/25/2018 ZACHERY BRANTLEY MD, Ot Z87.891 PERSONAL HISTORY OF NICOTINE DEPENDENCE 11/25/2018 ZACHERY BRANTLEY MD, Ot Z88.8 ALLERGY STATUS TO [facility] DRUG/MEDS/BIOL SUB 11/25/2018 ZACHERY BRANTLEY MD, Ot Z98.51 TUBAL LIGATION STATUS 11/25/2018 ZACHERY BRANTLEY MD, Ot 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 ON RENAL DIALYSIS 11/25/2018 ZACHERY BRANTLEY MD, Ot Z99.81 DEPENDENCE ON SUPPLEMENTAL OXYGEN 12/16/2018 TAL LOMAX DO Ot A41.9 SEPSIS, UNSPECIFIED ORGANISM 12/16/2018 TAL LOMAX DO Ot D61.818 OTHER PANCYTOPENIA 12/16/2018 DAMI TAL Ot D64.9 ANEMIA, UNSPECIFIED 12/16/2018 DAMI TAL ZULETA Ot E03.9 HYPOTHYROIDISM, UNSPECIFIED 12/16/2018 DAMI TAL ZULETA Ot 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 12/16/2018 DAMI TAL ZULETA Ot E11.42 TYPE 2 DIABETES MELLITUS WITH DIABETIC P 12/16/2018 DAMI TAL ZULETA Ot E11.622 TYPE 2 DIABETES MELLITUS WITH OTHER SKIN 12/16/2018 DAMI TAL ZULETA Ot E78.00 PURE HYPERCHOLESTEROLEMIA, UNSPECIFIED 12/16/2018 DAMI TAL ZULETA Ot F41.9 ANXIETY DISORDER, UNSPECIFIED 12/16/2018 DAMI TAL ZULETA Ot 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 12/16/2018 DAMI TAL ZULETA Ot I50.9 HEART FAILURE, UNSPECIFIED 12/16/2018 DAMI TAL ZULETA Ot K21.9 GASTRO-ESOPHAGEAL REFLUX DISEASE WITHOUT 12/16/2018 DAMI TAL ZULETA Ot L03.115 CELLULITIS OF RIGHT LOWER LIMB 12/16/2018 DAMI TAL ZULETA Ot L03.116 CELLULITIS OF LEFT LOWER LIMB 12/16/2018 DAMI TAL ZULETA Ot L97.919 NON-PRS CHRONIC ULC UNSP PRT OF R LOW LE 12/16/2018 DAMI TAL ZULETA Ot N18.6 END STAGE RENAL DISEASE 12/16/2018 DAMI TAL ZULETA Ot R50.9 FEVER, UNSPECIFIED 12/16/2018 DAMI TAL ZULETA Ot R65.20 SEVERE SEPSIS WITHOUT SEPTIC SHOCK 12/16/2018 DAMI TAL ZULETA Ot R91.8 OTHER NONSPECIFIC ABNORMAL FINDING OF REVA 12/16/2018 TAL LOMAX DO Ot 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 12/16/2018 DAMI TAL ZULETA Ot Z79.82 CELLOPHANE WORKER (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 ASPIRIN 12/16/2018 DAMI TAL ZULETA Ot Z88.8 ALLERGY STATUS TO [facility] DRUG/MEDS/BIOL SUB 12/16/2018 DAMI TAL ZULETA Ot Z98.51 TUBAL LIGATION STATUS 12/16/2018 DAMI DO TAL K Ot 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 ON RENAL DIALYSIS 02/01/2019 DAMI DOTAL Ot A41.9 SEPSIS, UNSPECIFIED ORGANISM 02/01/2019 DAMI DO TAL Sadie Ot D61.818 OTHER PANCYTOPENIA 02/01/2019 DAMI DO TAL K Ot D64.9 ANEMIA, UNSPECIFIED 02/01/2019 DAMI DOTAL Ot E03.9 HYPOTHYROIDISM, UNSPECIFIED 02/01/2019 DAMI DO TAL K Ot 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 02/01/2019 DAMI DOTAL Ot E11.42 TYPE 2 DIABETES MELLITUS WITH DIABETIC P 02/01/2019 DAMI DOTAL Ot E11.622 TYPE 2 DIABETES MELLITUS WITH OTHER SKIN 02/01/2019 DAMI DOTAL Ot E78.00 PURE HYPERCHOLESTEROLEMIA, UNSPECIFIED 02/01/2019 DAMI DOTAL Ot F41.9 ANXIETY DISORDER, UNSPECIFIED 02/01/2019 DAMI DOTAL Ot 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 02/01/2019 DAMI DO TAL K Ot I50.9 HEART FAILURE, UNSPECIFIED 02/01/2019 DAMI TAL K Ot K21.9 GASTRO-ESOPHAGEAL REFLUX DISEASE WITHOUT 02/01/2019 DAMI DO TAL K Ot L03.115 CELLULITIS OF RIGHT LOWER LIMB 02/01/2019 DAMI TAL Ot L03.116 CELLULITIS OF LEFT LOWER LIMB 02/01/2019 DAMI DOTAL Ot L97.919 NON-PRS CHRONIC ULC UNSP PRT OF R LOW LE 02/01/2019 DAMI DOTAL Ot N18.6 END STAGE RENAL DISEASE 02/01/2019 DAMI DOTAL Ot R50.9 FEVER, UNSPECIFIED 02/01/2019 DAMI DOTAL Ot R65.20 SEVERE SEPSIS WITHOUT SEPTIC SHOCK 02/01/2019 DAMI DONOLAA K Ot R91.8 OTHER NONSPECIFIC ABNORMAL FINDING OF REVA 02/01/2019 DAMI TAL ZULETA Ot 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 02/01/2019 DAMI TAL Ot Z79.82 CELLOPHANE WORKER (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 ASPIRIN 02/01/2019 [facility] TAL K Ot Z88.8 ALLERGY STATUS TO [facility] DRUG/MEDS/BIOL SUB 02/01/2019 [facility] TAL K Ot Z98.51 TUBAL LIGATION STATUS 02/01/2019 [place] TAL K Ot 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 ON RENAL DIALYSIS 02/02/2019 [facility] Ot A41.9 SEPSIS, UNSPECIFIED ORGANISM 02/02/2019 [facility] TAL K Ot D61.818 OTHER PANCYTOPENIA 02/02/2019 [facility] TAL K Ot D64.9 ANEMIA, UNSPECIFIED 02/02/2019 [facility] Ot E03.9 HYPOTHYROIDISM, UNSPECIFIED 02/02/2019 [facility] Ot 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 02/02/2019 [facility] Ot E11.42 TYPE 2 DIABETES MELLITUS WITH DIABETIC P 02/02/2019 [facility] Ot E11.622 TYPE 2 DIABETES MELLITUS WITH OTHER SKIN 02/02/2019 [facility] TAL K Ot E78.00 PURE HYPERCHOLESTEROLEMIA, UNSPECIFIED 02/02/2019 [facility] Ot F41.9 ANXIETY DISORDER, UNSPECIFIED 02/02/2019 [facility] Ot 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 02/02/2019 [facility] Ot I50.9 HEART FAILURE, UNSPECIFIED 02/02/2019 [facility] Ot K21.9 GASTRO-ESOPHAGEAL REFLUX DISEASE WITHOUT 02/02/2019 [facility] Ot L03.115 CELLULITIS OF RIGHT LOWER LIMB 02/02/2019 [facility] Ot L03.116 CELLULITIS OF LEFT LOWER LIMB 02/02/2019 [facility] Ot L97.919 NON-PRS CHRONIC ULC UNSP PRT OF R LOW LE 02/02/2019 [facility] Ot N18.6 END STAGE RENAL DISEASE 02/02/2019 [facility] Ot R50.9 FEVER, UNSPECIFIED 02/02/2019 [facility] Ot R65.20 SEVERE SEPSIS WITHOUT SEPTIC SHOCK 02/02/2019 DAMI NOLA ZULETAA Sadie Ot R91.8 OTHER NONSPECIFIC ABNORMAL FINDING OF REVA 02/02/2019 DAMI TAL ZULETA Ot 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 02/02/2019 DAMI DO TAL K Ot Z79.82 NURSING HOME (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 ASPIRIN 02/02/2019 DAMI NOLA ZULETAA K Ot Z88.8 ALLERGY STATUS TO OT DRUG/MEDS/BIOL SUB 02/02/2019 TAL LOMAX DO Ot Z98.51 TUBAL LIGATION STATUS 02/02/2019 DAMI TAL ZULETA Ot 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 ON RENAL DIALYSIS 02/12/2019 KARON BELL, ZACHERY Glez Ot D64.9 ANEMIA, UNSPECIFIED 02/12/2019 ZACHERY BRANTLEY MD Ot E03.9 HYPOTHYROIDISM, UNSPECIFIED 02/12/2019 ZACHERY BRANTLEY MD Ot 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 02/12/2019 ZACHERY BRANTLEY MD Ot E11.40 TYPE 2 DIABETES MELLITUS WITH DIABETIC N 02/12/2019 ZACHERY BRANTLEY MD Ot E11.649 TYPE 2 DIABETES MELLITUS WITH HYPOGLYCEM 02/12/2019 KARON BELL, ZACHERY Glez Ot E78.00 PURE HYPERCHOLESTEROLEMIA, UNSPECIFIED 02/12/2019 ZACHERY BRANTLEY MD Ot F41.9 ANXIETY DISORDER, UNSPECIFIED 02/12/2019 ZACHERY BRANTLEY MD Ot I12.0 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 02/12/2019 ZACHERY BRANTLEY MD Ot K21.9 GASTRO-ESOPHAGEAL REFLUX DISEASE WITHOUT 02/12/2019 ZACHERY BRANTLEY MD Ot N18.6 END STAGE RENAL DISEASE 02/12/2019 ZACHERY BRANTLEY MD Ot R09.02 HYPOXEMIA 02/12/2019 ZACHERY BRANTLEY MD Ot R41.82 ALTERED MENTAL STATUS, UNSPECIFIED 02/12/2019 ZACHERY BRANTLEY MD Ot R50.9 FEVER, UNSPECIFIED 02/12/2019 ZACHERY BRANTLEY MD Ot S81.801A UNSPECIFIED OPEN WOUND, RIGHT LOWER LEG, 02/12/2019 ZACHERY BRANTLEY MD, Ot 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 02/12/2019 ZACHERY BRANTLEY MD Ot Z79.82 NURSING HOME (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 ASPIRIN 02/12/2019 ZACHERY BRANTLEY MD, Ot Z87.891 PERSONAL HISTORY OF NICOTINE DEPENDENCE 02/12/2019 ZACHERY BRANTLEY MD, Ot Z88.8 ALLERGY STATUS TO OT DRUG/MEDS/BIOL SUB 02/12/2019 ZACHERY BRANTLEY MD Ot Z98.51 TUBAL LIGATION STATUS 02/12/2019 ZACHERY BRANTLEY MD, Ot 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 ON RENAL DIALYSIS 02/12/2019 ZACHERY BRANTLEY MD, Ot Z99.81 DEPENDENCE ON SUPPLEMENTAL OXYGEN 03/06/2019 FAIZAN MUIR MD, Ot D64.9 ANEMIA, UNSPECIFIED 03/06/2019 FAIZAN MUIR MD, Ot E03.9 HYPOTHYROIDISM, UNSPECIFIED 03/06/2019 FAIZAN MUIR MD, Ot 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 03/06/2019 FAIZAN MUIR MD, Ot E11.42 TYPE 2 DIABETES MELLITUS WITH DIABETIC P 03/06/2019 FAIZAN MUIR MD, Ot E78.00 PURE HYPERCHOLESTEROLEMIA, UNSPECIFIED 03/06/2019 FAIZAN MUIR MD, Ot F41.9 ANXIETY DISORDER, UNSPECIFIED 03/06/2019 FAIZAN MUIR MD, Ot 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 03/06/2019 FAIZAN MUIR MD, Ot I50.9 HEART FAILURE, UNSPECIFIED 03/06/2019 FAIZAN MUIR MD, Ot K21.9 GASTRO-ESOPHAGEAL REFLUX DISEASE WITHOUT 03/06/2019 FAIZAN MUIR MD, Ot N18.6 END STAGE RENAL DISEASE 03/06/2019 FAIZAN MUIR MD, Ot R11.2 NAUSEA WITH VOMITING, UNSPECIFIED 03/06/2019 FAIZAN MUIR MD, Ot Z79.4 NURSING HOME (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 INSULIN 03/06/2019 FAIZAN MUIR MD, Ot Z79.82 NURSING HOME (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 ASPIRIN 03/06/2019 FAIZAN MUIR MD, Ot Z87.891 PERSONAL HISTORY OF NICOTINE DEPENDENCE 03/06/2019 FAIZAN MUIR MD, Ot Z88.8 ALLERGY STATUS TO [facility] DRUG/MEDS/BIOL SUB 03/06/2019 FAIZAN MUIR MD, Ot Z98.51 TUBAL LIGATION STATUS 03/06/2019 FAIZAN MUIR MD, Ot 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 ON RENAL DIALYSIS 03/06/2019 FAIZAN MUIR MD, Ot Z99.81 DEPENDENCE ON SUPPLEMENTAL OXYGEN 03/19/2019 DAMI DO TAL K Ot A41.9 SEPSIS, UNSPECIFIED ORGANISM 03/19/2019 DAMI DO TAL K Ot D64.9 ANEMIA, UNSPECIFIED 03/19/2019 DAMI DO TAL K Ot E03.9 HYPOTHYROIDISM, UNSPECIFIED 03/19/2019 DAMI DO TAL K Ot 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 03/19/2019 DAMI DO TAL K Ot E11.42 TYPE 2 DIABETES MELLITUS WITH DIABETIC P 03/19/2019 DAMI DO TAL K Ot E11.621 TYPE 2 DIABETES MELLITUS WITH FOOT ULCER 03/19/2019 DAMI DO TAL K Ot E11.649 TYPE 2 DIABETES MELLITUS WITH HYPOGLYCEM 03/19/2019 DAMI DO TAL K Ot E78.00 PURE HYPERCHOLESTEROLEMIA, UNSPECIFIED 03/19/2019 DAMI DO TAL K Ot F41.9 ANXIETY DISORDER, UNSPECIFIED 03/19/2019 DAMI DO TAL K Ot 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 03/19/2019 DAMI DO TAL K Ot I50.9 HEART FAILURE, UNSPECIFIED 03/19/2019 DAMI DO TAL K Ot K21.9 GASTRO-ESOPHAGEAL REFLUX DISEASE WITHOUT 03/19/2019 DAMI DO TAL K Ot L03.115 CELLULITIS OF RIGHT LOWER LIMB 03/19/2019 DAMI DO TAL K Ot L03.116 CELLULITIS OF LEFT LOWER LIMB 03/19/2019 DAMI DO TAL K Ot L97.509 NON-PRESSURE CHRONIC ULCER OTH PRT UNSP 03/19/2019 DAMI ZULETA TAL K Ot N18.6 END STAGE RENAL DISEASE 03/19/2019 TAL LOMAX DO Ot R09.02 HYPOXEMIA 03/19/2019 TAL LOMAX DO Ot R50.9 FEVER, UNSPECIFIED 03/19/2019 TAL LOMAX DO Ot R65.20 SEVERE SEPSIS WITHOUT SEPTIC SHOCK 03/19/2019 TAL LOMAX DO Ot 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 03/19/2019 TAL LOMAX DO Ot Z79.82 CELLOPHANE WORKER (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 ASPIRIN 03/19/2019 TAL LOMAX DO Ot Z88.8 ALLERGY STATUS TO [facility] DRUG/MEDS/BIOL SUB 03/19/2019 TAL LOMAX DO Ot Z98.51 TUBAL LIGATION STATUS 03/19/2019 TAL LOMAX DO Ot 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 Results Test Result Range Complete blood count (CBC) with automate d white blood cell (WBC) differential - 12/28/17 19:55 Blood leukocytes automated count (number/volume) 9.7 10*3/uL 4.3-11.0 Blood erythrocytes automated count (number/volume) 1.77 10*6/uL 4.35-5.85 Venous blood hemoglobin measurement (mass/volume) 5.3 g/dL 11.5-16.0 Blood hematocrit (volume fraction) 16 % 35-52 Automated erythrocyte mean corpuscular volume 91 [ foz_us] 80-99 Automated erythrocyte mean corpuscular h emoglobin (mass per erythrocyte) 30 pg 25-34 Automated erythrocyte mean corpuscular h emoglobin concentration measurement (mass/volume) 33 g/dL 32-36 Automated erythrocyte distribution width ratio 19. 9 % 10.0- 14.5 Automated blood platelet count (count/volume) 201 10*3/uL 130-400 Automated blood platelet mean volume measurement 9.8 [foz_us] 7.4-10.4 Automated blood neutrophils/100 leukocytes 84 % 42-75 Automated blood lymphocytes/100 leukocytes 6 % 12-44 Blood monocytes/100 leukocytes 10 % 0-12 Automated blood eosinophils/100 leukocytes 0 % 0-10 Automated blood basophils/100 leukocytes 0 % 0-10 Blood neutrophils automated count (number/volume) 8.1 10*3 1.8-7.8 Blood lymphocytes automated count (number/volume) 0.6 10*3 1.0-4.0 Blood monocytes automated count (number/volume) 1. 0 10*3 0.0-1.0 Automated eosinophil count 0.0 10*3/uL 0 .0-0.3 Automated blood basophil count (count/volume) 0.0 10*3/uL 0.0-0.1 PT panel in platelet poor plasma by coag ulation assay - 12/28/17 19:55 Prothrombin time (PT) in platelet poor plasma by coagu lation assay 17.3 s 12.2-14.7 INR in platelet poor plasma or blood by coagulation as say 1.4 0.8-1.4 Activated partial thromboplastin time (a PTT) in platelet poor plasma bycoagulation assay - 12/28/17 19:55 Activated partial thromboplastin time (a PTT) in platelet poor plasma bycoagulation assay 40 s 24-35 Blood manual differential performed dete ction - 12/28/17 19:55 Blood monocytes/100 leukocytes 5 % NRG Manual blood segmented neutrophils/100 leukocytes 83 % NRG Blood band neutrophils/100 leukocytes 6 % NRG Manual blood lymphocytes/100 leukocytes 6 % NRG Manual eosinophils/100 leukocytes in nose 0 % NRG Manual blood basophils/100 leukocytes 0 % NRG Blood erythrocyte morphology finding identification [facility] Comprehensive metabolic panel - 12/28/17 19:55 Serum or plasma sodium measurement (moles/volume) 133 mmol/L 135-145 Serum or plasma potassium measurement (moles/volume) 4.6 mmol/L 3.6-5.0 Serum or plasma chloride measurement (moles/volume) 94 mmol/L 98-107 Carbon dioxide 20 mmol/L 21-32 Serum or plasma anion gap determination (moles/volume) 19 mmol/L 5-14 Serum or plasma urea nitrogen measurement (mass/volume ) 33 mg/dL 7-18 Serum or plasma creatinine measurement (mass/volume) 3.81 mg/dL 0.60-1.30 Serum or plasma urea nitrogen/creatinine mass ratio 9 NRG Serum or plasma creatinine measurement w ith calculation of estimated glomerular filtration rate 12 NRG Serum or plasma glucose measurement (mass/volume) 155 mg/dL 70-105 Serum or plasma calcium measurement (mass/volume) 9.3 mg/dL 8.5-10.1 Serum or plasma total bilirubin measurement (mass/volu me) 0.3 mg/dL 0.1-1.0 Serum or plasma alkaline phosphatase charley surement (enzymatic activity/volume) 275 U/L 40-136 Serum or plasma aspartate aminotransfera se measurement (enzymatic activity/volume) 25 U/L 5-34 Serum or plasma alanine aminotransferase measurement (enzymatic activity/volume) 19 U/L 0-55 Serum or plasma protein measurement (mass/volume) 7.4 g/dL 6.4-8.2 Serum or plasma albumin measurement (mass/volume) 2.8 g/dL 3.2-4.5 CALCIUM CORRECTED 10.3 mg/dL 8.5-10.1 Capillary blood glucose measurement by g lucometer (mass/volume) - 12/28/17 20:01 Capillary blood glucose measurement by glucometer (mas s/volume) 208 mg/dL 70-110 Gram stain microscopy - 12/28/17 20:12 Gram stain microscopy Moderate yeast NR G Bacteria identification in wound by cult ure - 12/28/17 20:12 Bacteria identification in wound by culture MBF NRG FREE TEXT EXTERNAL LARGE AMOUNT NRG QUANTITY OF GROWTH . NRG RML Sensitivity Panel - 12/28/17 20:12 Gentamicin susceptibility test by minimum inhibitory c oncentration 8 NRG Levofloxacin susceptibility test by minimum inhibitory concentration 2 NRG Tobramycin susceptibility test by minimum inhibitory c oncentration S NRG Piperacillin/tazobactam susceptibility t est by minimum inhibitory concentration = NRG Ciprofloxacin susceptibility test by minimum inhibitor y concentration 2 NRG Meropenem susceptibility test by minimum inhibitory co ncentration 1 NRG Aztreonam susceptibility test by minimum inhibitory co ncentration <= NRG Cefepime susceptibility test by minimum inhibitory con centration 16 NRG Imipenem susceptibility test by minimum inhibitory con centration 2 NRG Ceftazidime susceptibility test by minimum inhibitory concentration 4 NRG Blood lactic acid measurement (moles/vol ume) - 12/28/17 20:22 Blood lactic acid measurement (moles/volume) 1.31 mmol/L 0.50-2.00 RED CELLS LEUKO REDUCED AS1 - 12/28/17 2 0:22 RED CELLS LEUKO REDUCED AS1 T RANSFUSED [id number]/28/172115 NRG Blood type T Indirect antibody screen pa kaity - 12/28/17 20:22 ABO+Rh group OP NRG Transfusion band number [id number] NRG Blood group antibody screen NEGATIVE NR G Bacterial blood culture - 12/28/17 20:22 Bacterial blood culture NG NRG Bacterial blood culture - 12/28/17 20:40 Bacterial blood culture NG NRG Complete blood count (CBC) with automate d white blood cell (WBC) differential - 01/05/18 19:09 Blood leukocytes automated count (number/volume) 4.1 10*3/uL 4.3-11.0 Blood erythrocytes automated count (number/volume) 2.58 10*6/uL 4.35-5.85 Venous blood hemoglobin measurement (mass/volume) 7.4 g/dL 11.5-16.0 Blood hematocrit (volume fraction) 23 % 35-52 Automated erythrocyte mean corpuscular volume 91 [ foz_us] 80-99 Automated erythrocyte mean corpuscular h emoglobin (mass per erythrocyte) 29 pg 25-34 Automated erythrocyte mean corpuscular h emoglobin concentration measurement (mass/volume) 32 g/dL 32-36 Automated erythrocyte distribution width ratio 19. 2 % 10.0- 14.5 Automated blood platelet count (count/volume) 180 10*3/uL 130-400 Automated blood platelet mean volume measurement 10.1 [foz_us] 7.4-10.4 Automated blood neutrophils/100 leukocytes 68 % 42-75 Automated blood lymphocytes/100 leukocytes 18 % 12-44 Blood monocytes/100 leukocytes 14 % 0-12 Automated blood eosinophils/100 leukocytes 0 % 0-10 Automated blood basophils/100 leukocytes 0 % 0-10 Blood neutrophils automated count (number/volume) 2.8 10*3 1.8-7.8 Blood lymphocytes automated count (number/volume) 0.7 10*3 1.0-4.0 Blood monocytes automated count (number/volume) 0. 6 10*3 0.0-1.0 Automated eosinophil count 0.0 10*3/uL 0 .0-0.3 Automated blood basophil count (count/volume) 0.0 10*3/uL 0.0-0.1 Blood lactic acid measurement (moles/vol ume) - 01/05/18 19:09 Blood lactic acid measurement (moles/volume) 1.19 mmol/L 0.50-2.00 Comprehensive metabolic panel - 01/05/18 19:09 Serum or plasma sodium measurement (moles/volume) 141 mmol/L 135-145 Serum or plasma potassium measurement (moles/volume) 3.9 mmol/L 3.6-5.0 Serum or plasma chloride measurement (moles/volume) 99 mmol/L 98-107 Carbon dioxide 18 mmol/L 21-32 Serum or plasma anion gap determination (moles/volume) 24 mmol/L 5-14 Serum or plasma urea nitrogen measurement (mass/volume ) 44 mg/dL 7-18 Serum or plasma creatinine measurement (mass/volume) 5.30 mg/dL 0.60-1.30 Serum or plasma urea nitrogen/creatinine mass ratio 8 NRG Serum or plasma creatinine measurement w ith calculation of estimated glomerular filtration rate 8 NRG Serum or plasma glucose measurement (mass/volume) 210 mg/dL 70-105 Serum or plasma calcium measurement (mass/volume) 9.3 mg/dL 8.5-10.1 Serum or plasma total bilirubin measurement (mass/volu me) 0.2 mg/dL 0.1-1.0 Serum or plasma alkaline phosphatase charley surement (enzymatic activity/volume) 194 U/L 40-136 Serum or plasma aspartate aminotransfera se measurement (enzymatic activity/volume) 13 U/L 5-34 Serum or plasma alanine aminotransferase measurement (enzymatic activity/volume) 14 U/L 0-55 Serum or plasma protein measurement (mass/volume) 7.8 g/dL 6.4-8.2 Serum or plasma albumin measurement (mass/volume) 3.0 g/dL 3.2-4.5 CALCIUM CORRECTED 10.1 mg/dL 8.5-10.1 Serum or plasma C reactive protein measu rement (mass/volume) - 01/05/18 19:09 Serum or plasma C reactive protein measurement (mass/v olume) 3.97 mg/dL 0.00-0.50 Bacterial blood culture - 01/05/18 19:09 Bacterial blood culture NG NRG Complete blood count (CBC) with automate d white blood cell (WBC) differential - 01/23/18 10:25 Blood leukocytes automated count (number/volume) 4.9 10*3/uL 4.3-11.0 Blood erythrocytes automated count (number/volume) 2.54 10*6/uL 4.35-5.85 Venous blood hemoglobin measurement (mass/volume) 7.6 g/dL 11.5-16.0 Blood hematocrit (volume fraction) 24 % 35-52 Automated erythrocyte mean corpuscular volume 94 [ foz_us] 80-99 Automated erythrocyte mean corpuscular h emoglobin (mass per erythrocyte) 30 pg 25-34 Automated erythrocyte mean corpuscular h emoglobin concentration measurement (mass/volume) 32 g/dL 32-36 Automated erythrocyte distribution width ratio 19. 7 % 10.0- 14.5 Automated blood platelet count (count/volume) 178 10*3/uL 130-400 Automated blood platelet mean volume measurement 9.8 [foz_us] 7.4-10.4 Automated blood neutrophils/100 leukocytes 66 % 42-75 Automated blood lymphocytes/100 leukocytes 16 % 12-44 Blood monocytes/100 leukocytes 18 % 0-12 Automated blood eosinophils/100 leukocytes 1 % 0-10 Automated blood basophils/100 leukocytes 0 % 0-10 Blood neutrophils automated count (number/volume) 3.2 10*3 1.8-7.8 Blood lymphocytes automated count (number/volume) 0.8 10*3 1.0-4.0 Blood monocytes automated count (number/volume) 0. 9 10*3 0.0-1.0 Automated eosinophil count 0.0 10*3/uL 0 .0-0.3 Automated blood basophil count (count/volume) 0.0 10*3/uL 0.0-0.1 Blood lactic acid measurement (moles/vol ume) - 01/23/18 10:25 Blood lactic acid measurement (moles/volume) 0.83 mmol/L 0.50-2.00 Comprehensive metabolic panel - 01/23/18 10:25 Serum or plasma sodium measurement (moles/volume) 136 mmol/L 135-145 Serum or plasma potassium measurement (moles/volume) 4.9 mmol/L 3.6-5.0 Serum or plasma chloride measurement (moles/volume) 100 mmol/L 98-107 Carbon dioxide 19 mmol/L 21-32 Serum or plasma anion gap determination (moles/volume) 17 mmol/L 5-14 Serum or plasma urea nitrogen measurement (mass/volume ) 51 mg/dL 7-18 Serum or plasma creatinine measurement (mass/volume) 5.05 mg/dL 0.60-1.30 Serum or plasma urea nitrogen/creatinine mass ratio 10 NRG Serum or plasma creatinine measurement w ith calculation of estimated glomerular filtration rate 9 NRG Serum or plasma glucose measurement (mass/volume) 39 mg/dL 70-105 Serum or plasma calcium measurement (mass/volume) 9.5 mg/dL 8.5-10.1 Serum or plasma total bilirubin measurement (mass/volu me) 0.3 mg/dL 0.1-1.0 Serum or plasma alkaline phosphatase charley surement (enzymatic activity/volume) 251 U/L 40-136 Serum or plasma aspartate aminotransfera se measurement (enzymatic activity/volume) 16 U/L 5-34 Serum or plasma alanine aminotransferase measurement (enzymatic activity/volume) 13 U/L 0-55 Serum or plasma protein measurement (mass/volume) 6.7 g/dL 6.4-8.2 Serum or plasma albumin measurement (mass/volume) 2.8 g/dL 3.2-4.5 CALCIUM CORRECTED 10.5 mg/dL 8.5-10.1 Bacterial blood culture - 01/23/18 10:25 Bacterial blood culture NG [facility] Capillary blood glucose measurement by g lucometer (mass/volume) - 01/23/18 10:28 Capillary blood glucose measurement by glucometer (mas s/volume) 47 mg/dL 70-110 Bacterial blood culture - 01/23/18 10:30 Bacterial blood culture NG [facility] Influenza virus A and B antigen detectio n - 01/23/18 11:04 FLU RESULT NEGATIVE FOR INFLUENZA A AND B ANTIGENS BY IA [facility] PT panel in platelet poor plasma by coag ulation assay - 01/23/18 11:07 Prothrombin time (PT) in platelet poor plasma by coagu lation assay 16.8 s 12.2-14.7 INR in platelet poor plasma or blood by coagulation as say 1.4 0.8-1.4 Activated partial thromboplastin time (a PTT) in platelet poor plasma bycoagulation assay - 01/23/18 11:07 Activated partial thromboplastin time (a PTT) in platelet poor plasma bycoagulation assay 40 s 24-35 Capillary blood glucose measurement by g lucometer (mass/volume) - 01/23/18 13:13 Capillary blood glucose measurement by glucometer (mas s/volume) 181 mg/dL 70-110 Complete blood count (CBC) with automate d white blood cell (WBC) differential - 01/29/18 20:10 Blood leukocytes automated count (number/volume) 4.0 10*3/uL 4.3-11.0 Blood erythrocytes automated count (number/volume) 2.20 10*6/uL 4.35-5.85 Venous blood hemoglobin measurement (mass/volume) 6.7 g/dL 11.5-16.0 Blood hematocrit (volume fraction) 21 % 35-52 Automated erythrocyte mean corpuscular volume 96 [ foz_us] 80-99 Automated erythrocyte mean corpuscular h emoglobin (mass per erythrocyte) 30 pg 25-34 Automated erythrocyte mean corpuscular h emoglobin concentration measurement (mass/volume) 32 g/dL 32-36 Automated erythrocyte distribution width ratio 19. 6 % 10.0- 14.5 Automated blood platelet count (count/volume) 135 10*3/uL 130-400 Automated blood platelet mean volume measurement 9.5 [foz_us] 7.4-10.4 Automated blood neutrophils/100 leukocytes 74 % 42-75 Automated blood lymphocytes/100 leukocytes 12 % 12-44 Blood monocytes/100 leukocytes 14 % 0-12 Automated blood eosinophils/100 leukocytes 0 % 0-10 Automated blood basophils/100 leukocytes 0 % 0-10 Blood neutrophils automated count (number/volume) 3.0 10*3 1.8-7.8 Blood lymphocytes automated count (number/volume) 0.5 10*3 1.0-4.0 Blood monocytes automated count (number/volume) 0. 6 10*3 0.0-1.0 Automated eosinophil count 0.0 10*3/uL 0 .0-0.3 Automated blood basophil count (count/volume) 0.0 10*3/uL 0.0-0.1 PT panel in platelet poor plasma by coag ulation assay - 01/29/18 20:10 Prothrombin time (PT) in platelet poor plasma by coagu lation assay 16.6 s 12.2-14.7 INR in platelet poor plasma or blood by coagulation as say 1.3 0.8-1.4 Activated partial thromboplastin time (a PTT) in platelet poor plasma bycoagulation assay - 01/29/18 20:10 Activated partial thromboplastin time (a PTT) in platelet poor plasma bycoagulation assay 40 s 24-35 Comprehensive metabolic panel - 01/29/18 20:10 Serum or plasma sodium measurement (moles/volume) 137 mmol/L 135-145 Serum or plasma potassium measurement (moles/volume) 4.5 mmol/L 3.6-5.0 Serum or plasma chloride measurement (moles/volume) 98 mmol/L 98-107 Carbon dioxide 23 mmol/L 21-32 Serum or plasma anion gap determination (moles/volume) 16 mmol/L 5-14 Serum or plasma urea nitrogen measurement (mass/volume ) 30 mg/dL 7-18 Serum or plasma creatinine measurement (mass/volume) 4.05 mg/dL 0.60-1.30 Serum or plasma urea nitrogen/creatinine mass ratio 7 NRG Serum or plasma creatinine measurement w ith calculation of estimated glomerular filtration rate 11 NRG Serum or plasma glucose measurement (mass/volume) 153 mg/dL 70-105 Serum or plasma calcium measurement (mass/volume) 9.2 mg/dL 8.5-10.1 Serum or plasma total bilirubin measurement (mass/volu me) 0.4 mg/dL 0.1-1.0 Serum or plasma alkaline phosphatase charley surement (enzymatic activity/volume) 314 U/L 40-136 Serum or plasma aspartate aminotransfera se measurement (enzymatic activity/volume) 15 U/L 5-34 Serum or plasma alanine aminotransferase measurement (enzymatic activity/volume) 12 U/L 0-55 Serum or plasma protein measurement (mass/volume) 7.1 g/dL 6.4-8.2 Serum or plasma albumin measurement (mass/volume) 3.0 g/dL 3.2-4.5 CALCIUM CORRECTED 10.0 mg/dL 8.5-10.1 Blood lactic acid measurement (moles/vol ume) - 01/29/18 20:10 Blood lactic acid measurement (moles/volume) 0.94 mmol/L 0.50-2.00 Influenza virus A and B antigen detectio n - 01/29/18 20:10 FLU RESULT NEGATIVE FOR INFLUENZA A AND B ANTIGENS BY IA NRG Bacterial blood culture - 01/29/18 20:10 Bacterial blood culture NG NRG Bacterial blood culture - 01/29/18 20:28 Bacterial blood culture NG NRG RED CELLS LEUKO REDUCED AS1 - 02/21/18 0 8:30 RED CELLS LEUKO REDUCED AS1 T RANSFUSED 02/21/18 0936 NR Blood type T Indirect antibody screen pa kaity - 02/21/18 08:30 ABO+Rh group OP NRG Transfusion band number [id number] NR Blood group antibody screen NEGATIVE NR G Automated blood complete blood count (he mogram) panel - 02/21/18 11:40 Blood leukocytes automated count (number/volume) 6.1 10*3/uL 4.3-11.0 Blood erythrocytes automated count (number/volume) 2.62 10*6/uL 4.35-5.85 Venous blood hemoglobin measurement (mass/volume) 8.0 g/dL 11.5-16.0 Blood hematocrit (volume fraction) 25 % 35-52 Automated erythrocyte mean corpuscular volume 96 [ foz_us] 80-99 Automated erythrocyte mean corpuscular h emoglobin (mass per erythrocyte) 31 pg 25-34 Automated erythrocyte mean corpuscular h emoglobin concentration measurement (mass/volume) 32 g/dL 32-36 Automated erythrocyte distribution width ratio 16. 5 % 10.0- 14.5 Automated blood platelet count (count/volume) 156 10*3/uL 130-400 Automated blood platelet mean volume measurement 9.4 [foz_us] 7.4-10.4 Complete blood count (CBC) with automate d white blood cell (WBC) differential - 02/23/18 23:55 Blood leukocytes automated count (number/volume) 6.9 10*3/uL 4.3-11.0 Blood erythrocytes automated count (number/volume) 2.52 10*6/uL 4.35-5.85 Venous blood hemoglobin measurement (mass/volume) 7.5 g/dL 11.5-16.0 Blood hematocrit (volume fraction) 24 % 35-52 Automated erythrocyte mean corpuscular volume 97 [ foz_us] 80-99 Automated erythrocyte mean corpuscular h emoglobin (mass per erythrocyte) 30 pg 25-34 Automated erythrocyte mean corpuscular h emoglobin concentration measurement (mass/volume) 31 g/dL 32-36 Automated erythrocyte distribution width ratio 16. 4 % 10.0- 14.5 Automated blood platelet count (count/volume) 144 10*3/uL 130-400 Automated blood platelet mean volume measurement 10.0 [foz_us] 7.4-10.4 Automated blood neutrophils/100 leukocytes 74 % 42-75 Automated blood lymphocytes/100 leukocytes 11 % 12-44 Blood monocytes/100 leukocytes 14 % 0-12 Automated blood eosinophils/100 leukocytes 0 % 0-10 Automated blood basophils/100 leukocytes 0 % 0-10 Blood neutrophils automated count (number/volume) 5.1 10*3 1.8-7.8 Blood lymphocytes automated count (number/volume) 0.8 10*3 1.0-4.0 Blood monocytes automated count (number/volume) 1. 0 10*3 0.0-1.0 Automated eosinophil count 0.0 10*3/uL 0 .0-0.3 Automated blood basophil count (count/volume) 0.0 10*3/uL 0.0-0.1 Comprehensive metabolic panel - 02/23/18 23:55 Serum or plasma sodium measurement (moles/volume) 137 mmol/L 135-145 Serum or plasma potassium measurement (moles/volume) 4.1 mmol/L 3.6-5.0 Serum or plasma chloride measurement (moles/volume) 97 mmol/L 98-107 Carbon dioxide 27 mmol/L 21-32 Serum or plasma anion gap determination (moles/volume) 13 mmol/L 5-14 Serum or plasma urea nitrogen measurement (mass/volume ) 26 mg/dL 7-18 Serum or plasma creatinine measurement (mass/volume) 3.51 mg/dL 0.60-1.30 Serum or plasma urea nitrogen/creatinine mass ratio 7 NRG Serum or plasma creatinine measurement w ith calculation of estimated glomerular filtration rate 13 NRG Serum or plasma glucose measurement (mass/volume) 156 mg/dL 70-105 Serum or plasma calcium measurement (mass/volume) 9.1 mg/dL 8.5-10.1 Serum or plasma total bilirubin measurement (mass/volu me) 0.4 mg/dL 0.1-1.0 Serum or plasma alkaline phosphatase charley surement (enzymatic activity/volume) 266 U/L 40-136 Serum or plasma aspartate aminotransfera se measurement (enzymatic activity/volume) 10 U/L 5-34 Serum or plasma alanine aminotransferase measurement (enzymatic activity/volume) 7 U/L 0-55 Serum or plasma protein measurement (mass/volume) 6.9 g/dL 6.4-8.2 Serum or plasma albumin measurement (mass/volume) 2.7 g/dL 3.2-4.5 CALCIUM CORRECTED 10.1 mg/dL 8.5-10.1 Serum or plasma C reactive protein measu rement (mass/volume) - 02/23/18 23:55 Serum or plasma C reactive protein measurement (mass/v olume) 21.24 mg/dL 0.00-0.50 Complete blood count (CBC) with automate d white blood cell (WBC) differential - 03/04/18 09:10 Blood leukocytes automated count (number/volume) 10.7 10*3/uL 4.3-11.0 Blood erythrocytes automated count (number/volume) 2.88 10*6/uL 4.35-5.85 Venous blood hemoglobin measurement (mass/volume) 8.5 g/dL 11.5-16.0 Blood hematocrit (volume fraction) 28 % 35-52 Automated erythrocyte mean corpuscular volume 97 [ foz_us] 80-99 Automated erythrocyte mean corpuscular h emoglobin (mass per erythrocyte) 30 pg 25-34 Automated erythrocyte mean corpuscular h emoglobin concentration measurement (mass/volume) 31 g/dL 32-36 Automated erythrocyte distribution width ratio 16. 7 % 10.0- 14.5 Automated blood platelet count (count/volume) 184 10*3/uL 130-400 Automated blood platelet mean volume measurement 10.0 [foz_us] 7.4-10.4 Automated blood neutrophils/100 leukocytes 79 % 42-75 Automated blood lymphocytes/100 leukocytes 12 % 12-44 Blood monocytes/100 leukocytes 9 % 0-12 Automated blood eosinophils/100 leukocytes 0 % 0-10 Automated blood basophils/100 leukocytes 0 % 0-10 Blood neutrophils automated count (number/volume) 8.5 10*3 1.8-7.8 Blood lymphocytes automated count (number/volume) 1.3 10*3 1.0-4.0 Blood monocytes automated count (number/volume) 0. 9 10*3 0.0-1.0 Automated eosinophil count 0.0 10*3/uL 0 .0-0.3 Automated blood basophil count (count/volume) 0.0 10*3/uL 0.0-0.1 PT panel in platelet poor plasma by coag ulation assay - 03/04/18 09:10 Prothrombin time (PT) in platelet poor plasma by coagu lation assay 16.9 s 12.2-14.7 INR in platelet poor plasma or blood by coagulation as say 1.4 0.8-1.4 Activated partial thromboplastin time (a PTT) in platelet poor plasma bycoagulation assay - 03/04/18 09:10 Activated partial thromboplastin time (a PTT) in platelet poor plasma bycoagulation assay 49 s 24-35 Comprehensive metabolic panel - 03/04/18 09:10 Serum or plasma sodium measurement (moles/volume) 131 mmol/L 135-145 Serum or plasma potassium measurement (moles/volume) 4.9 mmol/L 3.6-5.0 Serum or plasma chloride measurement (moles/volume) 94 mmol/L 98-107 Carbon dioxide 22 mmol/L 21-32 Serum or plasma anion gap determination (moles/volume) 15 mmol/L 5-14 Serum or plasma urea nitrogen measurement (mass/volume ) 59 mg/dL 7-18 Serum or plasma creatinine measurement (mass/volume) 4.92 mg/dL 0.60-1.30 Serum or plasma urea nitrogen/creatinine mass ratio 12 NRG Serum or plasma creatinine measurement w ith calculation of estimated glomerular filtration rate 9 NRG Serum or plasma glucose measurement (mass/volume) 113 mg/dL 70-105 Serum or plasma calcium measurement (mass/volume) 9.2 mg/dL 8.5-10.1 Serum or plasma total bilirubin measurement (mass/volu me) 0.3 mg/dL 0.1-1.0 Serum or plasma alkaline phosphatase charley surement (enzymatic activity/volume) 215 U/L 40-136 Serum or plasma aspartate aminotransfera se measurement (enzymatic activity/volume) 11 U/L 5-34 Serum or plasma alanine aminotransferase measurement (enzymatic activity/volume) < U/L 0-55 Serum or plasma protein measurement (mass/volume) 6.4 g/dL 6.4-8.2 Serum or plasma albumin measurement (mass/volume) 2.4 g/dL 3.2-4.5 CALCIUM CORRECTED 10.5 mg/dL 8.5-10.1 Bacterial blood culture - 03/04/18 09:10 Bacterial blood culture NG NRG Blood lactic acid measurement (moles/vol ume) - 03/04/18 09:46 Blood lactic acid measurement (moles/volume) 0.76 mmol/L 0.50-2.00 Bacterial blood culture - 03/04/18 09:46 Bacterial blood culture NG NRG Gram stain microscopy - 03/04/18 10:34 Gram stain microscopy Many Gram negative bacilli NRG Bacteria identification in wound by cult ure - 03/04/18 10:34 Bacteria identification in wound by culture [id number] NRG FREE TEXT EXTERNAL SENSITIVITY REPORTED 03/08/18 1 1:05 NRG QUANTITY OF GROWTH Moderate NRG FREE TEXT ENTRY 2 ID REPORTED 03/07/18 11:05 NRG RML Sensitivity Panel - 03/04/18 10:34 Gentamicin susceptibility test by minimum inhibitory c oncentration <= NRG Levofloxacin susceptibility test by minimum inhibitory concentration 2 NRG Tobramycin susceptibility test by minimum inhibitory c oncentration S NRG Piperacillin/tazobactam susceptibility t est by minimum inhibitory concentration = NRG Ciprofloxacin susceptibility test by minimum inhibitor y concentration 1 NRG Meropenem susceptibility test by minimum inhibitory co ncentration 1 NRG Aztreonam susceptibility test by minimum inhibitory co ncentration <= NRG Cefepime susceptibility test by minimum inhibitory con centration 2 NRG Imipenem susceptibility test by minimum inhibitory con centration <= NRG Ceftazidime susceptibility test by minimum inhibitory concentration 4 NRG RML Sensitivity Panel - 03/04/18 10:34 Gentamicin susceptibility test by minimum inhibitory c oncentration <= NRG Trimethoprim/sulfamethoxazole susceptibi lity test by minimum inhibitoryconcentration <= NRG Levofloxacin susceptibility test by minimum inhibitory concentration <= NRG Ampicillin susceptibility test by minimum inhibitory c oncentration > NRG Cefazolin susceptibility test by minimum inhibitory co ncentration <= NRG Ceftriaxone susceptibility test by minimum inhibitory concentration <= NRG Piperacillin/tazobactam susceptibility t est by minimum inhibitory concentration = NRG Ciprofloxacin susceptibility test by minimum inhibitor y concentration <= NRG Meropenem susceptibility test by minimum inhibitory co ncentration <= NRG Amoxicillin and clavulanate potassium susc WOLF <= NRG Imipenem susceptibility test by minimum inhibitory con centration S NRG RML Sensitivity Panel - 03/04/18 10:34 Gentamicin susceptibility test by minimum inhibitory c oncentration <= NRG Trimethoprim/sulfamethoxazole susceptibi lity test by minimum inhibitoryconcentration S NRG Levofloxacin susceptibility test by minimum inhibitory concentration <= NRG Ampicillin susceptibility test by minimum inhibitory c oncentration R NRG Cefazolin susceptibility test by minimum inhibitory co ncentration R NRG Ceftriaxone susceptibility test by minimum inhibitory concentration <= NRG Piperacillin/tazobactam susceptibility t est by minimum inhibitory concentration S NRG Ciprofloxacin susceptibility test by minimum inhibitor y concentration <= NRG Meropenem susceptibility test by minimum inhibitory co ncentration <= NRG Amoxicillin and clavulanate potassium susc WOLF R NRG Imipenem susceptibility test by minimum inhibitory con centration S NRG Complete blood count (CBC) with automate d white blood cell (WBC) differential - 04/15/18 22:10 Blood leukocytes automated count (number/volume) 6.7 10*3/uL 4.3-11.0 Blood erythrocytes automated count (number/volume) 2.23 10*6/uL 4.35-5.85 Venous blood hemoglobin measurement (mass/volume) 6.7 g/dL 11.5-16.0 Blood hematocrit (volume fraction) 22 % 35-52 Automated erythrocyte mean corpuscular volume 97 [ foz_us] 80-99 Automated erythrocyte mean corpuscular h emoglobin (mass per erythrocyte) 30 pg 25-34 Automated erythrocyte mean corpuscular h emoglobin concentration measurement (mass/volume) 31 g/dL 32-36 Automated erythrocyte distribution width ratio 18. 7 % 10.0- 14.5 Automated blood platelet count (count/volume) 144 10*3/uL 130-400 Automated blood platelet mean volume measurement 8.7 [foz_us] 7.4-10.4 Automated blood neutrophils/100 leukocytes 80 % 42-75 Automated blood lymphocytes/100 leukocytes 11 % 12-44 Blood monocytes/100 leukocytes 8 % 0-12 Automated blood eosinophils/100 leukocytes 0 % 0-10 Automated blood basophils/100 leukocytes 0 % 0-10 Blood neutrophils automated count (number/volume) 5.4 10*3 1.8-7.8 Blood lymphocytes automated count (number/volume) 0.7 10*3 1.0-4.0 Blood monocytes automated count (number/volume) 0. 6 10*3 0.0-1.0 Automated eosinophil count 0.0 10*3/uL 0 .0-0.3 Automated blood basophil count (count/volume) 0.0 10*3/uL 0.0-0.1 Comprehensive metabolic panel - 04/15/18 22:10 Serum or plasma sodium measurement (moles/volume) 134 mmol/L 135-145 Serum or plasma potassium measurement (moles/volume) 4.2 mmol/L 3.6-5.0 Serum or plasma chloride measurement (moles/volume) 94 mmol/L 98-107 Carbon dioxide 26 mmol/L 21-32 Serum or plasma anion gap determination (moles/volume) 14 mmol/L 5-14 Serum or plasma urea nitrogen measurement (mass/volume ) 32 mg/dL 7-18 Serum or plasma creatinine measurement (mass/volume) 3.76 mg/dL 0.60-1.30 Serum or plasma urea nitrogen/creatinine mass ratio 9 NRG Serum or plasma creatinine measurement w ith calculation of estimated glomerular filtration rate 12 NRG Serum or plasma glucose measurement (mass/volume) 138 mg/dL 70-105 Serum or plasma calcium measurement (mass/volume) 8.9 mg/dL 8.5-10.1 Serum or plasma total bilirubin measurement (mass/volu me) 0.2 mg/dL 0.1-1.0 Serum or plasma alkaline phosphatase charley surement (enzymatic activity/volume) 188 U/L 40-136 Serum or plasma aspartate aminotransfera se measurement (enzymatic activity/volume) 9 U/L 5-34 Serum or plasma alanine aminotransferase measurement (enzymatic activity/volume) < U/L 0-55 Serum or plasma protein measurement (mass/volume) 5.6 g/dL 6.4-8.2 Serum or plasma albumin measurement (mass/volume) 2.1 g/dL 3.2-4.5 CALCIUM CORRECTED 10.4 mg/dL 8.5-10.1 RED CELLS LEUKO REDUCED AS1 - 04/15/18 2 2:30 RED CELLS LEUKO REDUCED AS1 T RANSFUSED 04/15/18 [id number] [facility] Blood type T Indirect antibody screen pa kaity - 04/15/18 22:30 ABO+Rh group OP NR Transfusion band number [id number] [facility] Blood group antibody screen NEGATIVE NR G Complete blood count (CBC) with automate d white blood cell (WBC) differential - 04/17/18 15:33 Blood leukocytes automated count (number/volume) 4.5 10*3/uL 4.3-11.0 Blood erythrocytes automated count (number/volume) 1.48 10*6/uL 4.35-5.85 Venous blood hemoglobin measurement (mass/volume) 4.3 g/dL 11.5-16.0 Blood hematocrit (volume fraction) 14 % 35-52 Automated erythrocyte mean corpuscular volume 97 [ foz_us] 80-99 Automated erythrocyte mean corpuscular h emoglobin (mass per erythrocyte) 29 pg 25-34 Automated erythrocyte mean corpuscular h emoglobin concentration measurement (mass/volume) 30 g/dL 32-36 Automated erythrocyte distribution width ratio 18. 2 % 10.0- 14.5 Automated blood platelet count (count/volume) 133 10*3/uL 130-400 Automated blood platelet mean volume measurement 9.9 [foz_us] 7.4-10.4 Automated blood neutrophils/100 leukocytes 65 % 42-75 Automated blood lymphocytes/100 leukocytes 20 % 12-44 Blood monocytes/100 leukocytes 14 % 0-12 Automated blood eosinophils/100 leukocytes 0 % 0-10 Automated blood basophils/100 leukocytes 0 % 0-10 Blood neutrophils automated count (number/volume) 2.9 10*3 1.8-7.8 Blood lymphocytes automated count (number/volume) 0.9 10*3 1.0-4.0 Blood monocytes automated count (number/volume) 0. 6 10*3 0.0-1.0 Automated eosinophil count 0.0 10*3/uL 0 .0-0.3 Automated blood basophil count (count/volume) 0.0 10*3/uL 0.0-0.1 PT panel in platelet poor plasma by coag ulation assay - 04/17/18 15:33 Prothrombin time (PT) in platelet poor plasma by coagu lation assay 18.6 s 12.2-14.7 INR in platelet poor plasma or blood by coagulation as say 1.6 0.8-1.4 Activated partial thromboplastin time (a PTT) in platelet poor plasma bycoagulation assay - 04/17/18 15:33 Activated partial thromboplastin time (a PTT) in platelet poor plasma bycoagulation assay 34 s 24-35 Comprehensive metabolic panel - 04/17/18 15:33 Serum or plasma sodium measurement (moles/volume) 141 mmol/L 135-145 Serum or plasma potassium measurement (moles/volume) 4.1 mmol/L 3.6-5.0 Serum or plasma chloride measurement (moles/volume) 101 mmol/L 98-107 Carbon dioxide 25 mmol/L 21-32 Serum or plasma anion gap determination (moles/volume) 15 mmol/L 5-14 Serum or plasma urea nitrogen measurement (mass/volume ) 18 mg/dL 7-18 Serum or plasma creatinine measurement (mass/volume) 2.68 mg/dL 0.60-1.30 Serum or plasma urea nitrogen/creatinine mass ratio 7 NRG Serum or plasma creatinine measurement w ith calculation of estimated glomerular filtration rate 18 NRG Serum or plasma glucose measurement (mass/volume) 187 mg/dL 70-105 Serum or plasma calcium measurement (mass/volume) 8.2 mg/dL 8.5-10.1 Serum or plasma total bilirubin measurement (mass/volu me) 0.3 mg/dL 0.1-1.0 Serum or plasma alkaline phosphatase charley surement (enzymatic activity/volume) 179 U/L 40-136 Serum or plasma aspartate aminotransfera se measurement (enzymatic activity/volume) 16 U/L 5-34 Serum or plasma alanine aminotransferase measurement (enzymatic activity/volume) < U/L 0-55 Serum or plasma protein measurement (mass/volume) 4.5 g/dL 6.4-8.2 Serum or plasma albumin measurement (mass/volume) 1.7 g/dL 3.2-4.5 CALCIUM CORRECTED 10.0 mg/dL 8.5-10.1 FRESH FROZEN PLASMA - 04/17/18 15:33 FRESH FROZEN PLASMA TRANSFUSE D 04/17/18 [id number] [facility] RED CELLS LEUKO REDUCED AS1 - 04/17/18 1 5:33 RED CELLS LEUKO REDUCED AS1 N OT AVAILABLE [facility] Blood type T Indirect antibody screen pa kaity - 04/17/18 15:33 ABO+Rh group OP [facility] Transfusion band number [id number] [facility] Blood group antibody screen NEGATIVE NR G Serum or plasma C reactive protein measu rement (mass/volume) - 04/17/18 15:33 Serum or plasma C reactive protein measurement (mass/v olume) 16.64 mg/dL 0.00-0.50 Fibrinogen measurement in platelet poor plasma by coagulation assay (mass/volume) - 04/17/18 15:33 Fibrinogen measurement in platelet poor plasma by coagulation assay (mass/volume) 474 mg/dL 221-496 Fibrin D-dimer FEU measurement in platel et poor plasma (mass/volume) - 04/17/18 15:33 Fibrin D-dimer FEU measurement in platelet poor plasma (mass/volume) 2.35 ug/mL 0.00-0.49 Blood lactic acid measurement (moles/vol ume) - 04/17/18 17:50 Blood lactic acid measurement (moles/volume) 2.86 mmol/L 0.50-2.00 Bacterial blood culture - 04/17/18 17:50 FREE TEXT EXTERNAL SUSCEPTIBILITY REPORTED [id number]. NRG QUANTITY OF GROWTH Isolated NRG Bacterial blood culture [id number] NRG FREE TEXT ENTRY 2 RESISTANT ORGANISM/CONTACT PRECA UTIONS NRG [facility] - 04/17/18 17:5 0 Oxacillin susceptibility test by minimum inhibitory co ncentration R NRG Clindamycin susceptibility test by minimum inhibitory concentration > NRG Erythromycin susceptibility test by minimum inhibitory concentration > NRG Trimethoprim/sulfamethoxazole susceptibi lity test by minimum inhibitoryconcentration S NRG Vancomycin susceptibility test by minimum inhibitory c oncentration 1 NRG Levofloxacin susceptibility test by minimum inhibitory concentration > NRG Rifampin susceptibility test by minimum inhibitory con centration <= NRG Cefazolin susceptibility test by minimum inhibitory co ncentration > NRG Penicillin G susceptibility test by minimum inhibitory concentration > NRG Minocycline susc WOLF <= NRG Bacterial blood culture - 04/17/18 18:00 FREE TEXT 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 RESISTANT ORGANISM/CONTACT PREC AUTIONS NRG QUANTITY OF GROWTH Isolated NRG Bacterial blood culture [id number] NRG Serum or plasma lactate measurement (mol es/volume) - 04/17/18 19:50 Serum or plasma lactate measurement (moles/volume) 1.19 mmol/L 0.50-2.00 Capillary blood glucose measurement by g lucometer (mass/volume) - 05/15/18 06:34 Capillary blood glucose measurement by glucometer (mas s/volume) 59 mg/dL 70-110 Methicillin resistant Staphylococcus aur eus (MRSA) screening culture - 05/15/18 06:45 Methicillin resistant Staphylococcus aureus (MRSA) scr eening culture NEG NRG Bacteria identification in isolate by an aerobe culture - 05/15/18 07:40 Bacteria identification in isolate by anaerobe culture NOANA NRG Gram stain microscopy - 05/15/18 07:40 Gram stain microscopy No bacteria seen NRG Bacteria identification in wound by cult ure - 05/15/18 07:40 Bacteria identification in wound by culture [id number] NRG FREE TEXT EXTERNAL SUSCEPTIBILITY REPORT RCD 05/18 13:05 NRG QUANTITY OF GROWTH Rare NRG FREE TEXT ENTRY 2 ID REPORTED 05/16/18 10:05 NRG FREE TEXT ENTRY 3 MOXIFLOXACIN WOLF:>2 (NO INTERP) NRG [facility] Sensitivity Panel - 05/15/18 07:40 Gentamicin susceptibility test by minimum inhibitory c oncentration <= NRG Levofloxacin susceptibility test by minimum inhibitory concentration > NRG Tobramycin susceptibility test by minimum inhibitory c oncentration S NRG Piperacillin/tazobactam susceptibility t est by minimum inhibitory concentration > NRG Ciprofloxacin susceptibility test by minimum inhibitor y concentration 2 NRG Meropenem susceptibility test by minimum inhibitory co ncentration 1 NRG Aztreonam susceptibility test by minimum inhibitory co ncentration <= NRG Cefepime susceptibility test by minimum inhibitory con centration <= NRG Imipenem susceptibility test by minimum inhibitory con centration 8 NRG Ceftazidime susceptibility test by minimum inhibitory concentration > NRG RML Sensitivity Panel - 05/15/18 07:40 Oxacillin susceptibility test by minimum inhibitory co ncentration R NRG Clindamycin susceptibility test by minimum inhibitory concentration > NRG Erythromycin susceptibility test by minimum inhibitory concentration > NRG Trimethoprim/sulfamethoxazole susceptibi lity test by minimum inhibitoryconcentration S NRG Vancomycin susceptibility test by minimum inhibitory c oncentration 1 NRG Levofloxacin susceptibility test by minimum inhibitory concentration > NRG Rifampin susceptibility test by minimum inhibitory con centration <= NRG Cefazolin susceptibility test by minimum inhibitory co ncentration > NRG Linezolid susceptibility test by minimum inhibitory co ncentration <= NRG Penicillin G susceptibility test by minimum inhibitory concentration > NRG Minocycline susc WOLF <= NRG C FUNGUS SPUTUM FLUID TISSUE - 05/15/18 07:40 C FUNGUS SPUTUM FLUID TISSUE NG N RG Bacteria identification in isolate by an aerobe culture - 05/15/18 07:45 Bacteria identification in isolate by anaerobe culture NOANA NRG Gram stain microscopy - 05/15/18 07:45 Gram stain microscopy No bacteria seen NRG Bacteria identification in wound by cult ure - 05/15/18 07:45 Bacteria identification in wound by culture NG NRG C FUNGUS SPUTUM FLUID TISSUE - 05/15/18 07:45 C FUNGUS SPUTUM FLUID TISSUE NG N RG RED CELLS LEUKO REDUCED AS1 - 05/16/18 1 7:30 RED CELLS LEUKO REDUCED AS1 T RANSFUSED 05/16/18 1840 NRG Blood type T Indirect antibody screen [facility] - 05/16/18 17:30 ABO+Rh group OP NRG Transfusion band number [id number] NRG Blood group antibody screen NEGATIVE NR G RED CELLS LEUKO REDUCED AS1 - 06/14/18 0 7:45 RED CELLS LEUKO REDUCED AS1 N OT AVAILABLE NRG Blood type T Indirect antibody screen [facility] ([facility] - 06/14/18 07:45 ABO+Rh group OP NRG Transfusion band number [id number] NRG Blood group antibody screen NEGATIVE NR G Whole blood hemoglobin and hematocrit [facility] 06/14/18 11:30 Venous blood hemoglobin measurement (mass/volume) 6.9 g/dL 11.5-16.0 Blood hematocrit (volume fraction) 23 % 35-52 Whole blood hemoglobin and hematocrit [facility] 06/14/18 14:38 Venous blood hemoglobin measurement (mass/volume) 8.0 g/dL 11.5-16.0 Blood hematocrit (volume fraction) 26 % 35-52 Complete blood count (CBC) with automate d white blood cell (WBC) differential - 06/20/18 09:35 Blood leukocytes automated count (number/volume) 4.2 10*3/uL 4.3-11.0 Blood erythrocytes automated count (number/volume) 2.63 10*6/uL 4.35-5.85 Venous blood hemoglobin measurement (mass/volume) 7.4 g/dL 11.5-16.0 Blood hematocrit (volume fraction) 24 % 35-52 Automated erythrocyte mean corpuscular volume 91 [ foz_us] 80-99 Automated erythrocyte mean corpuscular h emoglobin (mass per erythrocyte) 28 pg 25-34 Automated erythrocyte mean corpuscular h emoglobin concentration measurement (mass/volume) 31 g/dL 32-36 Automated erythrocyte distribution width ratio 16. 3 % 10.0- 14.5 Automated blood platelet count (count/volume) 123 10*3/uL 130-400 Automated blood platelet mean volume measurement 10.0 [foz_us] 7.4-10.4 Automated blood neutrophils/100 leukocytes 68 % 42-75 Automated blood lymphocytes/100 leukocytes 18 % 12-44 Blood monocytes/100 leukocytes 13 % 0-12 Automated blood eosinophils/100 leukocytes 1 % 0-10 Automated blood basophils/100 leukocytes 0 % 0-10 Blood neutrophils automated count (number/volume) 2.9 10*3 1.8-7.8 Blood lymphocytes automated count (number/volume) 0.8 10*3 1.0-4.0 Blood monocytes automated count (number/volume) 0. 5 10*3 0.0-1.0 Automated eosinophil count 0.0 10*3/uL 0 .0-0.3 Automated blood basophil count (count/volume) 0.0 10*3/uL 0.0-0.1 Whole blood basic metabolic panel - 05/26 10/12 09:35 Serum or plasma sodium measurement (moles/volume) 138 mmol/L 135-145 Serum or plasma potassium measurement (moles/volume) 4.5 mmol/L 3.6-5.0 Serum or plasma chloride measurement (moles/volume) 93 mmol/L 98-107 Carbon dioxide 26 mmol/L 21-32 Serum or plasma anion gap determination (moles/volume) 19 mmol/L 5-14 Serum or plasma urea nitrogen measurement (mass/volume ) 34 mg/dL 7-18 Serum or plasma creatinine measurement (mass/volume) 4.22 mg/dL 0.60-1.30 Serum or plasma urea nitrogen/creatinine mass ratio 8 NRG Serum or plasma creatinine measurement w ith calculation of estimated glomerular filtration rate 11 NRG Serum or plasma glucose measurement (mass/volume) 147 mg/dL 70-105 Serum or plasma calcium measurement (mass/volume) 9.2 mg/dL 8.5-10.1 RED CELLS LEUKO REDUCED AS1 - 07/05/18 0 9:10 RED CELLS LEUKO REDUCED AS1 T RANSFUSED 07/05/18 1035 NR Blood type T Indirect antibody screen [facility] 07/05/18 09:10 ABO+Rh group OP NR Transfusion band number [id number] NR Blood group antibody screen NEGATIVE NR G Whole blood hemoglobin and hematocrit [facility] 07/05/18 14:00 Venous blood hemoglobin measurement (mass/volume) 7.1 g/dL 11.5-16.0 Blood hematocrit (volume fraction) 23 % 35-52 RED CELLS LEUKO REDUCED AS1 - 08/01/18 0 9:38 RED CELLS LEUKO REDUCED AS1 T RANSFUSED 08/02/18 1123 NRG Blood type T Indirect antibody screen [facility] - 08/01/18 09:38 ABO+Rh group OP NRG Transfusion band number [id number] NRG Blood group antibody screen NEGATIVE NR G Whole blood hemoglobin and hematocrit [facility] - 08/02/18 13:35 Venous blood hemoglobin measurement (mass/volume) 8.7 g/dL 11.5-16.0 Blood hematocrit (volume fraction) 28 % 35-52 PT panel in platelet poor plasma by coag ulation assay - 11/25/18 21:07 Prothrombin time (PT) in platelet poor plasma by coagu lation assay 16.8 s 12.2-14.7 INR in platelet poor plasma or blood by coagulation as say 1.3 0.8-1.4 Activated partial thromboplastin time (a PTT) in platelet poor plasma bycoagulation assay - 11/25/18 21:07 Activated partial thromboplastin time (a PTT) in platelet poor plasma bycoagulation assay 37 s 24-35 Complete blood count (CBC) with automate d white blood cell (WBC) differential - 11/25/18 21:07 Blood leukocytes automated count (number/volume) 6.7 10*3/uL 4.3-11.0 Blood erythrocytes automated count (number/volume) 3.43 10*6/uL 4.35-5.85 Venous blood hemoglobin measurement (mass/volume) 10.2 g/dL 11.5-16.0 Blood hematocrit (volume fraction) 33 % 35-52 Automated erythrocyte mean corpuscular volume 96 [ foz_us] 80-99 Automated erythrocyte mean corpuscular h emoglobin (mass per erythrocyte) 30 pg 25-34 Automated erythrocyte mean corpuscular h emoglobin concentration measurement (mass/volume) 31 g/dL 32-36 Automated erythrocyte distribution width ratio 16. 1 % 10.0- 14.5 Automated blood platelet count (count/volume) 132 10*3/uL 130-400 Automated blood platelet mean volume measurement 10.1 [foz_us] 7.4-10.4 Automated blood neutrophils/100 leukocytes 87 % 42-75 Automated blood lymphocytes/100 leukocytes 6 % 12-44 Blood monocytes/100 leukocytes 7 % 0-12 Automated blood eosinophils/100 leukocytes 0 % 0-10 Automated blood basophils/100 leukocytes 0 % 0-10 Blood neutrophils automated count (number/volume) 5.9 10*3 1.8-7.8 Blood lymphocytes automated count (number/volume) 0.4 10*3 1.0-4.0 Blood monocytes automated count (number/volume) 0. 5 10*3 0.0-1.0 Automated eosinophil count 0.0 10*3/uL 0 .0-0.3 Automated blood basophil count (count/volume) 0.0 10*3/uL 0.0-0.1 Blood lactic acid measurement (moles/vol ume) - 11/25/18 21:07 Blood lactic acid measurement (moles/volume) 1.83 mmol/L 0.50-2.00 Comprehensive metabolic panel - 11/25/18 21:07 Serum or plasma sodium measurement (moles/volume) 139 mmol/L 135-145 Serum or plasma potassium measurement (moles/volume) 4.2 mmol/L 3.6-5.0 Serum or plasma chloride measurement (moles/volume) 94 mmol/L 98-107 Carbon dioxide 27 mmol/L 21-32 Serum or plasma anion gap determination (moles/volume) 18 mmol/L 5-14 Serum or plasma urea nitrogen measurement (mass/volume ) 23 mg/dL 7-18 Serum or plasma creatinine measurement (mass/volume) 3.55 mg/dL 0.60-1.30 Serum or plasma urea nitrogen/creatinine mass ratio 6 NRG Serum or plasma creatinine measurement w ith calculation of estimated glomerular filtration rate 13 NRG Serum or plasma glucose measurement (mass/volume) 116 mg/dL 70-105 Serum or plasma calcium measurement (mass/volume) 9.9 mg/dL 8.5-10.1 Serum or plasma total bilirubin measurement (mass/volu me) 0.4 mg/dL 0.1-1.0 Serum or plasma alkaline phosphatase charley surement (enzymatic activity/volume) 268 U/L 40-136 Serum or plasma aspartate aminotransfera se measurement (enzymatic activity/volume) 15 U/L 5-34 Serum or plasma alanine aminotransferase measurement (enzymatic activity/volume) 7 U/L 0-55 Serum or plasma protein measurement (mass/volume) 7.7 g/dL 6.4-8.2 Serum or plasma albumin measurement (mass/volume) 3.0 g/dL 3.2-4.5 CALCIUM CORRECTED 10.7 mg/dL 8.5-10.1 Manual absolute plasma cell count - 04/14 21:07 Blood monocytes/100 leukocytes 1 % NRG Manual blood segmented neutrophils/100 leukocytes 78 % NRG Blood band neutrophils/100 leukocytes 7 % NRG Manual blood lymphocytes/100 leukocytes 11 % NRG Blood lymphocytes variant/100 leukocytes 3 % NRG Blood erythrocyte morphology finding identification NORMAL NRG Serum or plasma C reactive protein measu rement (mass/volume) - 11/25/18 21:07 Serum or plasma C reactive protein measurement (mass/v olume) 4.46 mg/dL 0.00-0.50 Bacterial blood culture - 11/25/18 21:07 FREE TEXT EXTERNAL SUSCEPTIBILITY REPORTED 11/28 10: 45 NRG QUANTITY OF GROWTH Isolated NRG Bacterial blood culture [id number] NRG [facility] - 11/25/18 21:0 7 Gentamicin susceptibility test by minimum inhibitory c oncentration <= NRG Levofloxacin susceptibility test by minimum inhibitory concentration <= NRG Tobramycin susceptibility test by minimum inhibitory c oncentration <= NRG Piperacillin/tazobactam susceptibility t est by minimum inhibitory concentration = NRG Ciprofloxacin susceptibility test by minimum inhibitor y concentration <= NRG Meropenem susceptibility test by minimum inhibitory co ncentration 0.5 NRG Aztreonam susceptibility test by minimum inhibitory co ncentration 8 NRG Cefepime susceptibility test by minimum inhibitory con centration 4 NRG Imipenem susceptibility test by minimum inhibitory con centration 2 NRG Ceftazidime susceptibility test by minimum inhibitory concentration <= NRG Influenza virus A and B antigen detectio n - 11/25/18 21:35 FLU RESULT NEGATIVE FOR INFLUENZA A AND B ANTIGENS BY IA NRG Bacterial blood culture - 11/25/18 21:56 QUANTITY OF GROWTH Isolated NRG Bacterial blood culture [id number] NRG Complete blood count (CBC) with automate d white blood cell (WBC) differential - 12/16/18 19:32 Blood leukocytes automated count (number/volume) 2.9 10*3/uL 4.3-11.0 Blood erythrocytes automated count (number/volume) 3.04 10*6/uL 4.35-5.85 Venous blood hemoglobin measurement (mass/volume) 9.0 g/dL 11.5-16.0 Blood hematocrit (volume fraction) 29 % 35-52 Automated erythrocyte mean corpuscular volume 95 [ foz_us] 80-99 Automated erythrocyte mean corpuscular h emoglobin (mass per erythrocyte) 30 pg 25-34 Automated erythrocyte mean corpuscular h emoglobin concentration measurement (mass/volume) 31 g/dL 32-36 Automated erythrocyte distribution width ratio 16. 8 % 10.0- 14.5 Automated blood platelet count (count/volume) 99 1 0*3/uL 130-400 Automated blood platelet mean volume measurement 10.5 [foz_us] 7.4-10.4 Automated blood neutrophils/100 leukocytes 70 % 42-75 Automated blood lymphocytes/100 leukocytes 16 % 12-44 Blood monocytes/100 leukocytes 14 % 0-12 Automated blood eosinophils/100 leukocytes 0 % 0-10 Automated blood basophils/100 leukocytes 0 % 0-10 Blood neutrophils automated count (number/volume) 2.0 10*3 1.8-7.8 Blood lymphocytes automated count (number/volume) 0.5 10*3 1.0-4.0 Blood monocytes automated count (number/volume) 0. 4 10*3 0.0-1.0 Automated eosinophil count 0.0 10*3/uL 0 .0-0.3 Automated blood basophil count (count/volume) 0.0 10*3/uL 0.0-0.1 Blood lactic acid measurement (moles/vol ume) - 12/16/18 19:32 Blood lactic acid measurement (moles/volume) 0.93 mmol/L 0.50-2.00 PT panel in platelet poor plasma by coag ulation assay - 12/16/18 19:32 Prothrombin time (PT) in platelet poor plasma by coagu lation assay 18.2 s 12.2-14.7 INR in platelet poor plasma or blood by coagulation as say 1.5 0.8-1.4 Activated partial thromboplastin time (a PTT) in platelet poor plasma bycoagulation assay - 12/16/18 19:32 Activated partial thromboplastin time (a PTT) in platelet poor plasma bycoagulation assay 36 s 24-35 Comprehensive metabolic panel - 12/16/18 19:32 Serum or plasma sodium measurement (moles/volume) 141 mmol/L 135-145 Serum or plasma potassium measurement (moles/volume) 4.8 mmol/L 3.6-5.0 Serum or plasma chloride measurement (moles/volume) 96 mmol/L 98-107 Carbon dioxide 24 mmol/L 21-32 Serum or plasma anion gap determination (moles/volume) 21 mmol/L 5-14 Serum or plasma urea nitrogen measurement (mass/volume ) 29 mg/dL 7-18 Serum or plasma creatinine measurement (mass/volume) 3.77 mg/dL 0.60-1.30 Serum or plasma urea nitrogen/creatinine mass ratio 8 NRG Serum or plasma creatinine measurement w ith calculation of estimated glomerular filtration rate 12 NRG Serum or plasma glucose measurement (mass/volume) 69 mg/dL 70-105 Serum or plasma calcium measurement (mass/volume) 9.5 mg/dL 8.5-10.1 Serum or plasma total bilirubin measurement (mass/volu me) 0.3 mg/dL 0.1-1.0 Serum or plasma alkaline phosphatase charley surement (enzymatic activity/volume) 222 U/L 40-136 Serum or plasma aspartate aminotransfera se measurement (enzymatic activity/volume) 14 U/L 5-34 Serum or plasma alanine aminotransferase measurement (enzymatic activity/volume) 8 U/L 0-55 Serum or plasma protein measurement (mass/volume) 7.5 g/dL 6.4-8.2 Serum or plasma albumin measurement (mass/volume) 2.9 g/dL 3.2-4.5 CALCIUM CORRECTED 10.4 mg/dL 8.5-10.1 Magnesium - 12/16/18 19:32 Magnesium 1.9 mg/dL 1.6-2.4 Serum or plasma amylase measurement (enz ymatic activity/volume) - 12/16/18 19:32 Serum or plasma amylase measurement (enzymatic activit y/volume) 34 U/L 25-125 Lipase - 12/16/18 19:32 Lipase 13 U/L 8-78 Bacterial blood culture - 12/16/18 19:32 FREE TEXT EXTERNAL SUSCEPTIBILITY REPORTED 12/19 10 :45 NRG QUANTITY OF GROWTH Isolated NRG Bacterial blood culture [id number] NR [facility] - 12/16/18 19:3 2 Gentamicin susceptibility test by minimum inhibitory c oncentration <= NRG Levofloxacin susceptibility test by minimum inhibitory concentration <= NRG Tobramycin susceptibility test by minimum inhibitory c oncentration <= NRG Piperacillin/tazobactam susceptibility t est by minimum inhibitory concentration = NRG Ciprofloxacin susceptibility test by minimum inhibitor y concentration <= NRG Meropenem susceptibility test by minimum inhibitory co ncentration 1 NRG Aztreonam susceptibility test by minimum inhibitory co ncentration 4 NRG Cefepime susceptibility test by minimum inhibitory con centration 4 NRG Imipenem susceptibility test by minimum inhibitory con centration 2 NRG Ceftazidime susceptibility test by minimum inhibitory concentration <= NRG Bacterial blood culture - 12/16/18 20:20 FREE TEXT EXTERNAL SUSCEPTIBILITY REPORTED ON PATIENT' NRG QUANTITY OF GROWTH Isolated NRG Bacterial blood culture [id number] NR FREE TEXT ENTRY 2 OTHER BLOOD CULTURE OF 12/16 NRG Influenza virus A and B antigen detectio n - 12/16/18 20:46 FLU RESULT NEGATIVE FOR INFLUENZA A AND B ANTIGENS BY IA NRG Capillary blood glucose measurement by g lucometer (mass/volume) - 12/16/18 22:31 Capillary blood glucose measurement by glucometer (mas s/volume) 66 mg/dL 70-110 Complete blood count (CBC) with automate d white blood cell (WBC) differential - 02/12/19 10:15 Blood leukocytes automated count (number/volume) 3.8 10*3/uL 4.3-11.0 Blood erythrocytes automated count (number/volume) 2.64 10*6/uL 4.35-5.85 Venous blood hemoglobin measurement (mass/volume) 7.5 g/dL 11.5-16.0 Blood hematocrit (volume fraction) 24 % 35-52 Automated erythrocyte mean corpuscular volume 92 [ foz_us] 80-99 Automated erythrocyte mean corpuscular h emoglobin (mass per erythrocyte) 28 pg 25-34 Automated erythrocyte mean corpuscular h emoglobin concentration measurement (mass/volume) 31 g/dL 32-36 Automated erythrocyte distribution width ratio 15. 9 % 10.0- 14.5 Automated blood platelet count (count/volume) 93 1 0*3/uL 130-400 Automated blood platelet mean volume measurement 10.6 [foz_us] 7.4-10.4 Automated blood neutrophils/100 leukocytes 81 % 42-75 Automated blood lymphocytes/100 leukocytes 9 % 12-44 Blood monocytes/100 leukocytes 9 % 0-12 Automated blood eosinophils/100 leukocytes 0 % 0-10 Automated blood basophils/100 leukocytes 0 % 0-10 Blood neutrophils automated count (number/volume) 3.0 10*3 1.8-7.8 Blood lymphocytes automated count (number/volume) 0.4 10*3 1.0-4.0 Blood monocytes automated count (number/volume) 0. 4 10*3 0.0-1.0 Automated eosinophil count 0.0 10*3/uL 0 .0-0.3 Automated blood basophil count (count/volume) 0.0 10*3/uL 0.0-0.1 Blood lactic acid measurement (moles/vol ume) - 02/12/19 10:15 Blood lactic acid measurement (moles/volume) 0.89 mmol/L 0.50-2.00 Comprehensive metabolic panel - 02/12/19 10:15 Serum or plasma sodium measurement (moles/volume) 134 mmol/L 135-145 Serum or plasma potassium measurement (moles/volume) 5.0 mmol/L 3.6-5.0 Serum or plasma chloride measurement (moles/volume) 93 mmol/L 98-107 Carbon dioxide 27 mmol/L 21-32 Serum or plasma anion gap determination (moles/volume) 14 mmol/L 5-14 Serum or plasma urea nitrogen measurement (mass/volume ) 43 mg/dL 7-18 Serum or plasma creatinine measurement (mass/volume) 5.29 mg/dL 0.60-1.30 Serum or plasma urea nitrogen/creatinine mass ratio 8 NRG Serum or plasma creatinine measurement w ith calculation of estimated glomerular filtration rate 8 NRG Serum or plasma glucose measurement (mass/volume) 50 mg/dL 70-105 Serum or plasma calcium measurement (mass/volume) 9.0 mg/dL 8.5-10.1 Serum or plasma total bilirubin measurement (mass/volu me) 0.4 mg/dL 0.1-1.0 Serum or plasma alkaline phosphatase charley surement (enzymatic activity/volume) 209 U/L 40-136 Serum or plasma aspartate aminotransfera se measurement (enzymatic activity/volume) 14 U/L 5-34 Serum or plasma alanine aminotransferase measurement (enzymatic activity/volume) 6 U/L 0-55 Serum or plasma protein measurement (mass/volume) 6.2 g/dL 6.4-8.2 Serum or plasma albumin measurement (mass/volume) 2.3 g/dL 3.2-4.5 CALCIUM CORRECTED 10.4 mg/dL 8.5-10.1 PT panel in platelet poor plasma by coag ulation assay - 02/12/19 10:15 Prothrombin time (PT) in platelet poor plasma by coagu lation assay 20.4 s 12.2-14.7 INR in platelet poor plasma or blood by coagulation as say 1.7 0.8-1.4 Activated partial thromboplastin time (a PTT) in platelet poor plasma bycoagulation assay - 02/12/19 10:15 Activated partial thromboplastin time (a PTT) in platelet poor plasma bycoagulation assay 42 s 24-35 Influenza virus A and B antigen detectio n - 02/12/19 10:15 FLU RESULT NEGATIVE FOR INFLUENZA A AND B ANTIGENS BY IA NRG Serum or plasma C reactive protein measu rement (mass/volume) - 02/12/19 10:15 Serum or plasma C reactive protein measurement (mass/v olume) 19.45 mg/dL 0.00-0.50 Bacterial blood culture - 02/12/19 10:15 FREE TEXT EXTERNAL SUSCEPTIBILITY REPORTED 9, 1020 NRG QUANTITY OF GROWTH Isolated NRG Bacterial blood culture [id number] NRG [facility] - 02/12/19 10:1 5 Gentamicin susceptibility test by minimum inhibitory c oncentration 4 NRG Levofloxacin susceptibility test by minimum inhibitory concentration <= NRG Tobramycin susceptibility test by minimum inhibitory c oncentration <= NRG Piperacillin/tazobactam susceptibility t est by minimum inhibitory concentration = NRG Ciprofloxacin susceptibility test by minimum inhibitor y concentration <= NRG Meropenem susceptibility test by minimum inhibitory co ncentration 0.5 NRG Aztreonam susceptibility test by minimum inhibitory co ncentration 8 NRG Cefepime susceptibility test by minimum inhibitory con centration 2 NRG Imipenem susceptibility test by minimum inhibitory con centration 2 NRG Ceftazidime susceptibility test by minimum inhibitory concentration <= NRG Bacterial blood culture - 02/12/19 10:30 FREE TEXT EXTERNAL REFER TO [id number] FOR STUDIES NRG QUANTITY OF GROWTH Isolated NRG Bacterial blood culture [id number] NRG Capillary blood glucose measurement by g lucometer (mass/volume) - 02/12/19 11:30 Capillary blood glucose measurement by glucometer (mas s/volume) 79 mg/dL 70-110 Capillary blood glucose measurement by g lucometer (mass/volume) - 02/12/19 13:49 Capillary blood glucose measurement by glucometer (mas s/volume) 123 mg/dL 70-110 Complete blood count (CBC) with automate d white blood cell (WBC) differential - 03/13/19 21:40 Blood leukocytes automated count (number/volume) 7.3 10*3/uL 4.3-11.0 Blood erythrocytes automated count (number/volume) 2.61 10*6/uL 4.35-5.85 Venous blood hemoglobin measurement (mass/volume) 7.3 g/dL 11.5-16.0 Blood hematocrit (volume fraction) 24 % 35-52 Automated erythrocyte mean corpuscular volume 92 [ foz_us] 80-99 Automated erythrocyte mean corpuscular h emoglobin (mass per erythrocyte) 28 pg 25-34 Automated erythrocyte mean corpuscular h emoglobin concentration measurement (mass/volume) 30 g/dL 32-36 Automated erythrocyte distribution width ratio 20. 2 % 10.0- 14.5 Automated blood platelet count (count/volume) 127 10*3/uL 130-400 Automated blood platelet mean volume measurement 10.4 [foz_us] 7.4-10.4 Automated blood neutrophils/100 leukocytes 83 % 42-75 Automated blood lymphocytes/100 leukocytes 6 % 12-44 Blood monocytes/100 leukocytes 10 % 0-12 Automated blood eosinophils/100 leukocytes 0 % 0-10 Automated blood basophils/100 leukocytes 0 % 0-10 Blood neutrophils automated count (number/volume) 6.1 10*3 1.8-7.8 Blood lymphocytes automated count (number/volume) 0.5 10*3 1.0-4.0 Blood monocytes automated count (number/volume) 0. 7 10*3 0.0-1.0 Automated eosinophil count 0.0 10*3/uL 0 .0-0.3 Automated blood basophil count (count/volume) 0.0 10*3/uL 0.0-0.1 Influenza virus A and B antigen detectio n - 03/13/19 21:40 FLU RESULT NEGATIVE FOR INFLUENZA A AND B ANTIGENS BY IA NRG PT panel in platelet poor plasma by coag ulation assay - 03/13/19 21:40 Prothrombin time (PT) in platelet poor plasma by coagu lation assay 18.3 s 12.2-14.7 INR in platelet poor plasma or blood by coagulation as say 1.5 0.8-1.4 Activated partial thromboplastin time (a PTT) in platelet poor plasma bycoagulation assay - 03/13/19 21:40 Activated partial thromboplastin time (a PTT) in platelet poor plasma bycoagulation assay 39 s 24-35 Comprehensive metabolic panel - 03/13/19 21:40 Serum or plasma sodium measurement (moles/volume) 140 mmol/L 135-145 Serum or plasma potassium measurement (moles/volume) 2.7 mmol/L 3.6-5.0 Serum or plasma chloride measurement (moles/volume) 99 mmol/L 98-107 Carbon dioxide 28 mmol/L 21-32 Serum or plasma anion gap determination (moles/volume) 13 mmol/L 5-14 Serum or plasma urea nitrogen measurement (mass/volume ) 8 mg/dL 7-18 Serum or plasma creatinine measurement (mass/volume) 1.81 mg/dL 0.60-1.30 Serum or plasma urea nitrogen/creatinine mass ratio 4 NRG Serum or plasma creatinine measurement w ith calculation of estimated glomerular filtration rate 29 NRG Serum or plasma glucose measurement (mass/volume) 57 mg/dL 70-105 Serum or plasma calcium measurement (mass/volume) 8.2 mg/dL 8.5-10.1 Serum or plasma total bilirubin measurement (mass/volu me) 0.4 mg/dL 0.1-1.0 Serum or plasma alkaline phosphatase charley surement (enzymatic activity/volume) 217 U/L 40-136 Serum or plasma aspartate aminotransfera se measurement (enzymatic activity/volume) 11 U/L 5-34 Serum or plasma alanine aminotransferase measurement (enzymatic activity/volume) < U/L 0-55 Serum or plasma protein measurement (mass/volume) 6.8 g/dL 6.4-8.2 Serum or plasma albumin measurement (mass/volume) 2.3 g/dL 3.2-4.5 CALCIUM CORRECTED 9.6 mg/dL 8.5-10.1 Manual absolute plasma cell count - 02/24 11/12 21:40 Blood monocytes/100 leukocytes 6 % NRG Manual blood segmented neutrophils/100 leukocytes 87 % NRG Manual blood lymphocytes/100 leukocytes 7 % NRG Blood erythrocyte morphology finding identification NORMAL NRG Bacterial blood culture - 03/13/19 21:40 FREE TEXT EXTERNAL RML CONFIRMED ID [id number] NRG QUANTITY OF GROWTH Isolated NRG Bacterial blood culture [id number] NRG [facility] - 03/13/19 21:4 0 Gentamicin susceptibility test by minimum inhibitory c oncentration <= NRG Levofloxacin susceptibility test by minimum inhibitory concentration <= NRG Tobramycin susceptibility test by minimum inhibitory c oncentration <= NRG Piperacillin/tazobactam susceptibility t est by minimum inhibitory concentration = NRG Ciprofloxacin susceptibility test by minimum inhibitor y concentration <= NRG Meropenem susceptibility test by minimum inhibitory co ncentration 1 NRG Aztreonam susceptibility test by minimum inhibitory co ncentration 8 NRG Cefepime susceptibility test by minimum inhibitory con centration 4 NRG Imipenem susceptibility test by minimum inhibitory con centration 1 NRG Ceftazidime susceptibility test by minimum inhibitory concentration <= NRG Bacterial blood culture - 03/13/19 22:00 Bacterial blood culture NG NRG Blood lactic acid measurement (moles/vol ume) - 03/13/19 22:05 Blood lactic acid measurement (moles/volume) 0.88 mmol/L 0.50-2.00 Capillary blood glucose measurement by g lucometer (mass/volume) - 03/13/19 22:53 Capillary blood glucose measurement by glucometer (mas s/volume) 134 mg/dL 70-110 Capillary blood glucose measurement by g lucometer (mass/volume) - 03/14/19 00:35 Capillary blood glucose measurement by glucometer (mas s/volume) 90 mg/dL 70-110 Encounters ACCT No. Visit Date/Time Discharge Status Pt. Type Provider Facility Loc./Unit Complaint [id number] 02/14/2019 11:00:00 02/14/2019 23:59: 59 CLS Outpatient SHYANNE ALFONSO APRN [facility] [id number] 03/13/2019 21:35:00 00:40:00 DIS Outpatient TAL LOMAX DO [facility] ER FEVER [id number] 02/27/2019 15:43:00 18:47:00 DIS Outpatient FAIZAN MUIR MD [facility] ER DIALYSIS SITE B SOFYA, NAUSEA [id number] 02/12/2019 10:08:00 13:50:00 DIS Emergency KARON BELL, ZACHERY Glez [facility] ER LETHARGY;FEVER [id number] 12/16/2018 19:30:00 22:34:00 DIS Emergency DAMI DO, TAL K Vi [facility] ER N,V,FEVER [id number] 11/25/2018 20:44:00 23:56:00 DIS Emergency KARON BELL, ZACHERY Glez [facility] ER FEVER [id number] 08/02/2018 07:55:00 14:15:00 DIS Outpatient SHYANNE ALFONSO [facility] D63.8 [id number] 07/05/2018 07:55:00 17:40:00 DIS Outpatient YVONNE LADD MD [facility] ANEMIA [id number] 06/20/2018 09:32:00 12:15:00 DIS Emergency JUAN BROWN MD [facility] ER ABD BLEEDING [id number] 06/14/2018 07:16:00 14:55:00 DIS Outpatient YVONNE LADD MD [facility] TRANSFUSION [id number] 05/16/2018 17:16:00 23:59:59 CLS Outpatient KELLI PRAJAPATI MD [facility] ANEMIA [id number] 05/15/2018 06:19:00 10:22:00 DIS Outpatient MADDIE DPMCHRISTAIN Q [facility] OSTEOMYELITIS 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 TOE [id number] 05/14/2018 10:45:00 11:38:00 DIS Outpatient MADDIE DPM DAVDI Q [facility] 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 [id number] 05/03/2018 13:31:00 019 16:00:00 DIS Outpatient SELF KELLI BELL [facility] MERCA [id number] 04/17/2018 15:23:00 019 20:46:00 DIS Emergency FAIZAN MUIR MD [facility] ER ABD PAIN [id number] 04/15/2018 21:54:00 019 02:04:00 DIS Emergency ZACHERY BRANTLEY MD [facility] ER ABD WOUND [id number] 03/04/2018 09:01:00 11:52:00 DIS Emergency FAIZAN MUIR MD [facility] ER ALTERED MENTAL STATUS [id number] 02/23/2018 23:55:00 018 02:40:00 DIS Outpatient FAIZAN MUIR MD [facility] ER BLOOD SUGAR 202 , POSS FEVER [id number] 02/21/2018 07:46:00 018 12:15:00 DIS Outpatient KELLI PRAJAPATI MD [facility] ANEMIA [id number] 01/29/2018 20:05:00 21:54:00 DIS Emergency DAMI ZULETA TAL Sadie [facility] ER FEVER/AMS [id number] 01/23/2018 10:19:00 13:54:00 DIS Emergency FAIZAN MUIR MD [facility] ER "DOESN'T FEEL R IGHT" [id number] 01/05/2018 19:02:00 00:07:00 DIS Emergency FAIAZN MUIR MD [facility] ER WOUND [id number] 12/28/2017 19:53:00 22:13:00 DIS Emergency ZACHERY BRANTLEY MD [facility] ER AMS [id number] 11/07/2017 20:06:00 Document Registration [id number] 11/02/2017 22:22:00 Document Registration
== END 2019-02-27 18:47 | disposition home or self-care (01) ==
LOC: EDUNIT# 15:42 → ER 15:43
DX: E11.22 Type 2 diabetes mellitus with diabetic chronic kidney disease (principal); I13.2 Hypertensive heart and chronic kidney disease with heart failure and with stage 5 chronic kidney disease, or end stage renal disease; N18.6 End stage renal disease; I50.9 Heart failure, unspecified; E78.00 Pure hypercholesterolemia, unspecified; E11.42 Type 2 diabetes mellitus with diabetic polyneuropathy; K21.9 Gastro-esophageal reflux disease without esophagitis; E03.9 Hypothyroidism, unspecified; F41.9 Anxiety disorder, unspecified; D64.9 Anemia, unspecified; Z99.2 Dependence on renal dialysis; Z99.81 Dependence on supplemental oxygen; Z88.8 Allergy status to other drugs, medicaments and biological substances; Z98.51 Tubal ligation status; Z79.82 Long term (current) use of aspirin; Z79.4 Long term (current) use of insulin; Z87.891 Personal history of nicotine dependence
CPT/HCPCS: 99283

== ENCOUNTER 2019-03-13 21:32 | Emergency (ER) | payer MEDICARE, MEDICAID ==
[~2019-03-13] VITALS: Ht 167 cm; Wt 52.2 kg
[~2019-03-13 21:32] MED LIST changes: -SIMV10TA26 PO; +SIMV10TA3 PO
[2019-03-13] MEDS ORDERED: ACETAMINOPHEN 500 MG TAB (TYLENOL) PO PRN (21:45)
[2019-03-13] MEDS ORDERED: NS IV 1000 ML 2,313.33 ML IV ONE (21:45)
--- NOTE | 2019-03-13 21:52 | ED General ---
General Chief Complaint: Fever-Adult/Adol Stated Complaint: FEVER Source of Information: Patient (GIVES MINIMAL INFORMATION--NOT TALKING BUT ANSWERS SOME QUESTIONS BY NODDING HEAD YES/NO. ), EMS History of Present Illness Date Seen by Provider: Mar 13, 2019 Time Seen by Provider: 21:34 Initial Comments PT ARRIVES VIA EMS FROM [facility] [address] PT HAS ESRD ON DIALYSIS M--, AND HAD DIALYSIS TODAY ( MONDAY) PT HAS ONGOING CELLULITIS OF LEGS, AND HAS BEEN ON IV ANTIBIOTICS VIA PICC LINE IN RIGHT ARM, REPORTEDLY FINISHED ANTIBIOTICS A FEW DAYS AGO--IS NOT KNOWN WHAT ANTIBIOTIC, OR WHEN IT WAS STARTED AND STOPPED. NURSING STAFF AT [facility] WERE NOT ABLE TO GIVE THIS INFORMATION AND PT DOES NOT KNOW. PT WAS NOTED TO HAVE FEVER TONIGHT--WAS 102.8 FOR EMS EMS REPORT THAT PT WAS GIVEN PERCOCET JUST PRIOR TO ARRIVAL, BY [facility] STAFF. BP WAS IN 110'S SYSTOLIC FOR EMS, WITH PULSE IN 80'S O2 SAT 100 % ON O2 AT 2L/NC FOR EMS O2 SAT IS 84% ON ROOM AIR ON ARRIVAL. PT PLACED ON O2 AT 2L/NC AND O2 SATS QUICKLY UP TO MID TO UPPER 90'S NO OTHER INFORMATION ABOUT CURRENT CONDITION IS OBTAINABLE AT THIS TIME PT IS DNR PCP: DR. IRIZARRY Allergies and Home Medications Allergies Coded Allergies: lisinopril (Verified Allergy, Unknown, 05/15/18) Home Medications Amlodipine Besylate 10 Mg Tablet, 10 MG PO DAILY, (Reported) Ascorbic Acid 500 Mg Capsule, 500 MG PO DAILY, (Reported) Aspirin 325 Mg Tablet, 325 MG PO DAILY, (Reported) Carvedilol 25 Mg Tab, 25 MG PO BID, (Reported) Cholecalciferol 5,000 Unit Capsule, 5,000 UNIT PO DAILY, (Reported) Clonidine HCl 0.1 Mg Tablet, 0.1 MG PO TID, (Reported) Darbepoetin Jesus 200 Mcg/Ml Soln, 100 MCG SQ WEEK, (Reported) Docusate Sodium 100 Mg Capsule, 100 MG PO BID, (Reported) Folic Acid 1 Mg Tablet, 1 MG PO DAILY, (Reported) Gabapentin 100 Mg Capsule, 100 MG PO HS, (Reported) Hydrocodone Bit/Acetaminophen 1 Tab Tab, 1-2 TAB PO Q6H PRN for PAIN-MODERATE Prescribed by: DAVID PERKINS on 05/15/18 0811 Insulin Glargine,Hum.rec.anlog 100 Unit/1 Ml Insuln.pen, 4 UNIT SQ HS, (Reported) Insulin Lispro 100 Unit/1 Ml Insuln.pen, 0-14 UNIT SQ TID PRN for sliding scale, (Reported) Lanthanum Carbonate 1,000 Mg Powd.pack, 1,000 MG PO TIDWM, (Reported) Pantoprazole Sodium 40 Mg Tablet.dr, 40 MG PO DAILY, (Reported) Sevelamer Carbonate 800 Mg Tablet, 1,600 MG PO AC, (Reported) Simvastatin 10 Mg Tablet, 10 MG PO HS, (Reported) Review of Systems Review of Systems Constitutional: fever, malaise (CHRONIC ), weakness (CHRONIC) Respiratory: no symptoms reported; No cough, No short of breath, No wheezing Cardiovascular: no symptoms reported; No chest pain Gastrointestinal: no symptoms reported; No abdominal pain, No nausea, No vomiting Genitourinary: other (PT DOES NOT MAKE URINE) Musculoskeletal: see HPI Skin: see HPI Psychiatric/Neurological: No Symptoms Reported; Denies Headache; Pre-Existing Deficit (PERIPHERAL NEUROPATHY) Hematologic/Lymphatic: Anemia Past Padomxs-Myfiin-Ldkrmt Hx Patient Social History Type Used: Cigarettes 2nd Hand Smoke Exposure: No Recent Foreign Travel: No Contact w/Someone Who Travel: No Recent Hopitalizations: No Immunizations Up To Date Tetanus Booster (TDap): Unknown PED Vaccines UTD: Yes Seasonal Allergies Seasonal Allergies: No Past Medical History Surgeries: Yes (A-V DIALYSIS GRAFT/fistula left upper extremity; ABDOMINAL WALL WOUND) Abdominal, Amputation, Dialysis, Tubal Ligation, Vascular Surgery Respiratory: Yes (CHRONIC HYPOXIA, uses 3 L by nasal cannula continuously) Pneumonia Cardiac: Yes (CALCIPHYLAXIS; CHF) Chronic Edema/Swelling, High Cholesterol, Hypertension Neurological: Yes (PERIPHERAL NEUROPATHY) Neuropathy 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: 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 Genitourinary: Yes Renal Failure, Dialysis Gastrointestinal: Yes (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; ) Gastroesophageal Reflux Musculoskeletal: Yes (OSTEOMYELITIS; CHRONIC GENERALIZED WEAKNESS AND PAIN ) Endocrine: Yes (CALCIPHYLAXIS) Diabetes, Insulin dep, Hypothyroidsim HEENT: No Cancer: No Psychosocial: Yes Anxiety 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 4.0oz. 77.672162dj; 18.00 BMI Method:Stated Focused Exam Lactate Level 03/13/19 22:05: Lactic Acid Level 0.88 Lactic Acid Level Progress/Results/Core Measures Suspected Sepsis SIRS Temperature: Pulse: Respiratory Rate: Laboratory Tests 03/13/19 21:40: White Blood Count 7.3 Blood Pressure / Mean: 03/13/19 22:05: Lactic Acid Level 0.88 Laboratory Tests 03/13/19 21:40: Creatinine 1.81H, INR Comment 1.5H, Platelet Count 127L, Total Bilirubin 0.4 Results/Orders Lab Results Laboratory Tests Test 03/13/19 21:40 03/13/19 22:05 03/13/19 22:53 03/14/19 00:35 Range/Units White Blood Count 7.3 4.3-11.0 10^3/uL Red Blood Count 2.61 L 4.35-5.85 10^6/uL Hemoglobin 7.3 L 11.5-16.0 G/DL Hematocrit 24 L 35-52 % Mean Corpuscular Volume 92 80-99 FL Mean Corpuscular Hemoglobin 28 25-34 PG Mean Corpuscular Hemoglobin Concent 30 L 32-36 G/DL Red Cell Distribution Width 20.2 H 10.0-14.5 % Platelet Count 127 L 130-400 10^3/uL Mean Platelet Volume 10.4 7.4-10.4 FL Neutrophils (%) (Auto) 83 H 42-75 % Lymphocytes (%) (Auto) 6 L 12-44 % Monocytes (%) (Auto) 10 0-12 % Eosinophils (%) (Auto) 0 0-10 % Basophils (%) (Auto) 0 0-10 % Neutrophils # (Auto) 6.1 1.8-7.8 X 10^3 Lymphocytes # (Auto) 0.5 L 1.0-4.0 X 10^3 Monocytes # (Auto) 0.7 0.0-1.0 X 10^3 Eosinophils # (Auto) 0.0 0.0-0.3 10^3/uL Basophils # (Auto) 0.0 0.0-0.1 10^3/uL Neutrophils % (Manual) 87 % Lymphocytes % (Manual) 7 % Monocytes % (Manual) 6 % Blood Morphology Comment NORMAL Prothrombin Time 18.3 H 12.2-14.7 SEC INR Comment 1.5 H 0.8-1.4 Activated Partial Thromboplast Time 39 H 24-35 SEC Sodium Level 140 135-145 MMOL/L Potassium Level 2.7 L 3.6-5.0 MMOL/L Chloride Level 99 98-107 MMOL/L Carbon Dioxide Level 28 21-32 MMOL/L Anion Gap 13 5-14 MMOL/L Blood Urea Nitrogen 8 7-18 MG/DL Creatinine 1.81 H 0.60-1.30 MG/DL Estimat Glomerular Filtration Rate 29 BUN/Creatinine Ratio 4 Glucose Level 57 *L 70-105 MG/DL Calcium Level 8.2 L 8.5-10.1 MG/DL Corrected Calcium 9.6 8.5-10.1 MG/DL Total Bilirubin 0.4 0.1-1.0 MG/DL Aspartate Amino Transf (AST/SGOT) 11 5-34 U/L Alanine Aminotransferase (ALT/SGPT) < 6 0-55 U/L Alkaline Phosphatase 217 H 40-136 U/L Total Protein 6.8 6.4-8.2 GM/DL Albumin 2.3 L 3.2-4.5 GM/DL Lactic Acid Level 0.88 0.50-2.00 MMOL/L Glucometer 134 H 90 70-110 MG/DL Micro Results Microbiology 03/13/19 Influenza Types A,B Antigen (OWLF) - Final, Complete My Orders Orders - TAL LOMAX DO Cbc With Automated Diff (03/13/19 21:43) Comprehensive Metabolic Panel (03/13/19 21:43) Blood Culture (03/13/19 21:43) Sputum Culture (03/13/19 21:43) Protime With Inr (03/13/19 21:43) Partial Thromboplastin Time (03/13/19 21:43) Chest 1 View, Ap/Pa Only (03/13/19 21:43) Acetaminophen Tablet (Tylenol Tablet) (03/13/19 21:45) Ed Iv/Invasive Line Start (03/13/19 21:43) Ed Iv/Invasive Line Start (03/13/19 21:43) Ekg Tracing (03/13/19 21:43) Vital Signs Adult Sepsis Patie Q15M (03/13/19 21:43) O2 (03/13/19 21:43) Remove Rings In Anticipation O (03/13/19 21:43) Lactic Acid Analyzer (03/13/19 21:43) Influenza A And B Antigens (03/13/19 21:43) Ns Iv 1000 Ml (Sodium Chloride 0.9%) (03/13/19 21:45) Manual Differential (03/13/19 21:40) Piperacillin Sodium/Tazobactam (Zosyn Vi (03/13/19 22:15) Vancomycin Injection (Vancomycin Injecti (03/13/19 22:15) D50w (Emergency) Syringe (Dextrose 50% 5 (03/13/19 22:15) Accucheck Stat ONCE (03/13/19 22:43) Accucheck Stat ONCE (03/14/19 00:30) Medications Given in ED Current Medications Medications Dose Ordered Sig/Jorge A Route Start Time Stop Time Status Last Admin Dose Admin Acetaminophen 1,000 mg ONCE PRN PO 03/13/19 21:45 03/13/19 21:51 DC 03/13/19 21:51 1,000 MG Dextrose 50 ml ONCE ONCE IV 03/13/19 22:15 03/13/19 22:16 DC 03/13/19 22:19 50 ML Piperacillin Sod/ Tazobactam Sod 4.5 gm/Sodium Chloride 100 ml @ 200 mls/hr ONCE ONCE IV 03/13/19 22:15 03/13/19 22:44 DC 03/13/19 22:22 200 MLS/HR Sodium Chloride 2,313.33 ml @ 2,313.33 mls/hr ONCE ONCE IV 03/13/19 21:45 03/13/19 22:44 DC 03/13/19 21:50 2,313.33 MLS/HR Vancomycin HCl 1000 mg/Sodium Chloride 250 ml @ 250 mls/hr ONCE ONCE IV 03/13/19 22:15 03/13/19 23:14 DC 03/13/19 22:23 250 MLS/HR Vital Signs/I&O 03/13/19 03/13/19 03/13/19 03/14/19 21:32 21:32 21:51 00:35 Temp 38.3 38.3 37.7 Pulse 87 65 Resp 15 20 B/P (MAP) 97/71 (80) 106/38 Pulse Ox 99 99 100 O2 Delivery Nasal Cannula Nasal Cannula Nasal Cannula O2 Flow Rate 2.00 2.00 2.00 03/14/19 00:00 Intake Total 350 ml Balance 350 ml Capillary Refill : Progress Note : Progress Note GIVEN TYLENOL SHORTLY AFTER ARRIVAL. INITIAL TEMP HERE 38.3=101, TEMP DOWN TO 37.7=99.8 AT TIME OF DISMISSAL NO DETERIORATION IN PT'S CONDITION DURING ER STAY BP 106/38, PULSE 65, RR 20, O2 SAT 100% ON 2L/NC PRIOR TO DISMISSAL PT GIVEN 1 AMP D50 FOR GLUCOSE OF 57. MULTIPLE RECHECKS DONE, GLUCOSE 90 AT TIME OF TRANSFER Departure Impression Primary Impression: Sepsis Additional Impressions: Bilateral lower leg cellulitis CHRONIC DIABETIC LEG ULCERS ESRD (end stage renal disease) on dialysis Hypoglycemia CHRONIC HYPOXIA MILD FLUID OVERLOAD Chronic anemia IDDM (insulin dependent diabetes mellitus) Condition: Stable Departure-Patient Inst. Referrals: KELLI PRAJAPATI MD (PCP/Family) Primary Care Physician TAL LOMAX DO Mar 13, 2019 21:52
[2019-03-13 21:53] LABS: BASOPHILS % (AUTO) 0 % (0-10); EOSINOPHILS % (AUTO) 0 % (0-10); HEMATOCRIT 24 % (35-52); HEMOGLOBIN 7.3 G/DL (11.5-16.0); LYMPHOCYTES # (AUTO) 0.5 X 10^3 (1.0-4.0); LYMPHOCYTES % (AUTO) 6 % (12-44); MEAN CORPUSCULAR HEMOGLOBIN 28 PG (25-34); MEAN CORPUSCULAR HGB CONC 30 G/DL (32-36); MEAN CORPUSCULAR VOLUME 92 FL (80-99); MEAN PLATELET VOLUME 10.4 FL (7.4-10.4); MONOCYTES # (AUTO) 0.7 X 10^3 (0.0-1.0); MONOCYTES % (AUTO) 10 % (0-12); NEUTROPHILS # (AUTO) 6.1 X 10^3 (1.8-7.8); NEUTROPHILS % (AUTO) 83 % (42-75); PLATELET COUNT 127 10^3/uL (130-400); RED CELL DISTRIBUTION WIDTH 20.2 % (10.0-14.5); WHITE BLOOD COUNT 7.3 10^3/uL (4.3-11.0)
[2019-03-13 22:10] LABS: INR 1.5 (0.8-1.4); PROTHROMBIN TIME PATIENT 18.3 SEC (12.2-14.7)
[2019-03-13 22:12] LABS: ALANINE AMINOTRANSFERASE < 6 U/L (0-55); ALBUMIN 2.3 GM/DL (3.2-4.5); ALKALINE PHOSPHATASE 217 U/L (40-136); BILIRUBIN,TOTAL 0.4 MG/DL (0.1-1.0); BUN/CREATININE RATIO 4; CALCIUM 8.2 MG/DL (8.5-10.1); CARBON DIOXIDE 28 MMOL/L (21-32); CHLORIDE 99 MMOL/L (98-107); CREATININE SERUM 1.81 MG/DL (0.60-1.30); GFR ESTIMATED 29; POTASSIUM 2.7 MMOL/L (3.6-5.0); SODIUM 140 MMOL/L (135-145); TOTAL PROTEIN 6.8 GM/DL (6.4-8.2)
[2019-03-13 22:14] LABS: GLUCOSE 57 MG/DL (70-105)
[2019-03-13] MEDS ORDERED: VANCOMYCIN INJECTION 1,000 MG in NS (IVPB) 250 ML IV ONE (22:15)
[2019-03-13] MEDS ORDERED: PIPERACILLIN SODIUM/TAZOBACTAM 4.5 GM in NS (IVPB) 100 ML IV ONE (22:15)
[2019-03-13] MEDS ORDERED: DEXTROSE 50% 50 ML (IMS) SYR IV ONE (22:15)
[2019-03-13 22:30] LABS: LYMPHOCYTES % (MANUAL) 7 %; NEUTROPHILS % (MANUAL) 87 %
[2019-03-13 22:31] LABS: MONOCYTES % (MANUAL) 6 %; RBC MORPH NORMAL
[2019-03-14 00:35] VITALS: BP 106/38
--- NOTE | 2019-03-14 06:16 | Diagnostic Imaging Report ---
INDICATION: Fever. COMPARISON: 02/12/2019 FINDINGS: Single frontal radiographic view of the chest was obtained and demonstrates stable mild cardiomegaly and mild prominence of the pulmonary vasculature. Lungs show low inspiratory volumes with asymmetric elevation of the right hemidiaphragm and mild right basilar atelectasis. Otherwise, lungs are clear. No large effusion or pneumothorax is seen. Osseous structures show no gross acute abnormalities. IMPRESSION: 1. Mild cardiomegaly and mild pulmonary vascular congestion. Dictated by: Dictated on workstation # [id number]
== END 2019-03-14 00:40 | disposition short-term general hospital (02) ==
LOC: EDUNIT# 21:34 → ER 21:35
DX: A41.9 Sepsis, unspecified organism (principal); R65.20 Severe sepsis without septic shock; E11.22 Type 2 diabetes mellitus with diabetic chronic kidney disease; I13.2 Hypertensive heart and chronic kidney disease with heart failure and with stage 5 chronic kidney disease, or end stage renal disease; N18.6 End stage renal disease; I50.9 Heart failure, unspecified; L03.115 Cellulitis of right lower limb; L03.116 Cellulitis of left lower limb; E11.649 Type 2 diabetes mellitus with hypoglycemia without coma; D64.9 Anemia, unspecified; R09.02 Hypoxemia; E11.621 Type 2 diabetes mellitus with foot ulcer; L97.509 Non-pressure chronic ulcer of other part of unspecified foot with unspecified severity; E78.00 Pure hypercholesterolemia, unspecified; E11.42 Type 2 diabetes mellitus with diabetic polyneuropathy; F41.9 Anxiety disorder, unspecified; K21.9 Gastro-esophageal reflux disease without esophagitis; E03.9 Hypothyroidism, unspecified; Z99.2 Dependence on renal dialysis; Z88.8 Allergy status to other drugs, medicaments and biological substances; Z79.82 Long term (current) use of aspirin; Z79.4 Long term (current) use of insulin; Z98.51 Tubal ligation status; Z99.81 Dependence on supplemental oxygen
CPT/HCPCS: 36415; 71045; 80053; 82962; 83605; 85007; 85027; 85610; 85730; 87040; 87077; 87804; 93005; 96361; 96365; 96367; 96368; 96375